=== PATIENT | male | born 1945 | race Caucasian/White ===

== ENCOUNTER → 2016-02-20 08:25 | Outpatient (CLI) | payer MEDICARE ==
[2015-08-22 13:38] VITALS: BMI 25.1
[~2016-02-20 08:25] MED LIST: ALBUTEROL2.5 MG/3 M UPD; ASPIRIN81 MG PO; CARAFATE1 G/10 ML PO; CELEXA20 MG PO; COLACE100 MG PO; CORDARONE200 MG PO; COREG 3.1253.125 MG PO; COUMADIN2.5 MG PO; COUMADIN5 MG PO; COZAAR50 MG PO; ELIQUIS2.5 MG PO; FERREX 150 PLUS1 CAP PO; FUROSEMIDE20 MG PO; GLUCOPHAGE1000 MG PO; HYDROCODONE-APA1 TAB PO; K-DUR20 MEQ PO; K-TAB10 MEQ PO; LASIX INJ40 MG/4 ML PO; LASIX20 MG PO; LISINOPRIL10 MG PO; LYRICA75 MG PO; MUCINEX600 MG PO; MULTIPLE VITAMI1 TA1 PO; NIFEDICAL30 MG/BOTT PO; NYSTATIN ORAL SU5 ML PO; NYSTATIN15 GM TOPICAL; PLAVIX75 MG PO; PRAVACHOL20 MG PO; PRAVASTATIN SOD10 MG PO; PREDNISONE10 MG PO; SENOKOT-S TABLE1 TAB PO; SINGULAIR10 MG PO; SOMA350 MG PO; TESSALON PERLE100 MG PO; ULTRACET TABLET1 TAB PO; ZOLOFT100 MG PO; ZOSYN 3.3753.375 G1 IV
[2016-02-20 09:37] LABS: PLT FUNCT.(P2Y12) PLAVIX 94 PRU (194-418)
== END | disposition home or self-care (01) ==
LOC: D.LAB 08:00
PROVIDERS: Internal Medicine Cardiovascular Disease
DX: Z51.81 Encounter for therapeutic drug level monitoring (principal); Z79.02 Long term (current) use of antithrombotics/antiplatelets

== ENCOUNTER 2016-03-09 18:16 | Inpatient (IN) | payer MEDICARE ==
[~2016-03-09] VITALS: Ht 177.8 cm; Wt 83.5 kg
[~2016-03-09 18:16] MED LIST changes: -COREG 3.1253.125 MG PO; -FERREX 150 PLUS1 CAP PO; -MUCINEX600 MG PO; -PLAVIX75 MG PO; -PREDNISONE10 MG PO; -SINGULAIR10 MG PO
[2016-03-09 20:00] VITALS: BP 112/65
[2016-03-09 22:39] VITALS: BP 112/65; BMI 26.0
--- NOTE | 2016-03-09 23:58 | NUR ---
PT ARRIVED TO UNIT VIA WHEELCHAIR AND FAMILY IN ROOM AT BEDSIDE CALL LIGHT IN REACH SRX2 BED LOW AND LOCKED NO DISTRESS OBSERVED RESPERATIONS EVEN SPO2 89% ON ROOM AIR PT PLACED ON 2LNC AND BREATHING TREATMENT ADMIN PT TOLERATED WELL NO DISTRESS OBSERVED WILL MONITOR
[2016-03-10] VITALS: BP 113/70
[2016-03-10 04:00] VITALS: BP 121/71
[2016-03-10 08:00] VITALS: BP 125/72
[2016-03-10 12:00] VITALS: BP 109/65
--- NOTE | 2016-03-10 12:10 | NUR ---
THIS AM PATIENT SOUNDED VERY WET IN LUNGS. IV STARTED WITH 20 GA IN R FOREARM. LASIX 40 MG GIVEN IV. AT BEDSIDE. UP TO BR WITH WIFES ASSISTANCE. FOR LUNCH PATIENT UP IN CHAIR TO EAT. WILL CONTINUE TO MONITOR
[2016-03-10 13:37] LABS: BASOPHILS 0.2 % (0.0-2.0); EOSINOPHILS 0.1 % (0-7); HEMATOCRIT 34.5 % (42.0-54.0); IMMATURE GRANULOCYTES 0.2 % (0-5); LYMPHOCYTES 18.6 % (15-50); MCH 23.6 pg (26.0-34.0); MCV 81.4 fL (80.0-100.0); MEAN PLATELET VOLUME 11.2 fL (7.4-10.4); MONOCYTES 12.3 % (2-11); NEUTROPHILS 68.6 % (40-80); PLATELET COUNT 260 10x3/uL (130-400); RBC 4.24 10x6/uL (4.20-6.10); RDW 17.7 % (11.5-14.5); WBC 8.2 10x3/uL (4.8-10.8)
[2016-03-10 14:00] LABS: ALBUMIN 3.1 g/dL (3.4-5.0); BILIRUBIN - TOTAL 0.55 mg/dL (0.2-1.3); CALCIUM 8.6 mg/dL (8.5-10.1); CARBON DIOXIDE 21.5 mmol/L (21.0-32.0); CREATININE - SERUM 1.7 mg/dL (0.6-1.3); POTASSIUM - SERUM 5.5 mmol/L (3.5-5.1); PROTEIN - SERUM 7.5 g/dL (6.4-8.2)
--- NOTE | 2016-03-10 14:00 | NUR ---
REC'D PT FROM [facility]. PT IS RESTING QUIETLY IN BED WITH EYES SHUT. RR NONLABORED WITH NC @2L IN PLACE. PT HAS A R.FA PIV WITH DRSG CDI AND SWAB CAPS IN USE. NO S/S OF DISTRESS OR ANY CURRENT NEEDS AT THIS TIME. CL IN REACH, BED IN LOWEST, SIDE RAILS X2. WILL CTM.
[2016-03-10 14:17] LABS: CKMB 1.5 U/L (0.0-3.6); CREATINE KINASE 116 UL (21-232); TROPONIN-I 0.018 ng/mL (0.000-0.060)
--- NOTE | 2016-03-10 14:25 | NUR ---
Patient Name: YINKA SANDHU Admission Status: Urgent Accout number: [id number] Admission Date: 03-09-2016 : 1945 Admission Diagnosis: Attending: HÉCTOR Current LOS: 1 Anticipated DC Date: Planned Disposition: Home Primary Insurance: MEDICARE A & B Discharge Planning Comments: * Is the patient Alert and Oriented? Yes 0 * How many steps to enter\exit or inside your home? NONE 0 * PCP DR. SMITH 0 * Pharmacy [facility] 0 * Preadmission Environment Home with Family 0 * ADLs Independent 0 * Equipment Wheelchair 0 * Other Equipment INR MACHINE (PT REPORTS NOT USING NOW) NO MEDICAL EQUIPMENT PROVIDER PREFERENCE 0 * List name and contact numbers for known caregivers / representatives who currently or will assist patient after discharge: EDUARDO SANDHUALEXUS, 0 * Community resources currently utilized Other 0 * Please name any agencies selected above. OUTPATIENT PHYSICAL THERAPY AT [facility] * Additional services required to return to the preadmission environment? No 0 * Can the patient safely return to the preadmission environment? Yes 0 * Has this patient been hospitalized within the prior 30 days at any hospital? No 0 CM MET WITH PT IN ROOM TO DISCUSS DISCHARGE PLANNING AND NEEDS. PT REPORTS LIVING AT HOME INDEPENDENTLY WITH SPOUSE. PT HAS A WHEELCHAIR THAT HE OCCAISIONALLY USES WELL AN INR MACHINE THAT HE NO LONGER USES. PT HAS NO MEDICAL EQUIPMENT PROVIDER PREFERENCE AND AND NO OUTSIDE SERVICES ASSISTING IN THE HOME. CM DISCUSSED AVAILABILITY OF HOME HEALTH, REHAB SERVICES AND MEDICAL EQUIPMENT. PT DENIES DISCHARGE NEEDS, REPORTS PLAN TO RETURN HOME WITH SPOUSE AND RESUME HIS OUTPATIENT PHYSICAL THERAPY AT [facility]. PT REPORTS HIS SPOUSE WILL PICK HIM UP FOR DISCHARGE HOME. PT PLANS TO DISCHARGE HOME WITH SPOUSE AND RESUME OUTPATIENT PHYSICAL THERAPY WITH [facility]. CM TO FOLLOW AND ASSIST NEEDED. Title I Director: Marin Horton
[2016-03-10 16:00] VITALS: BP 107/64
--- NOTE | 2016-03-10 17:40 | NUR ---
FSBS 123. NO COVERAGE REQUIRED PER SS INSULIN. PT VERY DROWSY AND LETHARGIC BUT WOKE UP TO FOLLOW COMMANDS AND SWALLOW. PT ALSO REC'D HIS SOLU-MEDROL VIA R.FA PIV, PUSHED SLOWLY OVER 2 MINS THEN FLUSHED AND SWAB CAPPED IT. PT DENIES WANTING TO EAT DINNER AND STATES HE IS JUST TIRED AND WOULD LIKE TO CONTINUE RESTING. CL IN REACH, BED IN LOWEST, SIDE RAILS X2. WILL CTM.
[2016-03-10 19:00] VITALS: BP 128/67
[2016-03-10 20:23] LABS: CKMB 1.5 U/L (0.0-3.6); CREATINE KINASE 180 UL (21-232)
[2016-03-10 20:26] LABS: TROPONIN-I < 0.017 ng/mL (0.000-0.060)
[2016-03-11] VITALS: BP 114/63
[2016-03-11 01:34] LABS: CREATINE KINASE 70 UL (21-232); TROPONIN-I 0.023 ng/mL (0.000-0.060)
[2016-03-11 04:00] VITALS: BP 122/68
[2016-03-11 06:32] LABS: BASOPHILS 0 % (0.0-2.0); EOSINOPHILS 0 % (0-7); HEMATOCRIT 30.9 % (42.0-54.0); HEMOGLOBIN 9.3 g/dL (13.5-17.5); IMMATURE GRANULOCYTES 0.2 % (0-5); LYMPHOCYTES 14.9 % (15-50); MCH 23.6 pg (26.0-34.0); MCHC 30.1 g/dL (31.0-37.0); MEAN PLATELET VOLUME 10.4 fL (7.4-10.4); MONOCYTES 2.2 % (2-11); NEUTROPHILS 82.7 % (40-80); PLATELET COUNT 240 10x3/uL (130-400); RBC 3.94 10x6/uL (4.20-6.10); RDW 17.2 % (11.5-14.5)
[2016-03-11 06:42] LABS: MCV 78.4 fL (80.0-100.0); WBC 4.5 10x3/uL (4.8-10.8)
[2016-03-11 06:48] LABS: ALBUMIN 2.9 g/dL (3.4-5.0); ANION GAP 17.3 mmol/L (8-16); BILIRUBIN - TOTAL 0.79 mg/dL (0.2-1.3); CALCIUM 8.4 mg/dL (8.5-10.1); CARBON DIOXIDE 21.8 mmol/L (21.0-32.0); CREATININE - SERUM 1.4 mg/dL (0.6-1.3); POTASSIUM - SERUM 5.1 mmol/L (3.5-5.1)
[2016-03-11 08:00] VITALS: BP 117/74
--- NOTE | 2016-03-11 09:25 | NUR ---
TELEMETRY SR. RESP UL ON 02 2L NC. STUDENT AT BS. WILL CONT. PLAN OF CARE.
--- NOTE | 2016-03-11 09:39 | NUR ---
UP AMBULATING HALLWAY WITH PT ASSIST.
[2016-03-11 11:40] LABS: % SATURATION 3 % (15-55); IRON 13 ug/dl (35-150); TOTAL IRON BIND CAPACITY 341 ug/dl (260-445); UNSAT IRON BIND CAPACITY 328 ug/dl (150-375)
[2016-03-11 11:50] VITALS: BP 105/60
--- NOTE | 2016-03-11 13:17 | NUR ---
UP AMBULATING HALLWAY WITH PT ASSIST.
[2016-03-11 15:28] VITALS: BP 116/65
--- NOTE | 2016-03-11 19:39 | NUR ---
RESUMED CARE OF PT, LYING IN BED RESPIRATIONS EVEN AND UNLABORED ON 2LPM VIA NC. 88 SR ON TELEMETRY. CALL LIGHT IN REACH. NO NEEDS VOICED AT THIS TIME. WILL CONTINUE TO MONITOR. SEE NURSE ASSESSMENT.
[2016-03-11 20:00] VITALS: BP 118/72
[2016-03-12] VITALS: BP 121/80
[2016-03-12 04:00] VITALS: BP 111/78
--- NOTE | 2016-03-12 04:19 | NUR ---
LYING IN BED WITH EYES CLOSED, CALL LIGHT IN REACH. WILL CONTINUE WITH PLAN OF CARE.
[2016-03-12 06:03] LABS: BASOPHILS 0 % (0.0-2.0); EOSINOPHILS 0 % (0-7); HEMATOCRIT 30.8 % (42.0-54.0); HEMOGLOBIN 9.2 g/dL (13.5-17.5); IMMATURE GRANULOCYTES 0.2 % (0-5); LYMPHOCYTES 6.8 % (15-50); MCH 23.4 pg (26.0-34.0); MCHC 29.9 g/dL (31.0-37.0); MCV 78.2 fL (80.0-100.0); MEAN PLATELET VOLUME 10.6 fL (7.4-10.4); MONOCYTES 4.5 % (2-11); NEUTROPHILS 88.5 % (40-80); PLATELET COUNT 233 10x3/uL (130-400); RBC 3.94 10x6/uL (4.20-6.10); RDW 17.3 % (11.5-14.5); WBC 9.3 10x3/uL (4.8-10.8)
[2016-03-12 06:37] LABS: ALBUMIN 2.8 g/dL (3.4-5.0); BILIRUBIN - TOTAL 0.52 mg/dL (0.2-1.3); CALCIUM 8.7 mg/dL (8.5-10.1); CARBON DIOXIDE 22.1 mmol/L (21.0-32.0); PROTEIN - SERUM 7.2 g/dL (6.4-8.2)
[2016-03-12 06:38] LABS: ANION GAP 14.9 mmol/L (8-16); CREATININE - SERUM 1.8 mg/dL (0.6-1.3)
--- NOTE | 2016-03-12 06:40 | NUR ---
NO CHANGES FROM PREVIOUS ASSESSMENT, CALL LIGHT IN REACH.
[2016-03-12 07:41] VITALS: BP 110/62
--- NOTE | 2016-03-12 09:13 | NUR ---
TELEMETRY SR. AMBULATES HALLWAY WITH PT ASSIST. WILL CONT. PLAN OF CARE.
--- NOTE | 2016-03-12 10:17 | NUR ---
SPUTUM SPECIMEN COLLECTED AND TAKEN TO LAB. WILL MONITOR.
[2016-03-12 11:00] VITALS: Ht 177.8 cm; Wt 83.5 kg
[2016-03-12 12:05] VITALS: BP 119/75
--- NOTE | 2016-03-12 15:18 | NUR ---
WOUND CARE CONSULT: NOTED RED/SLOW TO ASHLEY AREA ON RIGHT BUTTOCK (1CM X 1CM) COVERED WITH MEPILEX SACRAL DRESSING TO PROTECT. INSTRUCTED PT TO TURN/REPOSITION TO HIS SIDE. HE VOICED UNDERSTANDING.
--- NOTE | 2016-03-12 15:30 | NUR ---
MEPILEX DRSG APPLIED TO BUTTOCKS
[2016-03-12 16:05] VITALS: BP 120/76
[2016-03-12 20:00] VITALS: BP 104/63
--- NOTE | 2016-03-12 20:28 | NUR ---
RESUMED CARE OF PT, UP ON SIDE OF BED RESPIRATIONS EVENAND UNLABOREDON 2LPM VIA NC. 81 SR ON TELEMETRY. NO NEEDS VOICED AT THIS TIME. WILL CONTINUE TO MONITOR. SEE NURSE ASSESSMENT.
--- NOTE | 2016-03-12 23:27 | NUR ---
IV INFILTRATED, DC'D WITH TIP INTACT. 20 GAUGE X 2 STICKS TO LEFT FOREARM.
[2016-03-13] VITALS: BP 109/62
--- NOTE | 2016-03-13 02:08 | NUR ---
LYING IN BED WITH EYES CLOSED, CALL LIGHT IN REACH. WILL CONTINUE WITH PLAN OF CARE.
[2016-03-13 04:00] VITALS: BP 123/69
[2016-03-13 05:57] LABS: BASOPHILS 0 % (0.0-2.0); EOSINOPHILS 0 % (0-7); HEMATOCRIT 30.1 % (42.0-54.0); HEMOGLOBIN 9.1 g/dL (13.5-17.5); IMMATURE GRANULOCYTES 0.3 % (0-5); LYMPHOCYTES 4.7 % (15-50); MCH 23.6 pg (26.0-34.0); MCHC 30.2 g/dL (31.0-37.0); MCV 78.2 fL (80.0-100.0); MEAN PLATELET VOLUME 10.7 fL (7.4-10.4); MONOCYTES 4.7 % (2-11); NEUTROPHILS 90.3 % (40-80); PLATELET COUNT 223 10x3/uL (130-400); RBC 3.85 10x6/uL (4.20-6.10); RDW 17.4 % (11.5-14.5)
[2016-03-13 05:59] LABS: WBC 12.2 10x3/uL (4.8-10.8)
[2016-03-13 06:38] LABS: ALBUMIN 2.6 g/dL (3.4-5.0); ANION GAP 14.9 mmol/L (8-16); BILIRUBIN - TOTAL 0.6 mg/dL (0.2-1.3); CALCIUM 8.6 mg/dL (8.5-10.1); CARBON DIOXIDE 22.8 mmol/L (21.0-32.0); CREATININE - SERUM 1.6 mg/dL (0.6-1.3); MAGNESIUM - SERUM 1.9 mg/dL (1.8-2.4); PHOSPHOROUS 3.6 mg/dL (2.5-4.9); POTASSIUM - SERUM 3.7 mmol/L (3.5-5.1); PROTEIN - SERUM 6.6 g/dL (6.4-8.2)
--- NOTE | 2016-03-13 06:39 | NUR ---
NO CHANGES FROM PREVIOUS ASSESSMENT, CALL LIGHT IN REACH. UPDRAFT IN PROGRESS.
--- NOTE | 2016-03-13 07:20 | NUR ---
RECEIVED REPORT AT THIS TIME. WILL CONTINUE PLAN OF CARE. WILL CONTINUE TO MONITOR.
[2016-03-13 08:06] VITALS: BP 97/61
--- NOTE | 2016-03-13 09:56 | NUR ---
PT IS ALERT. ASSESSMENT DONE PER FLOWSHEET. NO CO PAIN AT THIS TIME. WILL CONTINUE TO MONITOR.
[2016-03-13 12:00] VITALS: BP 95/55
--- NOTE | 2016-03-13 13:36 | CN ---
PATIENT NAME:YINKA SANDHU MEDICAL RECORD: [id number] : 43 LOCATION:D. D.2117 ADMIT DATE: 03/09/16 ACCOUNT: [id number] CONSULTING PHYSICIAN: RICHY JOHNSON MD REFERRING PHYSICIAN: MERCEDES SMITH M.D. DATE OF CONSULTATION: 03/10/2016 HISTORY OF PRESENT ILLNESS: A 70-year-old gentleman with a history of coronary artery disease, status post coronary bypass grafting; history of myopathy, improved on therapy ____, admitted with increasing shortness of breath, dyspnea. By his report, it has been ongoing now for a couple days. He had a left pleural effusion back in August 2015 requiring thoracentesis. He reports some cough, greyish blood-tinged. Temperature 100.4, while admitted. We are asked to see him concerning his cardiovascular status PAST MEDICAL HISTORY: Includes: 1. History of hypertension. 2. Coronary artery disease. 3. Cardiomyopathy, improved on therapy. 4. Atrial fibrillation. 5. Deep venous thrombosis with pulmonary embolus. 6. Diabetes mellitus. ALLERGIES: None known. SOCIAL HISTORY: Nonsmoker, nondrinker. He takes care of his ADLs, does try to exercise on a regular basis. MEDICATIONS: Include: 1. Eliquis 2.5 b.i.d. 2. Nifedipine 30 q. day. 3. Aspirin 81 q. day. 4. Lyrica 75 b.i.d. 5. Lasix 40 q. day. 6. Metformin 1 gram b.i.d. REVIEW OF SYSTEMS: The patient reports easy bruising but reports no swollen glands. The patient reports no fever, no night sweats, no significant weight gain, no significant weight loss. No significant exercise tolerance. The patient reports no dry eyes, no irritation, no vision change. Patient reports no difficulty hearing and no ear pain. The patient reports no frequent nose bleeds or nose and sinus problems. Patient reports on arm pain on exertion. No shortness of breath while lying down. No history of heart murmur. The patient reports no cough, no wheezing or coughing up blood. Patient reports no abdominal pain, no vomiting. Normal appetite. No diarrhea and not vomiting blood. No nausea and no constipation. Patient reports no incontinence. No difficulty urinating. No hematuria. No increased frequency. Patient reports no muscle aches. No weakness, no arthralgias, no back pain. No swelling of the extremities. Patient reports no abnormal mole, no jaundice, no rashes. Reports no loss of consciousness. No weakness and no numbness. No seizures, dizziness, or headaches. The patient reports no depression, no sleep disturbance, feeling safe in a relationship and no alcohol abuse. Patient reports on fatigue. Reports no runny nose or sinus pressure. No itching, no hives, and no frequent sneezing. CONSULT REPORT [id number] YINKA SANDHU PHYSICAL EXAMINATION: GENERAL: Pleasant gentleman, in no acute distress. VITAL SIGNS: 109/65, pulse 77. HEENT: Normocephalic, atraumatic. NECK: No bruits are noted. HEART: Regular, II/ ejection murmur. LUNGS: Had a prolonged expiratory phase with expiratory wheezes. Fair air excursion. ABDOMEN: Soft, nontender. EXTREMITIES: Pulses 2+. Trace edema. NEUROLOGIC: Grossly intact. IMPRESSION: 1. Worsening dyspnea, might be an infectious component with elevated temperature. 2. We will check echocardiographic study to assess LV function. Further recommendations based on the above. TRANSINT:[id number] Voice Confirmation ID: [id number] DOCUMENT ID: [id number] RICHY JOHNSON MD at 1336 CC: [id number] DICTATION DATE: 03/10/16 135 CRITICAL CARE PHYSICIAN ASSISTANT: 03/10/162042 ADM IN [facility] [address] [place] [address]
[2016-03-13 16:00] VITALS: BP 105/61
[2016-03-13 20:51] VITALS: BP 162/83
[2016-03-14 00:54] VITALS: BP 129/74
[2016-03-14 04:03] VITALS: BP 115/69
[2016-03-14 05:20] LABS: BASOPHILS 0.1 % (0.0-2.0); EOSINOPHILS 0 % (0-7); HEMATOCRIT 32.2 % (42.0-54.0); HEMOGLOBIN 9.5 g/dL (13.5-17.5); IMMATURE GRANULOCYTES 0.2 % (0-5); LYMPHOCYTES 5.8 % (15-50); MCH 23.3 pg (26.0-34.0); MCHC 29.5 g/dL (31.0-37.0); MCV 78.9 fL (80.0-100.0); MEAN PLATELET VOLUME 11.2 fL (7.4-10.4); MONOCYTES 4.8 % (2-11); NEUTROPHILS 89.1 % (40-80); PLATELET COUNT 222 10x3/uL (130-400); RBC 4.08 10x6/uL (4.20-6.10); RDW 17.4 % (11.5-14.5); WBC 13.8 10x3/uL (4.8-10.8)
[2016-03-14 05:45] LABS: ALBUMIN 2.7 g/dL (3.4-5.0); ANION GAP 13.7 mmol/L (8-16); BILIRUBIN - TOTAL 0.7 mg/dL (0.2-1.3); CALCIUM 8.7 mg/dL (8.5-10.1); CREATININE - SERUM 1.5 mg/dL (0.6-1.3); POTASSIUM - SERUM 3.7 mmol/L (3.5-5.1); PROTEIN - SERUM 6.9 g/dL (6.4-8.2)
[2016-03-14 07:35] VITALS: BP 115/71
--- NOTE | 2016-03-14 09:42 | NUR ---
TELEMETRY SR. RESP UL ON 02 2L NC. AMBULATES HALLWAY WITH NURSING ASSIST. MOVED TO 2112 ON DROPLET ISOLATION. WILL CONT. PLAN OF CARE.
[2016-03-14 11:19] VITALS: BP 120/72
[2016-03-14 15:09] VITALS: BP 115/69
[2016-03-14 21:17] VITALS: BP 118/65
--- NOTE | 2016-03-14 21:22 | NUR ---
PT RESTING IN BED. GUEST AT BEDSIDE EARLIER, VERY INVASIVE. FREQUENTLY VIOLATES PERSONAL SPACE. DEMANDING THAT PT BE GIVEN MEDICATIONS THAT ARE NOT PART OF HIS MAR. PROVIDED PT WITH DOTTIE. AND DEMANDING MEDICAL INFORMATION ABOUT PT. GUEST INFORMED TO SPEAK WITH DOCTOR SEVERAL TIMES.
[2016-03-15 02:01] VITALS: BP 106/63
--- NOTE | 2016-03-15 02:12 | NUR ---
EYES CLOSED, RESP UNLAB NO S/S OF ACUTE DISTRESS NOTED REMAINS IN DROPLET ISOLATION PER PROTOCOL FOR MRSA IN SPUTUM. HOB UP SR UP X2, C/L IN REACH. CONTINUE TO MONITOR.
[2016-03-15 04:25] VITALS: BP 103/59
[2016-03-15 05:08] LABS: BASOPHILS 0.1 % (0.0-2.0); EOSINOPHILS 0 % (0-7); HEMATOCRIT 30.5 % (42.0-54.0); HEMOGLOBIN 9.2 g/dL (13.5-17.5); IMMATURE GRANULOCYTES 0.3 % (0-5); LYMPHOCYTES 8.3 % (15-50); MCH 23.7 pg (26.0-34.0); MCHC 30.2 g/dL (31.0-37.0); MCV 78.6 fL (80.0-100.0); MEAN PLATELET VOLUME 10.9 fL (7.4-10.4); MONOCYTES 7.9 % (2-11); NEUTROPHILS 83.4 % (40-80); PLATELET COUNT 215 10x3/uL (130-400); RBC 3.88 10x6/uL (4.20-6.10); RDW 17.7 % (11.5-14.5); WBC 12.8 10x3/uL (4.8-10.8)
[2016-03-15 05:33] LABS: ALBUMIN 2.7 g/dL (3.4-5.0); ANION GAP 15.2 mmol/L (8-16); BILIRUBIN - TOTAL 0.6 mg/dL (0.2-1.3); CALCIUM 8.9 mg/dL (8.5-10.1); CARBON DIOXIDE 22.2 mmol/L (21.0-32.0); CREATININE - SERUM 1.6 mg/dL (0.6-1.3); POTASSIUM - SERUM 3.4 mmol/L (3.5-5.1); PROTEIN - SERUM 6.9 g/dL (6.4-8.2)
[2016-03-15 07:28] VITALS: BP 114/65
[2016-03-15 11:57] VITALS: BP 150/71
[2016-03-15 15:10] VITALS: BP 111/64
--- NOTE | 2016-03-15 18:37 | NUR ---
NO CHANGE. DENIES PAIN. SOB TREAT WITH OXYGEN THERAPY AND UPDRAFTS. SINUS RHYTHM ON TELEMETRY 72bpm WITH PVCs. PREPAIR SHIFT CHANGE REPORT. CONTINUE PLAN OF CARE AND SAFETY PRECAUTIONS.
[2016-03-15 20:00] VITALS: BP 126/69
[2016-03-16] VITALS: BP 127/65
--- NOTE | 2016-03-16 02:30 | NUR ---
PT WAS FIDGETING WITH HIS IV R/T THE TAPE BOTHERING HIM AND DISLODGED THE IV COMPLETELY TO WHERE IT WAS RUNNING DOWN HIS ARM. IV REMOVED WITH CATH TIP INTACT. THE VIBRAMYCIN WAS STILL INFUSING. PT DID NOT CALL FOR ASSISTANCE. CONTINUE TO MONITOR CLOSELY.
[2016-03-16 04:00] VITALS: BP 113/68
--- NOTE | 2016-03-16 04:43 | NUR ---
PT HAS HAD TRANSIENT CONFUSION THIS SHIFT, ABOUT PLACE, AND TIME. PT STATES HE IS EXTREMELY HOMESICK, MILDLY TEARFUL, AND RESTLESS. PT DENIES ANY NEEDS, OTHER THAN JUST WANTING TO GO HOME. PT IS CURRENTLY PACING IN HIS ROOM. WILL CONTINUE TO MONITOR CLOSELY.
[2016-03-16 05:09] LABS: BASOPHILS 0 % (0.0-2.0); EOSINOPHILS 0.1 % (0-7); IMMATURE GRANULOCYTES 0.4 % (0-5); LYMPHOCYTES 9.2 % (15-50); MCHC 29.4 g/dL (31.0-37.0); MCV 78.3 fL (80.0-100.0); MEAN PLATELET VOLUME 11.5 fL (7.4-10.4); MONOCYTES 8.4 % (2-11); NEUTROPHILS 81.9 % (40-80); RBC 4.34 10x6/uL (4.20-6.10); RDW 17.7 % (11.5-14.5); WBC 15.2 10x3/uL (4.8-10.8)
[2016-03-16 05:26] LABS: PLATELET COUNT 271 10x3/uL (130-400)
[2016-03-16 05:41] LABS: ANION GAP 14.7 mmol/L (8-16); CARBON DIOXIDE 25.5 mmol/L (21.0-32.0); CREATININE - SERUM 1.5 mg/dL (0.6-1.3)
[2016-03-16 05:43] LABS: POTASSIUM - SERUM 3.2 mmol/L (3.5-5.1)
[2016-03-16 08:00] VITALS: BP 130/60
--- NOTE | 2016-03-16 10:26 | NUR ---
ALERT AND ORIENTED X4. [place]. MULTIFOCAL PVCs 106bpm ON TELEMETRY. NOTIFY OF RHYTHM CHANGE. DENIES PAIN. O2 @ 2L NC FOR SOB. CONTINUE PLAN OF CARE. BED LOCKED AND LOW. CALL LIGHT IN REACH. TWO SIDERAILS UP. RECIEVES LOVENOX INJ. NO SCDs.
[2016-03-16 12:00] VITALS: BP 111/65
[2016-03-16 16:00] VITALS: BP 108/76
[2016-03-16 22:18] VITALS: BP 132/67
[2016-03-17 01:42] VITALS: BP 122/77
--- NOTE | 2016-03-17 04:01 | NUR ---
NURSE ROUNDS 21:00 - PT AWAKE, ALERT, ORIENTED, DENIES ANY NEEDS. PT IS EATING A MUFFIN BROUGHT IN BY FAMILY. PT IS UP OUT OF BED STANDING AT BEDSIDE TABLE EATING. PT IS MILDLY CONFUSED, WHETHER R/T HIS MUCKLESHOOT OR SIMPLY NOT UNDERSTANDING CERTAIN TASKS. WILL CONTINUE TO MONITOR CLOSELY.
[2016-03-17 05:48] VITALS: BP 116/69
[2016-03-17 07:45] VITALS: BP 128/71
[2016-03-17 12:20] VITALS: BP 123/69
--- NOTE | 2016-03-17 14:25 | NUR ---
ALERT AND ORIENTED X4. DENIES PAIN OR SOB. UP AMBULATING IN [place]. GAIT STEADY. SINUS RHTYHM 77bpm WITH PVCs ON TELEMETRY. CONTINUE PLAN OF CARE. BED LOCKED AND LOW. CALL LIGHT IN REACH. TWO SIDERAILS UP.
[2016-03-17 15:43] VITALS: BP 120/78
[2016-03-17 20:03] VITALS: BP 108/59
[2016-03-18 01:14] VITALS: BP 118/70
[2016-03-18 04:00] VITALS: BP 112/67
--- NOTE | 2016-03-18 05:37 | NUR ---
NURSE ROUNDS 21:00 - PT AWAKE, ALERT, ORIENTED, DENIES ANY NEEDS. CONTINUE TO MONITOR CLOSELY.
[2016-03-18 05:52] LABS: BASOPHILS 0 % (0.0-2.0); EOSINOPHILS 0.3 % (0-7); HEMOGLOBIN 9.3 g/dL (13.5-17.5); IMMATURE GRANULOCYTES 0.3 % (0-5); LYMPHOCYTES 15.1 % (15-50); MCH 23.1 pg (26.0-34.0); MCV 77.1 fL (80.0-100.0); MEAN PLATELET VOLUME 11.5 fL (7.4-10.4); MONOCYTES 10.1 % (2-11); NEUTROPHILS 74.2 % (40-80); PLATELET COUNT 240 10x3/uL (130-400); RBC 4.02 10x6/uL (4.20-6.10); RDW 17.8 % (11.5-14.5); WBC 11.7 10x3/uL (4.8-10.8)
[2016-03-18 06:25] LABS: ALBUMIN 2.7 g/dL (3.4-5.0); ANION GAP 12.7 mmol/L (8-16); BILIRUBIN - TOTAL 0.73 mg/dL (0.2-1.3); CALCIUM 8.2 mg/dL (8.5-10.1); CARBON DIOXIDE 25.8 mmol/L (21.0-32.0); CREATININE - SERUM 1.3 mg/dL (0.6-1.3); POTASSIUM - SERUM 3.5 mmol/L (3.5-5.1); PROTEIN - SERUM 6.6 g/dL (6.4-8.2)
--- NOTE | 2016-03-18 06:48 | NUR ---
PT LYING IN BED, EYES CLOSED, RESPIRATIONS EVEN AND UNLABORED. PT IS EASILY ROUSABLE TO VERBAL STIMULI. DENIES ANY NEEDS. CONTINUE TO MONITOR CLOSELY. I DID GIVE PT 2 PKS OF DENIZ BOBBY. CONTINUE TO MONITOR CLOSELY.
[2016-03-18 07:50] VITALS: BP 124/59
--- NOTE | 2016-03-18 10:35 | NUR ---
Nutrition follow-up: Diet: Regular mechanical soft with thin liquids PO intake 100% of most meals Pt also receiving some food from family, friends Labs reviewed +BM Wt: 184# PO intake is good at this time. RDN following.
[2016-03-18 11:59] VITALS: BP 119/56
[2016-03-18] MEDS ORDERED: FERREX 150 PLUS1 CAP PO (13:04)
[2016-03-18] MEDS ORDERED: SINGULAIR10 MG PO (13:04)
[2016-03-18] MEDS ORDERED: PLAVIX75 MG PO (13:04)
[2016-03-18] MEDS ORDERED: NYSTATIN ORAL SU5 ML PO (13:04)
[2016-03-18] MEDS ORDERED: MUCINEX600 MG PO (13:04)
[2016-03-18] MEDS ORDERED: COREG 3.1253.125 MG PO ×2 (13:04→13:05)
[2016-03-18] MEDS ORDERED: ZOLOFT100 MG PO (13:07)
[2016-03-18] MEDS ORDERED: PREDNISONE10 MG PO (13:09)
--- NOTE | 2016-03-18 14:54 | NUR ---
PER PATIENT, STATES HE HAS HAD FLU VACCINE FOR THIS SEASON. UNABLE TO CORRECT ADMISSION HISTORY TO REFLECT THIS
[2016-03-18] MEDS ORDERED: GLUCOPHAGE1000 MG PO (15:10)
--- NOTE | 2016-03-18 16:30 | NUR ---
D/C IV IN RT UPPER ARM MIDLINE WITH 2X2 AND TAPE APPLIED. DISCHARGE INSTRUCTIONS EXPLAINED AND GIVEN TO PT. D/C VIA WHEELCHAIR WITH . ALERT AND ORIENTED X3.
--- NOTE | 2016-04-03 08:46 | EC ---
PATIENT:YINKA SANDHU DATE OF SERVICE: 03/09/16 SEX: M MEDICAL RECORD: [id number] DATE OF : [birth year] LOCATION:D.M2 D.211 AGE OF PATIENT: 70 ADMISSION DATE: 03/09/16 REFERRING PHYSICIAN: INTERPRETING PHYSICIAN: AMRIT VILLALBA MD ECHOCARDIOGRAM REPORT ECHO CHARGES 4 ECHO COMPLETE CLINICAL DIAGNOSIS: ECHOCARDIOGRAPHIC MEASUREMENTS (adult normal given) AC root (d.<3.7cm) 2.7 LV Septum d (<1.2 cm> 1.6 Valve Excursion 1.3 LV Septum (systole) 2.0 Left Atria (s.<4.0cm> 4.8 LVPW d(<1.2cm) 1.5 RV (d.<2.3cm) 2.6 LVPW (sytole) 1.8 LV diastole(<5.6CM) 5.6 MV E-F(>70mm/sec) LV systole 3.9 LVOT Diameter 1.7 MV exc.(>10mm) Est.ejection fraction (50-75%) Pericardial Effusion N DOPPLER: LVIT A 53.0 E 128 LA RVSP 40.0 LVOT 83.0 AOP1/2T Asc. Ao 218 RVOT 58.0 RA PA 88.0 AV Gradient Peak 19.0 AV Mean 10.0 AV Area 0.8 MV Gradient Peak 6.0 MV Mean 2.2 MV Area COMMENTS: Supply Chain Intern: Cheryl ARENASOE Deputy Administrator:Lynda Escudero TAPE# PACS DATE OF SERVICE: 03/11/2016 Echocardiogram FINDINGS: 1. Left ventricular chamber size is dilated mildly. Left ventricular systolic function is markedly reduced. Overall ejection fraction 25% to 30%. 2. Left atrium is enlarged at 4.8 cm. Right atrium and right ventricular chamber sizes are as well mildly dilated. 3. Valvular structures: Aortic valve demonstrates [id number] calcific ECHOCARDIOGRAM REPORT [id number] YINKA SANDHU aortic stenosis. The valve area calculates to 0.8 cm-squared and there is a gradient of 19 mm across the valve. The remaining valvular structures have normal structure and motion. 4. Doppler interrogation reveals mild mitral regurgitation, moderate tricuspid regurgitation, no other valvular insufficiency or stenosis and pulmonary systolic pressure is mildly elevated estimated at 40 mmHg. 5. No evidence of pericardial effusion or left ventricular thrombus. TRANSINT:[id number] Voice Confirmation ID: [id number] DOCUMENT ID: [id number] 03/23/2016 Edited to correct date of service, [email or web address]. AMRIT VILLALBA MD at 0846 CC: [id number] DICTATION DATE: 03/12/16 1222 GREIGE GOODS EXAMINER: 03/12/16 1340 DIS IN 03/18/16 [place] [id number]
== END 2016-03-18 17:13 | disposition home or self-care (01) | DRG 190 ==
LOC: D.M2 18:16
PROVIDERS: Emergency Medicine; Family Medicine; Internal Medicine Pulmonary Disease; ADMIT Family Medicine
PROC: 05HB33Z Insertion of Infusion Device into Right Basilic Vein, Percutaneous Approach (ICD-10-PCS; principal; 2016-03-16)
PROC: B54MZZA Ultrasonography of Right Upper Extremity Veins, Guidance (ICD-10-PCS; 2016-03-16)
DX: J44.0 Chronic obstructive pulmonary disease with (acute) lower respiratory infection (principal); J15.212 Pneumonia due to Methicillin resistant Staphylococcus aureus; J15.5 Pneumonia due to Escherichia coli; I50.21 Acute systolic (congestive) heart failure; I42.9 Cardiomyopathy, unspecified; I13.0 Hypertensive heart and chronic kidney disease with heart failure and stage 1 through stage 4 chronic kidney disease, or unspecified chronic kidney disease; I50.32 Chronic diastolic (congestive) heart failure; J44.1 Chronic obstructive pulmonary disease with (acute) exacerbation; I25.10 Atherosclerotic heart disease of native coronary artery without angina pectoris; E11.22 Type 2 diabetes mellitus with diabetic chronic kidney disease; I48.91 Unspecified atrial fibrillation; J30.9 Allergic rhinitis, unspecified; G47.33 Obstructive sleep apnea (adult) (pediatric); I08.3 Combined rheumatic disorders of mitral, aortic and tricuspid valves; D64.9 Anemia, unspecified; E78.5 Hyperlipidemia, unspecified; N18.9 Chronic kidney disease, unspecified; E87.6 Hypokalemia; B37.9 Candidiasis, unspecified; D50.9 Iron deficiency anemia, unspecified; R74.8 Abnormal levels of other serum enzymes; Z86.718 Personal history of other venous thrombosis and embolism

== ENCOUNTER 2016-05-04 13:11 | Inpatient (IN) | payer MEDICARE ==
[~2016-05-04] VITALS: Ht 175.3 cm; Wt 82.3 kg
--- NOTE | ~2016-05-04 | EC ---
PATIENT:YINKA SANDHU DATE OF SERVICE: 05/04/16 SEX: M MEDICAL RECORD: [id number] DATE OF : 43 LOCATION:D.M2 D.213 AGE OF PATIENT: 70 ADMISSION DATE: 05/04/16 REFERRING PHYSICIAN: INTERPRETING PHYSICIAN: AMRIT ALICIA MD ECHOCARDIOGRAM REPORT ECHO CHARGES 4 ECHO COMPLETE CLINICAL DIAGNOSIS: DYSPNEA/COPD HX OF CAD/CABG/STENTS ECHOCARDIOGRAPHIC MEASUREMENTS (adult normal given) AC root (d.<3.7cm) 4.1 LV Septum d (<1.2 cm> 1.2 Valve Excursion 1.9 LV Septum (systole) 1.4 Left Atria (s.<4.0cm> 4.8 LVPW d(<1.2cm) 1.7 RV (d.<2.3cm) 6.2 LVPW (sytole) 1.8 LV diastole(<5.6CM) 5.5 MV E-F(>70mm/sec) LV systole 4.5 LVOT Diameter 1.5 MV exc.(>10mm) 1.2 Est.ejection fraction (50-75%) Pericardial Effusion N DOPPLER: LVIT A 69.0 E 124 LA RVSP 53 LVOT 82 AOP1/2T 407 Asc. Ao 178 RVOT 93 RA PA 90 AV Gradient Peak 12.61 AV Mean 7.21 AV Area 1.0 MV Gradient Peak 6.54 MV Mean 2.05 MV Area COMMENTS: Car Racer: Andrew ELIZABETH Fiberglass Machine Operator:1 Dr. Alicia TAPE# PACS DATE OF SERVICE: 05/04/2016 FINDINGS: 1. Left ventricular chamber size is within normal limits. Left ventricular systolic function is normal. Overall ejection fraction estimated at 60%. 2. Left atrium, right atrium, and right ventricle chamber sizes are within normal limits. 3. Valvular structures have normal structure and motion. 4. Doppler interrogation reveals mild mitral regurgitation, moderate tricuspid regurgitation, no other valvular insufficiency or stenosis. Pulmonary systolic ECHOCARDIOGRAM REPORT [id number] YINKA SANDHU pressure is mildly elevated estimated at 53 mmHg. 5. No evidence of pericardial effusion or left ventricular thrombus. TRANSINT:[id number] Voice Confirmation ID: [id number] DOCUMENT ID: [id number] 05/13/2016 Edited to correct date of service, dm. AMRIT ALICIA MD CC: [id number] DICTATION DATE: 05/05/16 1432 RETAIL MANAGER IN TRAINING: 05/05/162119 ADM IN [place] [id number] [place] [id number]
--- NOTE | ~2016-05-04 | DS ---
PATIENT:YINKA SANDHU :43 MEDICAL RECORD: [id number] DISCHARGE SUMMARY ADMISSION DATE: 05/04/16 DISCHARGE DATE: 05/19/16 DATE OF ADMISSION: 05/04/2016 DATE OF DISCHARGE: 05/19/2016 ADMITTING DIAGNOSES: Chronic obstructive pulmonary disease exacerbation, hematuria, type 2 diabetes mellitus with hyperglycemia, anemia of unknown etiology, chronic ____, pulmonary embolus, hypertension, hyperlipidemia, congestive heart failure, coronary artery disease, deep venous thrombosis. HOSPITAL COURSE: This is a gentleman of Dr. Middleton's admitted from the clinic with diagnoses as outlined above. Details are well-outlined in the history of the present illness, H&P. All events, lab procedures, diagnostic testing are well documented in the records. CONSULTANTS: Dr. Majano, urology; Dr. Capellan, cardiology; Dr. Trav Dorsey, nephrology; and Dr. Albarran, pulmonary. Dr. Majano with urology saw him in consultation and felt penile edema to be part of generalized bilateral leg edema. No procedures planned from his standpoint. Echocardiogram showed EF 60%, no pericardial effusion, no ventricular thrombus. He had mild mitral regurg, moderate tricuspid regurg, pulmonary systolic pressure was 53. He was worked up for nephrotic syndrome. He did not have any significant proteinuria, only 1+ on UA. He was put on high dose diuretics and still had continued problems with lower extremity edema. Dr. Capellan was suspecting some right-sided failure. He did undergo right heart catheterization. He was found to have a fixed pulmonary hypertension. He did start to finally improve to the diabetic regimen. He was on Lasix 80 twice a day as well as Zaroxolyn was added. His metformin was stopped per Dr. Ochoa, started on Januvia and was continued on sliding scale insulin. He was on Eliquis for his history of chronic DVT. From a pulmonary standpoint, he was felt to be stable. He had left recurrent pleural effusion and Dr. Albarran felt there was no need for further tap, it was a left loculated effusion. He felt antibiotics were not warranted and overall his status improved and he was stable for transfer down to rehab. He did have some periods of hospital psychosis and because of his history of dementia, a low dose of Aricept was added. He is stable for dismissal or transfer down to inpatient rehab today and this was discussed with his . She is agreeable with the plan. VITAL SIGNS: He is afebrile, pulse 92, respirations 18, blood pressure 110/66, O2 94%. LABORATORY DATA: Glucose 157. White count 8, hemoglobin 10.8, platelets are 260. He does have anemia of chronic disease. Sodium 142, potassium 3.7, chloride 104, CO2 of 29, BUN 37, serum creatinine 1.3, AST 38, ALT 43, alkaline phosphatase 91, albumin 2.7. DIAGNOSES AT THE TIME OF DISCHARGE: Include chronic obstructive pulmonary disease exacerbation, improved; hematuria, resolved; type 2 diabetes mellitus DISCHARGE SUMMARY REPORT [id number] YINKA SANDHU with hyperglycemia; anemia, iron deficient; fixed pulmonary hypertension; history of pulmonary embolus; hypertension; hyperlipidemia; congestive heart failure by history; coronary artery disease; history of deep venous thrombosis; loculated left pleural effusion; history of ____ with positive sleep study. He also has a history of pulmonary embolus as well as the deep venous thrombosis and also asthma. Greater than 30 minutes was spent on this discharge. Please refer to med rec. TRANSINT:[id number] Voice Confirmation ID: [id number] DOCUMENT ID: [id number] Dictated By: GONZALEZ HAHN RN I have interviewed/examined the above patient and agree with these documented findings. SARINA ORTIZ MD CC: [id number] DICTATION DATE: 05/19/16 154 FILTER TANK OPERATOR: 05/20/16 0144 DIS IN 05/19/16 [facility] [address] [place] [address]
--- NOTE | ~2016-05-04 | HEMODYNAMI ---
PATIENT:YINKA SANDHU MEDICAL RECORD: [id number] : 43 LOCATION[id number] ADMISSION DATE: 05/04/16 Generatedon:05/16/201611:16 Patient name: YINKA SANDHU Patient #: [id number] SSN: [id number] : 1945 Date of study: 05/16/2016 Page: Of Hemodynamic Procedure Report Patient Data Patient Demographics Procedure consent was obtained First Name: YINKA Gender: Male Last Name: PHOEBE : 1945 [facility] Initial: ANASTASIA Age: 70 year(s) Patient #: [id number] Race: SSN: [id number] Additional ID: [id number] Contact details Address: [address] [place] [address] State: [place] City: [place] Zip code: [address] Admission Admission Data Admission Date: 05/04/2016 Admission Time: 13:11 Arrival Date: 05/04/2016 Arrival Time: 13:11 Admit Source: Other Insurance Payor: Medicare Room #: D.2132 Weight (lbs.): 170.4 Weight (kg.): 77.29 Lab Results Lab Result Date: 05/16/2016 Lab Result Time: 0:00 Biochemistry Name Units Result Min Max BUN mg/dl 37 --(----)-* 7 18 Creatinine mg/dl 1.3 --(---*)-- 0.6 1.3 CBC Name Units Result Min Max Hemoglobin g/dl 10.8 *-(----)-- 13.5 17.5 Procedure Procedure Types Cath Procedure Diagnostic Procedure Right Heart Right Heart Cath Miscellaneous Procedures Moderate Sedation up to 45 minutes Procedure Description Procedure Date Procedure Date: 05/16/2016 Procedure Start Time: 10:30 Procedure End Time: 11:13 Procedure Staff Name Function Neo Capellan MD Performing Physician Hiwot Qureshi RT Scrub Andreina Diaz RN Nurse Alicja Doshi RT Monitor Procedure Data Cath Procedure Fluoroscopy Diagnostic fluoroscopy Total fluoroscopy Time: 14 time: 14 min min Diagnostic fluoroscopy Total fluoroscopy dose: 478 dose: 478 mGy mGy Contrast Material Contrast Material Type Amount (ml) Isovue 370 0 Entry Location Entry Primary Successful Side Size Upsize Upsize Entry Closure Succes sful Closure Location (Fr) 1 (Fr) 2 (Fr) Remarks Device Remarks Femoral Right 7 Fr Exoseal artery Short Estimated blood loss: 5 ml Diagnostic catheters Device Type Used For End Catheter Placement Mckeon [employer] 7Fr Pressure [place] Thermodilution ronn Measurement [employer] 7Fr Pressure [place] Thermodilution ronn Measurement Procedure Complications No complications Procedure Medications Medication Administration Route Dosage Oxygen NC 3 l/min Lidocaine 2% added to field 20 Heparin Flush Bag added to field 2 bags (1000units/500ml NS) 0.9% NaCl I.V. 50 ml/hr Versed I.V. 0.5 mg Fentanyl I.V. 25 mcg Fentanyl I.V. 25 mcg Adenosine IV 3mg/ml I.V. 50 mcg/kg/min Adenosine IV 3mg/ml I.V. 100 mcg/kg/min Adenosine IV 3mg/ml I.V. 150 mcg/kg/min Adenosine IV 3mg/ml I.V. Hemodynamics Rest HGB: 10.8 (g/dl) Heart Rate: 70 (bpm) Pressure Samples Time Site Value (mmHg) Purpose Heart Use Rate(bpm) 10:51 PA 90/43(60) Snapshot 90 10:52 PCW 31/31(30) Snapshot 90 11:05 RV 80/13,36 Snapshot 90 11:07 RA 32/32(27) Snapshot 90 Snapshots Pre Cath Intra NCS Post Cath Vital Signs Time Heart Resp SPO2 etCO2 PM6acdp NIBP (mmHg) Rhythm Pain Sedation Rate (ipm) (%) (mmHg) (mmHg) Status Level (bpm) 10:17:42 87 21 100 0 0 116/84(93) NSR 0 (11) 10(A) , No pain 10:21:56 88 20 100 0 0 123/66(98) NSR 0 (11) 10(A) , No pain 10:26:08 89 18 100 0 0 127/78(98) NSR 0 (11) 10(A) , No pain 10:30:14 86 18 98 0 0 124/89(103) NSR 0 (11) 10(A) , No pain 10:34:24 74 17 98 0 0 121/84(97) NSR 0 (11) 9(A) , No pain 10:38:27 88 16 97 0 0 131/91(115) NSR 0 (11) 9(A) , No pain 10:42:41 82 17 97 0 0 126/82(107) NSR 0 (11) 9(A) , No pain 10:46:51 104 17 96 0 0 125/87(102) NSR 0 (11) 9(A) , No pain 10:51:05 89 17 96 0 0 122/75(96) NSR 0 (11) 9(A) , No pain 10:55:09 90 17 95 0 0 125/84(92) NSR 0 (11) 9(A) , No pain 10:59:17 93 19 95 0 0 121/87(100) NSR 0 (11) 9(A) , No pain 11:03:22 87 17 96 0 0 120/93(105) NSR 0 (11) 9(A) , No pain 11:07:32 63 17 96 0 0 101/75(92) NSR 0 (11) 10(A) , No pain 11:11:32 87 19 97 0 0 121/85(104) NSR 0 (11) 10(A) , No pain Medications Time Medication Route Dose Verified Delivered Reason Notes Effectiveness by by 10:16:17 Oxygen NC 3 l/min Neo Buffie used for Timi Diaz RN procedure 10:16:24 Lidocaine 2% added 20ml vial Neo Neo for local to Timi Capellan MD anesthetic field 10:16:30 Heparin Flush added 2 bags Neo Neo used for Bag to Timi Capellan MD procedure (1000units/500ml field NS) 10:16:39 0.9% NaCl I.V. 50 ml/hr Neo Buffie Per Timi Diaz RN physician 10:26:53 Versed I.V. 0.5 mg Neo Buffie for Timi Diaz RN sedation 10:26:59 Fentanyl I.V. 25 mcg Neo Buffie for Timi Diaz RN sedation 10:30:33 Fentanyl I.V. 25 mcg Neo Buffie for Capellan MD Diaz RN sedation 10:56:30 Adenosine IV I.V. 50 Neo Buffie Per 3mg/ml mcg/kg/min Timi Diaz RN physician 10:58:41 Adenosine IV I.V. 100 Neo Buffie Per 3mg/ml mcg/kg/min Timi Diaz RN physician 11:01:20 Adenosine IV I.V. 150 Neo Buffie Per 3mg/ml mcg/kg/min Timi Diaz RN physician 11:03:40 Adenosine IV I.V. stopped Neo Buffie Per 3mg/ml Timi Diaz RN physician Procedure Log Time Note 9:57:28 Diagnostic Cath status Elective 9:57:31 Andreina Diaz RN sent for patient. Start room use. 9:57:32 Time tracking: Regular hours 9:57:37 Plan of Care:Hemodynamics will remain stable., Cardiac rhythm will remain stable., Comfort level will be maintained., Respiratory function will remain adequate., Patient/ family verbilizes understanding of procedure., Procedure tolerated without complication., Recovers from procedure without complications.. 10:06:12 Patient received from [employer] [facility] to [facility] 1 Alert and oriented. Tansferred to table in Supine position. 10:16:17 Oxygen 3 l/min NC was administered by Andreina Diaz RN; used for procedure; 10:16:24 Lidocaine 2% 20ml vial added to field was administered by Neo Capellan MD; for local anesthetic; 10:16:30 Heparin Flush Bag (1000units/500ml NS) 2 bags added to field was administered by Neo Capellan MD; used for procedure; 10:16:39 0.9% NaCl 50 ml/hr I.V. was administered by Andreina Diaz RN; Per physician; 10:16:43 Vital chart was started 10:17:54 Warm blankets applied, and мария hugger turned on for patient comfort. 10:17:54 Correct patient and procedure confirmed by team. 10:17:56 Signed procedure consent form obtained from patient. 10:17:56 ECG and BP/O2 sat monitors applied to patient. 10:17:57 Baseline sample Acquired. 10:18:04 Rhythm: unchanged. 10:18:06 Full Disclosure recording started 10:18:10 H&P Date Dictated: 05/16/2016 New H&P dictated by physician.. 10:18:11 Pre-procedure instructions explained to patient. 10:18:12 Pre-op teaching completed and patient verbalized understanding. 10:18:20 Family unavailable. 10:18:22 Patient NPO since Midnight. 10:18:29 Is the patient allergic to Iodine/contrast media? No. 10:18:30 Was the patient premedicated? No 10:18:31 Is patient on blood thinner?Yes 10:18:34 ACC The patient was administered the following blood thiners within the last 24 hours: ACCPlavix 10:18:37 Patient diabetic? No. 10:18:40 Previous problem with sedation/anesthesia? No ? 10:18:42 Snore? Unknown 10:18:44 Sleep apnea? Unknown 10:18:46 Deviated septum? Unknown 10:18:48 Opens mouth fully? Yes 10:18:49 Sticks out tongue? Yes 10:18:52 Airway obstruction? Yes pulmonary hypertension 10:18:54 Dentures? Unknown ? 10:18:58 Pre procedure: right dorsailis pedis pulse 1+ Palpable, but thready & weak; easily obliterated 10:19:01 Patient pain scale 0/10 ?. 10:19:07 IV patent on arrival in left forearm with 0.9% NaCl at [facility]. 10:19:11 Lab results completed and on chart. 10:19:39 Lab Result : BUN 37 mg/dl 10:19:39 Lab Result : Hemoglobin 10.8 g/dl 10:19:39 Lab Result : Creatinine 1.3 mg/dl 10:19:46 Right groin area was prepped with chlora-prep and draped in sterile fashion 10:19:47 Alarms reviewed by R. N. 10:19:48 Sharps counted by scrub and verified by R.N. 10:19:49 Physician arrived 10:19:50 --------ALL STOP TIME OUT------ 10:19:50 Final Timeout: patient, procedure, and site verified with staff and physician. All members of the team are in agreement. 10:19:52 Right groin site verified by team. 10:19:55 Physical assessment completed. ASA score P 3 - A patient with severe systemic disease as per Neo Capellan MD. 10:20:01 Sedation plan: IV Moderate Sedation Versed, Fentanyl 10:20:10 Use device set Femoral Dx 10:20:11 Acist Syringe opened to sterile field. 10:20:11 Bag Decanter opened to sterile field. 10:20:12 Medline Cath Pack opened to sterile field. 10:20:14 St Luan 260cm J .035 wire opened to sterile field. 10:20:15 Acist Hand Control opened to sterile field. 10:20:16 Acist Manifold opened to sterile field. 10:20:19 Tegaderm 4 x 4 opened to sterile field. 10:20:39 Terumo 7Fr [place] Sheath opened to sterile field. 10:26:53 Versed 0.5 mg I.V. was administered by Andreina Diaz RN; for sedation; 10::59 Fentanyl 25 mcg I.V. was administered by Andreina Diaz RN; for sedation; 10:29:57 Procedure started. 10:30:33 Fentanyl 25 mcg I.V. was administered by Andreina Diaz RN; for sedation; 10:30:34 Local anesthetic to right femoral artery with Lidocaine 2% by Neo Capellan MD.INITIAL ACCESS ONLY 10:31:42 A 7 Fr Short sheath was inserted into the Right Femoral artery 10:31:46 Baseline sample Acquired. 10:33:22 A [employer] 7Fr [place] Thermodilution ronn was advanced over the wire and used for Pressure Measurement. 10:34:02 [place]-Alli "C" tip catheter inserted 10:35:49 J wire exchanged for .025 wire 10:45:18 Catheter removed. unable to cannulate vessel. 10:45:23 Wire removed. 10:46:09 A [employer] 7Fr [place] Thermodilution ronn was advanced over the wire and used for Pressure Measurement. 10:48:20 Wire removed. 10:48:41 St Luan 150cm J .025 wire opened to sterile field. 10:48:41 St Luan 150cm J .025 wire opened to sterile field. 10:49:13 .025 wire advanced. 10:55:07 Timer 1 started at 10:54 AM, stopped at 10:55 AM, duration 00:00:27 sec. 10:56:30 Adenosine IV 3mg/ml 50 mcg/kg/min I.V. was administered by Andreina Diaz RN; Per physician; 10:56:51 Timer 2 started at 10:55 AM, stopped at 10:56 AM, duration 00:01:14 sec. 10:58:41 Adenosine IV 3mg/ml 100 mcg/kg/min I.V. was administered by Andreina Diaz RN; Per physician; 10:59:20 Timer 1 started at 10:56 AM, stopped at 10:59 AM, duration 00:02:53 sec. 11:01:20 Adenosine IV 3mg/ml 150 mcg/kg/min I.V. was administered by Andreina Diaz RN; Per physician; 11:01:26 Timer 2 started at 10:58 AM, stopped at 11:01 AM, duration 00:02:39 sec. 11:03:35 Timer 1 started at 11:01 AM, stopped at 11:03 AM, duration 00:02:21 sec. 11:03:40 Adenosine IV 3mg/ml stopped I.V. was administered by Andreina Diaz RN; Per physician; 11:06:17 Right heart pressures and cardiac output were obtained. 11:06:19 Oximetry samples were obtained 11:09:31 Cordis 7Fr Exoseal opened to sterile field. 11:10:45 Sats read as follows; PA 42.8, RV 45.7, RA 40.9 11:11:18 Catheter removed. 11:11:29 Sheath removed intact; hemostasis achieved with Exoseal to the Right Femoral artery. 11:11:32 Procedure ended.(Physican Out) 11:11:47 Fluoroscopy time 14.00 minutes. 11:11:53 Fluoroscopy dose: 478 mGy 11:11:53 Flurop Dose total: 478 11:12:08 Contrast amount:Isovue 370 0ml. 11:12:10 Sharps counted by scrub and verified by R.N. 11:12:12 Insertion/operative site no bleeding no hematoma. 11:12:15 Post-op/insertion site Right Femoral artery dressed using a 4 x 4 and Tegaderm. 11:12:19 Post right femoral artery:stable 11:12:21 Post Procedure Pulses reassessed and unchanged 11:12:24 Post procedure rhythm: unchanged. 11:12:27 Estimated blood loss: 5 ml 11:12:48 Post procedure instruction explained to patient.Patient verbalizes understanding. 11:12:49 Patient needs reinforcement of post procedure teaching. 11:13:09 Procedure type changed to Cath procedure, Diagnostic procedure, Right Heart, Right Heart Cath, Miscellaneous Procedures, Moderate Sedation up to 45 minutes 11:13:10 Procedure and supply charges have been captured, reviewed, submitted and are correct. 11:13:15 Procedure Complication : No complications 11:13:23 Vital chart was stopped 11:13:23 See physician's report for complete and final results. 11:13:25 Report given to [facility]. 11:13:28 Patient transfered to [facility] with Stretcher. 11:13:29 Procedure ended. 11:13:29 Full Disclosure recording stopped 11:13:35 End room use (Document Last) 11:14:37 Admit Source: Other 11:14:42 Arrival Date: 05/04/2016 1:11:00 PM 11:14:52 Insurance Payor : Medicare 11:15:01 Patient Weight : 170.4 kg Device Usage Item Name Manufacture Quantity Catalog Hospital Part Current Minima l Lot# / Number Charge Number Stock Stock Serial# Code Acist Syringe Acist 1 09862 540370 [id number] [id number] 20 [employer] Inc Bag Decanter Microtek 1 2002S [id number] 28947 [id number] 5 Medical Inc. Medline Cath Cardinal 1 [id number] 978118 95015 [id number] Luan 260[address] St Luan 1 115344 763904 279767 446679 30 J .035 wire Acist Hand Acist 1 17550 092873 777381 937822 5 Control Medical Systems Inc Acist Manifold Acist 1 33651 279549 835204 500702 5 Medical Systems Inc Tegaderm 4 x 4 3M 1 1626W 466687 850028 875865 5 Terumo 7Fr Terumo 1 [id number] 802441 724112 449965 5 [place] Sheath Mckeon Mckeon 2 [id number] 490940 46243 326134 3 Lifesciences Lifesciences 7Fr [place] Thermodilution ronn St Luan 150cm St Luan 2 600010 650759 962761 004020 2 J .025 wire Cordis 7Fr Cardinal 1 EX700 423771 009906 453446 5 Agora Mobile Signature Audit Howard Stage Time Signature Unsigned Intra-Procedure 05/16/2016 Alicja Doshi 11:16:36 AM RT(R) Signatures Monitor : Alicja Doshi RT Signature : Date : Time : [address] [place] [address]
[~2016-05-04 13:11] MED LIST changes: +COREG 3.1253.125 MG PO; +FERREX 150 PLUS1 CAP PO; +MUCINEX600 MG PO; +PLAVIX75 MG PO; +PREDNISONE10 MG PO; +SINGULAIR10 MG PO
--- NOTE | 2016-05-04 13:30 | NUR ---
ARRIVE TO ROOM VIA PERSONAL WHEELCHAIR FROM DOCTOR SARAH'S OFFICE. ALERT AND OREINTED X4. TRANSFERS TO BED WITH MINIMAL ASSISTANCE. ACCOMPANIED BY . [place]. NO HEARING AIDES. LOWER EXTREMITIES EDEMATOUS BILATERALLY. COMPLAINS OF URINARY RETENTION. HARD STICK. REQUEST VASCULAR NURSE TO OBTAIN MIDLINE ACCESS. CHRONIC SOB STABLE. CONTINUE PLAN OF CARE. TAKES ELIQUIS. NO SCDs. CONTINUE AMISSION PROCESS.
[2016-05-04 13:58] VITALS: BP 109/61; BMI 28.8
[2016-05-04 14:19] LABS: BASOPHILS 0.3 % (0.0-2.0); EOSINOPHILS 1.6 % (0-7); HEMATOCRIT 35.7 % (42.0-54.0); HEMOGLOBIN 10.5 g/dL (13.5-17.5); IMMATURE GRANULOCYTES 0.1 % (0-5); LYMPHOCYTES 13.7 % (15-50); MCHC 29.4 g/dL (31.0-37.0); MCV 78.1 fL (80.0-100.0); MONOCYTES 11.1 % (2-11); NEUTROPHILS 73.2 % (40-80); PLATELET COUNT 217 10x3/uL (130-400); RBC 4.57 10x6/uL (4.20-6.10); RDW 20.1 % (11.5-14.5); WBC 7.5 10x3/uL (4.8-10.8)
[2016-05-04 14:43] LABS: ANION GAP 14.8 mmol/L (8-16); CALCIUM 8.2 mg/dL (8.5-10.1); CARBON DIOXIDE 23.2 mmol/L (21.0-32.0); CREATININE - SERUM 1.3 mg/dL (0.6-1.3)
[2016-05-04 15:09] LABS: BILIRUBIN - TOTAL 0.54 mg/dL (0.2-1.3); PROTEIN - SERUM 6.9 g/dL (6.4-8.2)
[2016-05-04 16:40] VITALS: BP 114/73
--- NOTE | 2016-05-04 17:28 | NUR ---
SITTING ON SOB EATING DINNER. NO CHANGE. CONTINUE PLAN OF CARE AND SAFETY PRECAUTIONS.
--- NOTE | 2016-05-04 20:05 | NUR ---
PT LAYING IN BED READING. ASSESSMENT DONE. PT A/O. [place] BILATERAL. DENIES PAIN. C/O SOB WITH ACTIVITY. LUNG SOUNDS DIMINISHED. PT STATES IT IS HARD FOR HIM TO TAKE A DEEP BREATH AT TIMES. O2 SAT 96% ON RA. NO DISTRESS NOTED. DENIES NEEDS. CALL LIGHT WITH IN REACH. WILL CONT. TO MONITOR.
[2016-05-04 21:02] VITALS: BP 143/87
--- NOTE | 2016-05-04 21:49 | NUR ---
PT SOB WITH REPOSITIONING IN BED. O2 SAT 98% ON RA. NURSE OFFERED O2 VIA NC. PT REFUSES. WILL CONT. TO MONITOR. PT IS A/O. CALL LIGHT WITH INREACH.
[2016-05-05 00:14] VITALS: BP 134/81
--- NOTE | 2016-05-05 00:54 | NUR ---
FIXED INCOME PORTFOLIO MANAGER AT BEDSIDE, NEEDS ADDRESSED AT THIS TIME. CALL LIGHT IN REACH. WILL CONT TO MONITOR.
--- NOTE | 2016-05-05 01:06 | NUR ---
DRESSING TO PT'S MIDLINE IV RE-ENFORCED. PT OOZING BLOOD FROM BOTTOM OF DRESSING. PT TAKING ELIQUIS. PT REFUSED TO HAVE BED LINEN'S CHANGED AT THIS TIME. STATES " IT WILL PROBABLY JUST TO IT AGAIN." NURSE ASKED PT TO CALL WHEN HE GETS UP TO THE BATHROOM, AND STAFF WITH CHANGE LINENS. NO DISTRESS NOTED. PT DENIES NEEDS. CALL LIGHT WITH IN REACH. WILL CONT. TO MONITOR.
--- NOTE | 2016-05-05 01:45 | NUR ---
PT UP AMBULATING AROUND ROOM. STATES HE IS COMING BACK FROM BATHROOM. NO URINAL IN ROOM TO MONITOR OUTPUT. PT GIVEN URINAL AND EDUCATED ON THE NEED TO MONITOR OUTPUT. UNDERSTANDING VERBALIZED.
--- NOTE | 2016-05-05 03:37 | NUR ---
PT SLEEPING. APPEARS COMFORTABLE. RESP SLIGHTLY LABORED. O2 SAT 95% ON RA. DRESSING TO MIDLINE IV LOCATED ON PT'S LEFT UPPER ARM CLEAN, DRY AND INTACT AT THIS TIME. CALL LIGHT AND URINAL WITH INREACH. [facility]
[2016-05-05 05:11] VITALS: BP 114/60
[2016-05-05 05:17] LABS: BASOPHILS 0.3 % (0.0-2.0); HEMATOCRIT 35.5 % (42.0-54.0); HEMOGLOBIN 10.6 g/dL (13.5-17.5); IMMATURE GRANULOCYTES 0.3 % (0-5); LYMPHOCYTES 15.6 % (15-50); MCHC 29.9 g/dL (31.0-37.0); MCV 77.2 fL (80.0-100.0); MONOCYTES 13.7 % (2-11); NEUTROPHILS 67.1 % (40-80); PLATELET COUNT 219 10x3/uL (130-400); RDW 20.1 % (11.5-14.5); WBC 7.3 10x3/uL (4.8-10.8)
--- NOTE | 2016-05-05 05:37 | NUR ---
PT SLEEPING. EYES CLOSED RESP EVEN AND UNLABORED. NO DISTRESS NOTED. CALL LIGHT WITH IN REACH. WILL CONT. TO MONITOR.
[2016-05-05 06:00] LABS: ALBUMIN 2.9 g/dL (3.4-5.0); BILIRUBIN - TOTAL 0.55 mg/dL (0.2-1.3); CALCIUM 8.6 mg/dL (8.5-10.1); CARBON DIOXIDE 20.9 mmol/L (21.0-32.0); CREATININE - SERUM 1.2 mg/dL (0.6-1.3); POTASSIUM - SERUM 3.9 mmol/L (3.5-5.1); PROTEIN - SERUM 6.9 g/dL (6.4-8.2)
--- NOTE | 2016-05-05 07:30 | NUR ---
PT RESTING IN BED WITH EYES CLOSED. AWOKE EASILY TO VERBAL STIMULI. ALERT AND ORIENTED X 3. DENIES ACUTE PAIN OR DISCOMFORT AT THIS TIME. NO SOB NOTED. PT IS VERY [place]. LEFT MIDLINE IV NOTED. REPORTED TO HAVE BLED A LOT DURING THE NIGHT FROM INSERTION SITE. NO BLEEDING NOTED AT THIS TIME. SR'S ARE UP X 2 IN BED. CALL LIGHT AND BEDSIDE TABLE ARE WITHIN EASY REACH.
[2016-05-05 07:56] VITALS: BP 116/63
--- NOTE | 2016-05-05 09:48 | NUR ---
PT RESTING IN BED WITH EYES CLOSED. NO ACUTE DISTRESS NOTED.
--- NOTE | 2016-05-05 09:56 | NUR ---
UP SOB WITH CALL LIGHT IN REACH. NO NEEDS VOICED. WILL MONITOR.
--- NOTE | 2016-05-05 11:24 | NUR ---
Midline dressing changed. Dressing dry and intact. Site without redness or bleeding at present. Estela Willett RN
[2016-05-05 12:03] VITALS: BP 110/68
--- NOTE | 2016-05-05 13:14 | NUR ---
PT UP AMBULATING WITH HIS .
[2016-05-05 13:53] VITALS: Ht 175.3 cm; Wt 82.3 kg
[2016-05-05 15:59] VITALS: BP 134/75
--- NOTE | 2016-05-05 16:34 | NUR ---
PT IS RESTING IN BED AWAITING SUPPER TIME. DENIES NEEDS. NO ACUTE DISTRESS NOTED.
--- NOTE | 2016-05-05 19:50 | NUR ---
PT OUT OF ROOM.
--- NOTE | 2016-05-05 20:20 | NUR ---
SPOKE WITH PTS , SHE INFORMED ME THAT THEY ARE BACK IN THE ROOM. STATES THAT SHE FOUND 2 LARGE WHITE PILLS IN PTS BED, LOOKED AT PILLS AND PLACED THEM IN THE SHARPS CONTAINER, TOLD THAT I AM NOT SURE WHAT THEY ARE AND THAT I WILL BE BRINGING HIS NIGHT MEDS HERE IN JUST A BIT. ASKED IF I WOULD BRING A NORCO WITH NIGHT MEDS INFORMED HER THAT I WILL.
--- NOTE | 2016-05-05 20:51 | NUR ---
HS MEDS GIVEN WITH FRESH ICE WATER, NORCO 1 TAB GIVEN FOR C/O PAIN, RATES PAIN AT A 7 ON PAIN SCALE. BS 159, COVERED PER S/S. NO OTHER NEEDS AT THIS TIME, BED LOW, CL IN REACH, WILL CONT TO MONITOR.
[2016-05-05 22:26] VITALS: BP 134/75
[2016-05-06 01:25] VITALS: BP 131/76
--- NOTE | 2016-05-06 02:00 | NUR ---
RESTING WITH EYES CLOSED, RESPERATIONS EVEN, NO S/S DISTRESS NOTED.
[2016-05-06 05:44] LABS: BASOPHILS 0.5 % (0.0-2.0); EOSINOPHILS 4.7 % (0-7); HEMOGLOBIN 10.1 g/dL (13.5-17.5); IMMATURE GRANULOCYTES 0.3 % (0-5); LYMPHOCYTES 17.5 % (15-50); MCH 22.9 pg (26.0-34.0); MCHC 29.7 g/dL (31.0-37.0); MCV 76.9 fL (80.0-100.0); MEAN PLATELET VOLUME 10.9 fL (7.4-10.4); MONOCYTES 14.4 % (2-11); NEUTROPHILS 62.6 % (40-80); PLATELET COUNT 212 10x3/uL (130-400); RBC 4.42 10x6/uL (4.20-6.10); RDW 19.8 % (11.5-14.5); WBC 7.4 10x3/uL (4.8-10.8)
[2016-05-06 05:45] VITALS: BP 123/81
[2016-05-06 06:22] LABS: ALBUMIN 2.7 g/dL (3.4-5.0); ANION GAP 13.7 mmol/L (8-16); BILIRUBIN - TOTAL 0.5 mg/dL (0.2-1.3); CALCIUM 8.4 mg/dL (8.5-10.1); CREATININE - SERUM 1.2 mg/dL (0.6-1.3); MAGNESIUM - SERUM 1.9 mg/dL (1.8-2.4); PHOSPHOROUS 3.7 mg/dL (2.5-4.9); POTASSIUM - SERUM 3.7 mmol/L (3.5-5.1); PROTEIN - SERUM 6.5 g/dL (6.4-8.2)
[2016-05-06 08:00] VITALS: BP 113/58
[2016-05-06 12:00] VITALS: BP 117/65
--- NOTE | 2016-05-06 14:40 | NUR ---
ALERT AND ORIENTED X4. RESTING IN BED. DENIES PAIN. OXYGEN THERAPY FOR SOB AND IV ANTIBIOTICS. INITIATE LINEN CHANGE AND BATHING. NO CHANGE. CONTINUE PLAN OF CARE AND SAFETY PRECAUTIONS.
--- NOTE | 2016-05-06 17:02 | NUR ---
Patient Name: YINKA SANDHU Admission Status: Elective Accout number: [id number] Admission Date: 05-04-2016 : 1945 Admission Diagnosis:UNSPECIFIED DIASTOLIC (CONGESTIVE) HEART FAILURE Attending: HÉCTOR Current LOS: 2 Anticipated DC Date: Planned Disposition: Home Primary Insurance: MEDICARE A & B Discharge Planning Comments: * Is the patient Alert and Oriented? Yes 0 * How many steps to enter\exit or inside your home? NONE 0 * PCP DR. SMITH 0 * Pharmacy [facility] 0 * Preadmission Environment Home with Family 0 * ADLs Independent 0 * Equipment Other Wheelchair 0 * Other Equipment INR MACHINE (NOT USING NOW) NO MEDICAL EQUIPMENT PROVIDER PREFERENCE 0 * List name and contact numbers for known caregivers / representatives who currently or will assist patient after discharge: EDUARDO SANDHU, SPOUSE, 0 * Community resources currently utilized None 0 * Please name any agencies selected above. NONE 0 * Additional services required to return to the preadmission environment? No 0 * Can the patient safely return to the preadmission environment? Yes 0 * Has this patient been hospitalized within the prior 30 days at any hospital? No 0 CM MET WITH PT IN ROOM TO DISCUSS DISCHARGE PLANNING AND NEEDS. PT REPORTS LIVING AT HOME INDEPENDENTLY WITH SPOUSE. PT HAS WHEELCHAIR AND INR MACHINE WITH NO MEDICAL EQUIPMENT PROVIDER PREFERENCE. PT HAS NO OUTSIDE SERVICES ASSISTING IN THE HOME. CM DISCUSSED AVAILABILITY OF HOME HEALTH, REHAB SERVICES AND MEDICAL EQUIPMENT. PT DENIES DISCHARGE NEEDS, REPORTS HIS SPOUSE WILL PICK HIM UP FOR DISCHARGE HOME. County Sheriff: [place] Horton
[2016-05-06 20:00] VITALS: BP 126/90
--- NOTE | 2016-05-06 23:16 | NUR ---
RESTING WITH EYES CLOSED, RESPERTIONS EVEN, NO S/S DISTRESS NOTED.
[2016-05-07] VITALS: BP 115/79
--- NOTE | 2016-05-07 00:36 | NUR ---
ACCOUNTING FILE CLERK AT BEDSIDE TO OBTAIN VITALS, CALL LIGHT IN REACH. WILL CONTINUE WITH PLAN OF CARE.
--- NOTE | 2016-05-07 03:41 | NUR ---
IN BED WITH EYES CLOSED, RESPERATIONS EVEN AT 20, BED LOW, CL IN REACH.
[2016-05-07 04:00] VITALS: BP 122/71
[2016-05-07 05:58] LABS: BASOPHILS 0.4 % (0.0-2.0); EOSINOPHILS 4.8 % (0-7); HEMATOCRIT 34.9 % (42.0-54.0); HEMOGLOBIN 10.4 g/dL (13.5-17.5); IMMATURE GRANULOCYTES 0.3 % (0-5); LYMPHOCYTES 15.4 % (15-50); MCH 23.1 pg (26.0-34.0); MCHC 29.8 g/dL (31.0-37.0); MCV 77.4 fL (80.0-100.0); MONOCYTES 12.6 % (2-11); NEUTROPHILS 66.5 % (40-80); PLATELET COUNT 217 10x3/uL (130-400); RBC 4.51 10x6/uL (4.20-6.10); RDW 20.1 % (11.5-14.5); WBC 7.1 10x3/uL (4.8-10.8)
[2016-05-07 06:21] LABS: ALBUMIN 2.8 g/dL (3.4-5.0); ANION GAP 12.3 mmol/L (8-16); BILIRUBIN - TOTAL 0.6 mg/dL (0.2-1.3); CALCIUM 8.7 mg/dL (8.5-10.1); CARBON DIOXIDE 27.2 mmol/L (21.0-32.0); CREATININE - SERUM 1.3 mg/dL (0.6-1.3); POTASSIUM - SERUM 3.5 mmol/L (3.5-5.1); PROTEIN - SERUM 6.9 g/dL (6.4-8.2)
--- NOTE | 2016-05-07 07:22 | NUR ---
PT SITTING UP IN BED DENIES NEEDS AT THIS TIME WILL CONT TO MONITOR
[2016-05-07 07:49] LABS: MAGNESIUM - SERUM 1.6 mg/dL (1.8-2.4); PHOSPHOROUS 3.8 mg/dL (2.5-4.9)
[2016-05-07 07:56] VITALS: BP 118/64
[2016-05-07 11:38] VITALS: BP 117/72
[2016-05-07 14:08] LABS: APPEARANCE CLEAR (CLEAR); BILIRUBIN NEGATIVE (NEGATIVE); COLOR YELLOW (YELLOW); GLUCOSE NEGATIVE (NEGATIVE); KETONE NEGATIVE (NEGATIVE); LEUKOCYTE ESTERASE TRACE (NEGATIVE); NITRITE NEGATIVE (NEGATIVE); PROTEIN 1+ mg/dL (NEGATIVE); SPECIFIC GRAVITY 1.025 (1.005-1.020)
[2016-05-07 14:09] LABS: BACTERIA MODERATE /hpf (NONE SEEN); EPITHELIAL CELLS 0-5 /hpf (0-5); HYALINE CAST 0-5 /lpf (NONE SEEN); MUCUS <1+ /lpf (NONE SEEN); RED CELLS - URINE NONE SEEN /hpf (0-5); SPERMATOZOA NONE SEEN /hpf (NONE SEEN); WHITE CELLS - URINE OCC /hpf (0-5); YEAST NONE SEEN /hpf (NONE SEEN)
--- NOTE | 2016-05-07 14:09 | NUR ---
CAME OUT OF A PATIENTS ROOM AND SCHOOL AGE LEAD TEACHER BROUGHT PT URINE SPECIMEN TO ME AND SAID PT REQUESTED PAIN PILL. I STARTED TO PRINT OUT LAB LABEL FORM TO TAKE URINE TO LAB. DR SWEET HAS REQUESTED URINE BE COLLECTED HUEY. I WAS PRINTING LAB LABELS PT CAME UP TO COUNTER AND DEMANDED HER HAVE A PAIN PILL "NOW." I TOLD HER THAT YES SOMEONE JUST CAME AND TOLD ME I AM PRINTING SLIPS FOR HIS SPECIMEN AND TAKING IT TO LAB AND THEN I WILL BE IN THERE. TOOK URINE TO LAB. WITHIN 5 MINUTES I WAS IN PATIENT ROOM TO GIVE PT PAIN PILL. PT STARTS TO YELL AT ME. SHE SAYS "WHEN I TELL YOU TO BRING MY A PAIN PILL I MEAN NOW! NOT AFTER YOU TAKE A URINE TEST TO THE LAB!". I TOLD PT THAT THE URINE IS TIME SENSITVE THAT THE DR HAS REQUESTED IT BE DONE HUEY AND THAT URINE CAN NOT SIT OUT FOR A LONG PERIOD OF TIME OR IT WILL SHOW A FALSE INFECTION. PT SAID " WELL THAT URINE HAS BEEN SITTING OUT HERE FOR 3 HOURS ANYWAYS! AND NO ONE HAS BEEN IN HERE TO HELP HIM GO TO THE BATHROOM TO COLLECT THE URINE!" I TOLD HER THAT I GAVE THE PT INSTRUCTIONS AND CLEAN CATCH CUP THIS AM AND INSTRUCTED HIM ON HOW TO DO CLEAN CATCH PT VERBALIZES UNDERSTANDING. PT IS CONFUSED AT TIMES. I CONTINUED TO GO IN PT ROOM EVERY HOUR AND A HALF-2 HOURS TO ASK PT IF HE NEEDED TO VOID ETC. PT EACH TIME REPLIED NO. AND I THANKED HER FOR COLLECTING THE URINE FOR STAFF. AND THAT THE URINE HASNT BEEN SITTING THERE FOR 3 HOURS BECAUSE I WAS JUST IN THERE AN HOUR AGO BEFORE I GOT CAUGHT UP WITH ANOTHER PT TO CHECK ON HIM AND NO FAMILY WAS IN HERE ETC, NOR HAS ANYONE BEEN HERE AT ALL TODAY. AND THAT WHEN I WAS IN HERE 1 HOUR AGO THE URINE CUP WAS STILL EMPTY. SHE REPLIED WITH "THAT IS NOT TRUE! THAT DAMN CUP HAS BEEN SITTING THERE SINCE I GOT HERE 3 HOURS AGO AND NO ONE HAS COLLECTED IT!!" I TOLD PT THAT I WAS NOT GOING TO ARGUE WITH HER AND THAT I WOULD GET MY JEWEL OLIVING MACHINE OPERATOR. I GAVE PT PAIN PILL AND I TRIED TO START ORDERED ANTIBIOTIC IVPB AND PT SAID "NO, WE ARE GOING OUTSIDE!" PT PUT PT IN WHEELCHAIR AND WHEELED HIM OFF THE FLOOR. ALERTED DAPHNE NURSE JEWEL OLIVING MACHINE OPERATOR OF SITUATION AND SHE SAID SHE WOULD TALK TO PT . DAPHNE ALSO SAID THAT PT TALKED WITH HER ON HER ARRIVAL WHICH WAS ABOUT 30 MINS AGO.
[2016-05-07 15:30] VITALS: BP 109/69
--- NOTE | 2016-05-07 19:13 | NUR ---
PT SITTING UP IN BED DENIES NEEDS GIVEN REPORTT TO COLLEGE SCOUTING COORDINATOR NURSE MARIA ISABEL
[2016-05-07 20:00] VITALS: BP 108/60
[2016-05-08] VITALS: BP 143/66
[2016-05-08 04:00] VITALS: BP 130/80
[2016-05-08 07:04] LABS: ANION GAP 15.9 mmol/L (8-16); BASOPHILS 0.4 % (0.0-2.0); BILIRUBIN - TOTAL 0.5 mg/dL (0.2-1.3); CALCIUM 8.7 mg/dL (8.5-10.1); CARBON DIOXIDE 23.8 mmol/L (21.0-32.0); CREATININE - SERUM 1.3 mg/dL (0.6-1.3); EOSINOPHILS 3.6 % (0-7); HEMATOCRIT 35.7 % (42.0-54.0); HEMOGLOBIN 10.7 g/dL (13.5-17.5); IMMATURE GRANULOCYTES 0.3 % (0-5); MAGNESIUM - SERUM 1.8 mg/dL (1.8-2.4); MCH 23.1 pg (26.0-34.0); MCV 76.9 fL (80.0-100.0); NEUTROPHILS 68.7 % (40-80); PHOSPHOROUS 3.4 mg/dL (2.5-4.9); PLATELET COUNT 188 10x3/uL (130-400); POTASSIUM - SERUM 3.7 mmol/L (3.5-5.1); PROTEIN - SERUM 6.9 g/dL (6.4-8.2); RBC 4.64 10x6/uL (4.20-6.10); RDW 19.8 % (11.5-14.5); WBC 7.7 10x3/uL (4.8-10.8)
--- NOTE | 2016-05-08 07:22 | NUR ---
PT SITTING UP IN BED DENIES NEEDS WILL CONT TO MONITOR.
[2016-05-08 12:00] VITALS: BP 120/81
[2016-05-08 16:00] VITALS: BP 135/82
[2016-05-08 20:21] VITALS: BP 126/78
[2016-05-09 00:31] VITALS: BP 118/76
[2016-05-09 04:03] VITALS: BP 120/78
[2016-05-09 06:47] LABS: BASOPHILS 0.3 % (0.0-2.0); EOSINOPHILS 4.4 % (0-7); HEMATOCRIT 36.3 % (42.0-54.0); HEMOGLOBIN 10.8 g/dL (13.5-17.5); IMMATURE GRANULOCYTES 0.2 % (0-5); LYMPHOCYTES 14.9 % (15-50); MCH 23.1 pg (26.0-34.0); MCHC 29.8 g/dL (31.0-37.0); MCV 77.6 fL (80.0-100.0); NEUTROPHILS 66.2 % (40-80); PLATELET COUNT 217 10x3/uL (130-400); RBC 4.68 10x6/uL (4.20-6.10); RDW 19.8 % (11.5-14.5); WBC 6.6 10x3/uL (4.8-10.8)
[2016-05-09 06:59] LABS: ALBUMIN 2.9 g/dL (3.4-5.0); ANION GAP 12.3 mmol/L (8-16); BILIRUBIN - TOTAL 0.45 mg/dL (0.2-1.3); CALCIUM 8.5 mg/dL (8.5-10.1); CARBON DIOXIDE 24.1 mmol/L (21.0-32.0); CREATININE - SERUM 1.3 mg/dL (0.6-1.3); POTASSIUM - SERUM 3.4 mmol/L (3.5-5.1); PROTEIN - SERUM 7.2 g/dL (6.4-8.2)
[2016-05-09 08:00] VITALS: BP 114/75
--- NOTE | 2016-05-09 08:15 | NUR ---
PT IS ALERT. ASSESSMENT DONE PER FLOWSHEET. NO OTHER NEEDS AT THIS TIME. WILL CONTINUE TO MONITOR.
[2016-05-09 12:00] VITALS: BP 130/58
--- NOTE | 2016-05-09 13:18 | NUR ---
PTIS ALERT. NO SS OF IDSTRESS AT THIS ITME. WILL CONTINUE TO MONITOR.
--- NOTE | 2016-05-09 13:18 | NUR ---
PT IS ALERT. NO SS OF DISTRESS AT THIS ITME. WILL CONTINUE TO MONITOR.
[2016-05-09 16:00] VITALS: BP 126/96
--- NOTE | 2016-05-09 20:13 | NUR ---
RESTING IN BED, WATCHING TV. ALERT. SOME INTERMITENT CONFUSION TO PLACE/TIME/SITUATION. DENIES PAIN OR DISCOMFORT. JOHNNIE MIDLINE IV SALINE LOCKED. NONLABORED RESPIRATIONS ON ROOM AIR. WILL NOT KEEP TELEMTRY ON, SO IT WAS DISCONTINUED. SEE ASSESSMENT.
[2016-05-09 20:38] VITALS: BP 139/82
--- NOTE | 2016-05-09 22:48 | NUR ---
PT PREVIOUSLY WAS UP WALKING IN THE HALLWAY, REDIRECTED BACK TO HIS ROOM AND SET THE ALARM ON HIS BED. HS MEDS GIVEN. FSBS 150, NO ACTION REQUIRED.
[2016-05-10 00:11] VITALS: BP 135/96
[2016-05-10 04:40] VITALS: BP 132/87
--- NOTE | 2016-05-10 07:48 | NUR ---
PT IS ALERT. ASSESMENT DONE PER FLOWSHEET. NO OTHER NEEDS AT THIS TIME. WILL CONTINUE TO MONITOR.
[2016-05-10 08:00] VITALS: BP 122/61
[2016-05-10 12:00] VITALS: BP 136/83
[2016-05-10 16:00] VITALS: BP 132/70
--- NOTE | 2016-05-10 18:00 | NUR ---
NO SS OF DISTRESS AT THIS TIME WILL CONTINU TO MONITOR.
--- NOTE | 2016-05-10 19:45 | NUR ---
RESUMED CARE OF PT, LYING IN BED RESPIRATIONS EVEN AND UNLABORED ON ROOM AIR. CALL LIGHT IN REACH. NO NEEDS NOTED AT THIS TIME. WILL CONTINUE TO MONITOR. SEE NURSE ASSESSMENT.
[2016-05-10 20:00] VITALS: BP 136/72
--- NOTE | 2016-05-11 00:25 | NUR ---
16 LITHUANIAN MACEDO CATHETER INSERTED, 350 YELLOW URINE EMPTIED. URINE SAMPLE OBTAINED. CALL LIGHT IN REACH. WITH BED ALARM ON.
[2016-05-11 00:44] LABS: CREATININE - URINE 119.6 mg/dL (30-125); PROTEIN - URINE 39.6 mg/dL (0.0-11.9)
[2016-05-11 00:47] LABS: APPEARANCE CLEAR (CLEAR); BILIRUBIN NEGATIVE (NEGATIVE); COLOR YELLOW (YELLOW); GLUCOSE NEGATIVE (NEGATIVE); KETONE NEGATIVE (NEGATIVE); LEUKOCYTE ESTERASE TRACE (NEGATIVE); NITRITE NEGATIVE (NEGATIVE); PROTEIN TRACE mg/dL (NEGATIVE); UROBILINOGEN NORMAL (NORMAL)
[2016-05-11 00:53] LABS: AMORPHOUS SEDIMENT >1+ /lpf (NONE SEEN); BACTERIA MODERATE /hpf (NONE SEEN); EPITHELIAL CELLS 0-5 /hpf (0-5); GRANULAR CAST 0-5 /lpf (NONE SEEN); HYALINE CAST 0-5 /lpf (NONE SEEN); RED CELLS - URINE 0-5 /hpf (0-5); WHITE CELLS - URINE 0-5 /hpf (0-5)
[2016-05-11 01:55] VITALS: BP 120/64
[2016-05-11 06:38] VITALS: BP 117/61
--- NOTE | 2016-05-11 08:25 | NUR ---
SITTING UP EATING BREAKFAST. BED ALARM ON.
[2016-05-11 08:32] VITALS: BP 150/72
[2016-05-11 12:35] VITALS: BP 128/81
[2016-05-11 12:50] LABS: ANION GAP 18.6 mmol/L (8-16); CALCIUM 8.9 mg/dL (8.5-10.1); CARBON DIOXIDE 20.7 mmol/L (21.0-32.0); CREATININE - SERUM 1.3 mg/dL (0.6-1.3); POTASSIUM - SERUM 4.3 mmol/L (3.5-5.1)
[2016-05-11 12:52] LABS: BASOPHILS 0.2 % (0.0-2.0); EOSINOPHILS 0.4 % (0-7); HEMATOCRIT 36.2 % (42.0-54.0); HEMOGLOBIN 10.9 g/dL (13.5-17.5); IMMATURE GRANULOCYTES 0.1 % (0-5); LYMPHOCYTES 8.2 % (15-50); MCH 22.9 pg (26.0-34.0); MCHC 30.1 g/dL (31.0-37.0); MCV 76.2 fL (80.0-100.0); NEUTROPHILS 76.1 % (40-80); PLATELET COUNT 220 10x3/uL (130-400); RBC 4.75 10x6/uL (4.20-6.10); RDW 19.4 % (11.5-14.5); WBC 8.6 10x3/uL (4.8-10.8)
[2016-05-11 15:55] VITALS: BP 122/84
--- NOTE | 2016-05-11 18:09 | NUR ---
LYING QUIETLY WITH HOB UP. NO DISTRESS NOTED. WILL MONITOR
--- NOTE | 2016-05-11 19:30 | NUR ---
ASSESSMENT COMPLETE, DENIES NEEDS UPON AROUSAL.CONFUSED, UNABLE TO REORIENT AT THIS TIME. HOB UP SR UP X2, C/L IN REACH. CONTINUE TO MONITOR.
[2016-05-11 21:37] VITALS: BP 117/80
--- NOTE | 2016-05-11 21:50 | NUR ---
FSBS "102" NO COVERAGE PER S/S ORDERS AT THIS NOW. MEDS GIVEN W/O DIFF. O2 @ 2L NC IN PLAVE,LEFT ARM MIDLINE CDI. C/L IN REACH, BED ALARM ON AND ATTACHED FOR SAFETY. HOB UP SR UP X2, CONTINUE TO MONITOR.
[2016-05-12 05:39] LABS: BASOPHILS 0.4 % (0.0-2.0); EOSINOPHILS 2.1 % (0-7); HEMOGLOBIN 10.8 g/dL (13.5-17.5); IMMATURE GRANULOCYTES 0.1 % (0-5); LYMPHOCYTES 13.2 % (15-50); MCH 23.5 pg (26.0-34.0); MCHC 30.9 g/dL (31.0-37.0); MCV 76.1 fL (80.0-100.0); NEUTROPHILS 70.2 % (40-80); PLATELET COUNT 234 10x3/uL (130-400); RDW 19.5 % (11.5-14.5); WBC 7.5 10x3/uL (4.8-10.8)
[2016-05-12 05:54] VITALS: BP 128/80
[2016-05-12 06:00] LABS: ANION GAP 17.8 mmol/L (8-16); CALCIUM 8.8 mg/dL (8.5-10.1); CARBON DIOXIDE 21.9 mmol/L (21.0-32.0); CREATININE - SERUM 1.3 mg/dL (0.6-1.3); POTASSIUM - SERUM 3.7 mmol/L (3.5-5.1)
[2016-05-12 06:02] VITALS: BP 150/78
--- NOTE | 2016-05-12 07:20 | NUR ---
PT SITTING UP IN BED SLEEPING NO S/S DISTRESS NOTED WILL CONT TO MONITOR.
[2016-05-12 07:30] LABS: MAGNESIUM - SERUM 1.9 mg/dL (1.8-2.4); PHOSPHOROUS 3.8 mg/dL (2.5-4.9)
[2016-05-12 08:00] VITALS: BP 108/78
--- NOTE | 2016-05-12 10:09 | NUR ---
PT REQUESTED FOR PT TO HAVE PAIN PILL. PULLED PAIN PILL AND WENT TO ADMINISTER TO PT. WHEN I ASKED PT IF HE WAS IN PAIN AND IF HE NEEDED PAIN PILL HE SAID "NO". RETURNED PAIN PILL TO ALLY
[2016-05-12 12:00] VITALS: BP 132/79
[2016-05-12 13:27] LABS: CREATININE - URINE 46.2 mg/dL (30-125)
[2016-05-12 13:33] LABS: CREATININE - SERUM 1.3 mg/dL (0.6-1.3)
[2016-05-12 13:39] LABS: CREATININE - URINE 45.8 mg/dL (30-125); PROTEIN - URINE 33.6 mg/dL (0.0-11.9)
--- NOTE | 2016-05-12 13:57 | NUR ---
Nutrition follow-up: Diet: Regular PO intake ~60% average of meals Labs reviewed Edema is improving Wt: 193# Will continue to provide food choices and honor food preferences. Following.
--- NOTE | 2016-05-12 14:58 | NUR ---
REMOVED MIDLINE DRESSING (DIRTY AND SATURATED). REPLACED DRESSING STERILE TECHNIQUE INITIATED. BIO PATCH PLACED AND SIGNED AND DATED
[2016-05-12 16:00] VITALS: BP 130/76
--- NOTE | 2016-05-12 18:27 | NUR ---
PT SITTING UP IN BED WATCHING TV DENIES NEEDS WILL CONT TO MONITOR.
[2016-05-12 20:00] VITALS: BP 129/75
--- NOTE | 2016-05-12 20:07 | NUR ---
RESTING IN BED. ALERT BUT DISORIENTED TO TIME/PLACE/SITUATION. BED ALARM IN PLACE. MACEDO PATENT TO BEDSIDE DRAIN BAG. MIDLINE IV SALINE LOCKED TO JOHNNIE. PT'S DINNER TRY UNTOUCHED AT BEDSIDE. OFFERED TO HEAT IT UP FOR HIM TO EAT AND HE SAID HE WAS NOT HUNGRY. THEN HE SAID MAYBE LATER. WILL LEAVE TRAY FOR NOW PT IS SO DISORIENTED. SEE ASSESSMENT. CPOC.
[2016-05-13] VITALS: BP 121/79
[2016-05-13 04:00] VITALS: BP 128/81
--- NOTE | 2016-05-13 04:18 | NUR ---
SUMMARY: PT HAS BEEN VERY CONFUSED, CLOSE SUPERVISION BY STAFF. KEEPING BED ALARM ACTIVATED, AND FREQUENTLY GOING TO ROOM WHEN PT GETTING UP AND WANDERING IN ROOM. HE WILL HOLD HIS CATHETER IN HIS HAND, BE HALF DRESSED AND LOOKING FOR THE BATHROOM. FALL PRECAUTIONS ARE IN PLACE. KEEPING ROOM TO PT'S DOOR OPEN TO BE ABLE TO SEE HIM AND HEAR ALARM SOON IT GOES OFF.
[2016-05-13 05:56] LABS: BASOPHILS 0.4 % (0.0-2.0); EOSINOPHILS 3.7 % (0-7); HEMATOCRIT 34.5 % (42.0-54.0); HEMOGLOBIN 10.4 g/dL (13.5-17.5); IMMATURE GRANULOCYTES 0.1 % (0-5); LYMPHOCYTES 12.5 % (15-50); MCH 22.8 pg (26.0-34.0); MCHC 30.1 g/dL (31.0-37.0); MCV 75.5 fL (80.0-100.0); MONOCYTES 14.7 % (2-11); NEUTROPHILS 68.6 % (40-80); PLATELET COUNT 218 10x3/uL (130-400); RBC 4.57 10x6/uL (4.20-6.10); RDW 19.3 % (11.5-14.5); WBC 7.3 10x3/uL (4.8-10.8)
[2016-05-13 06:09] LABS: ANION GAP 12.9 mmol/L (8-16); CALCIUM 8.7 mg/dL (8.5-10.1); CARBON DIOXIDE 26.3 mmol/L (21.0-32.0); CREATININE - SERUM 1.4 mg/dL (0.6-1.3); MAGNESIUM - SERUM 1.9 mg/dL (1.8-2.4); PHOSPHOROUS 3.9 mg/dL (2.5-4.9); POTASSIUM - SERUM 3.2 mmol/L (3.5-5.1)
[2016-05-13 08:00] VITALS: BP 98/64
[2016-05-13 12:00] VITALS: BP 135/71
[2016-05-13 16:09] VITALS: BP 129/76
[2016-05-13 20:00] VITALS: BP 116/74
[2016-05-14] VITALS: BP 120/52
[2016-05-14 04:00] VITALS: BP 117/75
[2016-05-14 06:54] LABS: BASOPHILS 0.3 % (0.0-2.0); EOSINOPHILS 4.5 % (0-7); HEMATOCRIT 36.9 % (42.0-54.0); HEMOGLOBIN 11.1 g/dL (13.5-17.5); IMMATURE GRANULOCYTES 0.1 % (0-5); LYMPHOCYTES 14.8 % (15-50); MCHC 30.1 g/dL (31.0-37.0); MCV 76.4 fL (80.0-100.0); MONOCYTES 11.6 % (2-11); NEUTROPHILS 68.7 % (40-80); PLATELET COUNT 213 10x3/uL (130-400); RBC 4.83 10x6/uL (4.20-6.10); RDW 19.4 % (11.5-14.5); WBC 7.6 10x3/uL (4.8-10.8)
[2016-05-14 07:09] LABS: CARBON DIOXIDE 26.7 mmol/L (21.0-32.0); CREATININE - SERUM 1.4 mg/dL (0.6-1.3)
[2016-05-14 07:11] LABS: POTASSIUM - SERUM 3.7 mmol/L (3.5-5.1)
--- NOTE | 2016-05-14 07:39 | NUR ---
PATIENT IS AWAKE AND ALERT, SITTING UP ON THE BEDSIDE WITH TABLE BEFORE HIM. FRESH WATER AND GLUCOPHAGE GIVEN. HE INFORMS ME OF HOW HIS CATHETER TUBING IS RUNNING UP THE PAJAMA PANT LEG AND INTO HIS PENIS. IT IS PATENT WITH CLOUDY YELLOW URINE TO THE UROMETER. HIS LEFT ARM IV ACCESS IS COVERED WITH A STERILE DRESSING DATED 05/12. HE STATES THAT IT IS LOOKING BETTER THAN IT HAD. HE DENIES NEEDS, APPEARS SLIGHTLY UNCOMFORTABLE AND CONFUSED WHEN I ASK ABOUT HIS NEEDS. AEB HIS RUBBING PALMS ON THIGHS AND LOOKING AROUND ROOM. EXPLAINED THE CALL LIGHT TO HIM AND PLACED WITHIN HIS REACH. DOOR LEFT AJAR. MONITORING. HR IRREG. LUNGS CLEAR. HE STATES THAT IT HAS BEEN A COPUPLE OF DAYS SINCE A BM.
--- NOTE | 2016-05-14 08:23 | NUR ---
ENCOURAGED TO EAT HIS BREAKFAST
[2016-05-14 09:09] VITALS: BP 127/74
--- NOTE | 2016-05-14 10:12 | NUR ---
PATIENT TOOK HIS MORNING MEDICATIONS AFTER EDUCATING HIM ABOUT WHAT EACH WAS FOR. HE WAS HESITANT TO TAKE THEM AND ASKED ME TO CONFIRM THAT THEY WOULDN'T HURT HIM. WHEN I LEFT, HE WAS BACK IN BED, RESTING WITH HOB UP IN SEMI FOWLERS, READING THE NEWSPAPER.
--- NOTE | 2016-05-14 11:45 | NUR ---
PATIENT GIVEN A NORCO FOR C/O LEG PAIN THAT HE STATES IS "MORE THAN INTERMEDIATE" ON THE SCALE OF 1-10. HE IS UP IN A WHEELCHAIR, HIS IS TO ACCOMPANY HE AND A TODDLER TO THE FRONT DOOR TO SEE THE FOUNTAIN AND GET SOME FRESH AIR, PER HER STATEMENT.
[2016-05-14 12:29] VITALS: BP 130/67
--- NOTE | 2016-05-14 12:39 | NUR ---
PATIENT BACK TO HIS ROOM, SITTING UP ON THE BEDSIDE WITH HIS LUNCH ON THE BEDSIDE TABLE. ASSISTED HIM WITH SET UP AND JUST LEFT TO GO HOME. SHE REQUESTS A PHONE CALL IF ANY POC CHANGE.
--- NOTE | 2016-05-14 13:44 | NUR ---
Nutrition Follow Up: Chart reviewed. Pt is eating 79% meal avg on a regular diet. Wt gain of 3# since admit. I<O. +BM 05/13/16. Labs noted. Meds noted including Lasix, Humalog, Metformin. Pt with improved po intake. Rec continue current diet. RD following.
--- NOTE | 2016-05-14 14:00 | NUR ---
PATIENT IS UP AD NATAN AROUND HIS ROOM. DENIES NEEDS. APPEARS CALM
[2016-05-14 16:40] VITALS: BP 122/69
--- NOTE | 2016-05-14 16:45 | NUR ---
PATIENT TOOK ORAL MEDICATIONS, REQUIRING MUCH ENCOURAGEMENT. HE IS CONFUSED, AEB HIM STATING THAT HE TRIED TO DISPOSE OF THEM EARLIER TO DAY. WHEN I MOTIONED FOR HIM TO TAKE THEM HE ASKED IF HE SHOULD EAT THEM BUT DID SWALLOW THEM WHOLE WITH HIS DIET SODA.
--- NOTE | 2016-05-14 17:53 | NUR ---
PATEINT UP AD NATAN AROUND HIS ROOM.
--- NOTE | 2016-05-14 19:15 | NUR ---
RECIEVED PT LYING BED AWAKE, MACEDO DRAINING TO GRAVITY, ASSESSMENT COMPLETED, NO ACUTE DISTRESS NOTED, DENIES PAIN OR NEEDS AT THIS TIME, FALL PRECAUTIONS IN PLACE, BED ALARM ON, CL IN REACH, WILL MONITOR
[2016-05-14 20:00] VITALS: BP 144/83
--- NOTE | 2016-05-14 21:00 | NUR ---
MEDS GIVEN PER MAR, MADI WELL, NO DISTRESS NOTED, SAFETY PRECAUTIONS IN PLACE, CL IN REACH
--- NOTE | 2016-05-14 23:07 | NUR ---
RESTING WITH EYES CLOSED, RESP WITH EASE, NO DISTRESS NOTED, SAFETY MEASURES IN PLACE, WILL CONTINUE TO MONITOR
--- NOTE | 2016-05-15 01:17 | NUR ---
CONTINUES TO REST WITH EYES CLOSED, NO DISTRESS NOTED, SAFETY PRECAUTIONS IN PLACE, CL IN REACH
--- NOTE | 2016-05-15 03:30 | NUR ---
NO CHANGES SINCE LAST ROUND, SAFETY MEASURES IN PLACE, CL IN REACH
[2016-05-15 04:00] VITALS: BP 138/85
[2016-05-15 06:25] LABS: BASOPHILS 0.1 % (0.0-2.0); EOSINOPHILS 1.7 % (0-7); HEMATOCRIT 34.3 % (42.0-54.0); HEMOGLOBIN 10.3 g/dL (13.5-17.5); IMMATURE GRANULOCYTES 0.2 % (0-5); LYMPHOCYTES 12.6 % (15-50); MCH 22.8 pg (26.0-34.0); MCV 76.1 fL (80.0-100.0); MONOCYTES 14.2 % (2-11); NEUTROPHILS 71.2 % (40-80); PLATELET COUNT 211 10x3/uL (130-400); RBC 4.51 10x6/uL (4.20-6.10); RDW 19.3 % (11.5-14.5); WBC 8.2 10x3/uL (4.8-10.8)
[2016-05-15 06:42] LABS: ANION GAP 14.6 mmol/L (8-16); CARBON DIOXIDE 27.1 mmol/L (21.0-32.0); CREATININE - SERUM 1.3 mg/dL (0.6-1.3); POTASSIUM - SERUM 3.7 mmol/L (3.5-5.1)
--- NOTE | 2016-05-15 08:08 | NUR ---
RESP UL ON . IV PATENT. ASSISTED UP SOB FOR BRK. WILL CONT. PLAN OF CARE.
[2016-05-15 09:36] VITALS: BP 124/83
--- NOTE | 2016-05-15 11:24 | NUR ---
ASSESSMET COMPLETED. CONFUSED. 02 AT 2 L/M PER NC. LEFT UPPER ARM WITH MIDLINE SL. BEDALARM ON. MACEDO CATH TO BEDSIDE. SCROTUM AND PENIS SWOLEN
[2016-05-15 12:11] VITALS: BP 131/72
--- NOTE | 2016-05-15 14:00 | NUR ---
OUT SIDE WITH IN WHEELCHAIR. WILL MONITOR
[2016-05-15 18:08] VITALS: BP 135/74
--- NOTE | 2016-05-15 18:36 | NUR ---
LYING QUIETLY. NO NEEDS. NOTED. WILL MONITOR
[2016-05-15 19:00] VITALS: BP 108/84
--- NOTE | 2016-05-15 19:30 | NUR ---
ASSESSMENT DONE. PT LAYING IN BED WATCHING TV. NO DISTRESS NOTED. PT DENIES NEEDS AT THIS TIME. CALL LIGHT WITH IN REACH. BED ALARM ON. WILL CONT. TO MONITOR.
[2016-05-16] VITALS (12 sets, daily range): BP systolic 100–131; BP diastolic 51–87
--- NOTE | 2016-05-16 00:36 | NUR ---
PT SLEEPING. APPEARS COMFORTABLE. NO DISTRESS NOTED. RESP EVEN AND UNLABORED. CALL LIGHT WITH IN REACH. BED ALARM ON. WILL CONT. TO MONITOR.
--- NOTE | 2016-05-16 02:58 | NUR ---
PT SLEEPING. EYES CLOSED, RESP EVEN AND UNLABORED. NO DISTRESS NOTED. CALL LIGHT WITH IN REACH. BED ALARM ON. WILL CONT. TO MONITOR.
--- NOTE | 2016-05-16 05:10 | NUR ---
AGREE WITH SUPERCHARGER REPAIR SUPERVISOR'S ASSESSMENT. CONTINUE PLAN OF CARE.
[2016-05-16 06:15] LABS: BASOPHILS 0.4 % (0.0-2.0); EOSINOPHILS 2.5 % (0-7); HEMATOCRIT 35.6 % (42.0-54.0); HEMOGLOBIN 10.8 g/dL (13.5-17.5); IMMATURE GRANULOCYTES 0.2 % (0-5); LYMPHOCYTES 14.1 % (15-50); MCH 22.7 pg (26.0-34.0); MCHC 30.3 g/dL (31.0-37.0); MCV 74.8 fL (80.0-100.0); MONOCYTES 13.2 % (2-11); NEUTROPHILS 69.6 % (40-80); PLATELET COUNT 221 10x3/uL (130-400); RBC 4.76 10x6/uL (4.20-6.10); WBC 8.4 10x3/uL (4.8-10.8)
--- NOTE | 2016-05-16 06:21 | NUR ---
PT SLEEPING. AWAKEN BY NURSE. PT DENIES NEEDS AT THIS TIME. NO DISTRESS NOTED. REMINGTON GALAN PATENT TO BSD. CALL LIGHT WITH IN REACH. BED ALARM ON. WILL CONT. TO MONITOR.
[2016-05-16 06:43] LABS: ALBUMIN 2.7 g/dL (3.4-5.0); ANION GAP 16.1 mmol/L (8-16); CALCIUM 9.1 mg/dL (8.5-10.1); CREATININE - SERUM 1.3 mg/dL (0.6-1.3); PROTEIN - SERUM 6.8 g/dL (6.4-8.2)
[2016-05-16 06:49] LABS: POTASSIUM - SERUM 3.1 mmol/L (3.5-5.1)
--- NOTE | 2016-05-16 07:05 | NUR ---
RECEIVED REPORT. ASSUMED CARE OF PATIENT. PATIENT STANDING AT BEDSIDE MESSING WITH IV AND OXYGEN TUBING. ASSISTED PATIENT BACK TO BED. PATIENT VERY HARD OF HEARING. PATIENT IS ALERT/ORIENTED. BED ALARM PATENT TO FULL AREA OF BED. CALL LIGHT PLACED WITHIN REACH. DENIES NEEDS AT THIS TIME. NO DISTRESS.
--- NOTE | 2016-05-16 08:51 | NUR ---
CONSENTS SIGNED. PREOP MEDICATIONS ADMINISTERED ORDERED AT THIS TIME. NO DISTRESS.
[2016-05-16 09:01] LABS: CALCIUM 9.1 mg/dL (8.5-10.1); CARBON DIOXIDE 25.5 mmol/L (21.0-32.0); CREATININE - SERUM 1.4 mg/dL (0.6-1.3); POTASSIUM - SERUM 3.5 mmol/L (3.5-5.1)
--- NOTE | 2016-05-16 10:05 | NUR ---
PATIENT LEFT FOR BRANCH COORDINATOR AT THIS TIME VIA BED IN NO ACUTE DISTRESS.
--- NOTE | 2016-05-16 11:45 | NUR ---
RECEIVED PATIENT BACK FROM BOW STAPLER. EASILY AROUSED. PULSES PRESENT. NO HEMATOMA FORMATION NOTED TO RIGHT GROIN. DRESSING CLEAN DRY AND INTACT. BP MONITORED EVERY 15 MINUTES. CALL LIGHT PLACED WITHIN REACH. PATIENTS FAMILY STATES SHE WILL BE BACK ABOUT 7 OR 8 TONIGHT. SHE WANTS HIM TO REST. NO DISTRESS.
--- NOTE | 2016-05-16 12:19 | NUR ---
FSBS 113. NO INSULIN COVERAGE PER SLIDING SCALE. RESTING WITH EYES CLOSED. PERIPHERAL PULSES PERSENT. NO HEMATOMA FORMATION NOTED TO RIGHT GROIN. CALL LIGHT WITHIN REACH.
--- NOTE | 2016-05-16 13:00 | NUR ---
RESTING WITH EYES CLOSED. RESP EVEN AND UNLABORED. NO HEMATOMA TO RIGHT GROIN, PULSES PRESENT TO BILATERAL LOWER EXTREMITIES. EASILY AROUSED. CALL LIGHT WITHIN REACH. NO DISTRESS.
--- NOTE | 2016-05-16 14:00 | NUR ---
EASILY AROUSED. RESP EVEN AND UNLABORED. NO DISTRESS. PULSE PRESENT TO BILATERAL LOWER EXTREMITIES. NO HEMATOMA / BLEEDING TO RIGHT GROIN. CALL LIGHT WITHIN REACH.
--- NOTE | 2016-05-16 16:21 | NUR ---
FSBS 98. NO INSULIN PER SLIDING SCALE. RESTING WELL. EASILY AROUSED. NO DISTRESS. CALL LIGHT WITHIN REACH.
--- NOTE | 2016-05-16 18:17 | NUR ---
RESTING IN BED WITH EYES OPEN. CALL LIGHT WITHIN REACH. NO DISTRESS. DENIES NEEDS.
[2016-05-16] MEDS ORDERED: K-DUR20 MEQ PO (18:20)
[2016-05-16] MEDS ORDERED: LASIX80 MG PO (18:24)
--- NOTE | 2016-05-16 20:00 | NUR ---
ASSESSMENT DONE. PT SLEEPING. AWAKEN BY NURSE. PT A/O X3 AT THIS TIME. DRESSING TO RT GROIN IS CLEAN, DRY AND INTACT, NO S/S OF HEMATOMA. PEDAL PULSES PALPABLE. MACEDO CATH PATENT TO BSD WITH CLEAR YELLOW URINE. WILL BEGIN BLADDER TRAINING. PT DENIES NEEDS AT THIS TIME. CALL LIGHT WITH IN REACH. BED ALARM ON. WILL CONT. TO MONITOR.
--- NOTE | 2016-05-16 22:34 | NUR ---
PT SLEEPING. RESP EVEN AND UNLABORED. NO DISTRESS NOTED. CALL LIGHT WITH IN REACH. BED ALARM ON. WILL CONT. TO MONITOR.
[2016-05-17] VITALS: BP 132/71
--- NOTE | 2016-05-17 02:30 | NUR ---
PT LAYING IN BED WITH EYES CLOSED AND APPEARED TO BE GRUNTING IN HIS SLEEP. PT WITH APPEARS TO BE GRIMACING. NURSE WOKE PT. PT DENIES PAIN OR DISTRESS AT THIS TIME. HOB ELEVATED. DRESSING TO RT GROIN CLEAN DRY AND INTACT. NO S/S OF BLEEDING OR HEMATOMA. MACEDO CATH PATENT TO BSD. PT'S ROOM DOOR LEFT OPEN. BED ALARM ON. CALL LIGHT WITH IN REACH. WILL CONT. TO MONITOR.
[2016-05-17 04:00] VITALS: BP 111/57
--- NOTE | 2016-05-17 04:20 | NUR ---
PT SLEEPING. APPEARS COMFORTABLE. NO DISTRESS NOTED. BLADDERING TRAINING CONTINUES, THOUGH PT HAS NOT ONCE C/O HIS BLADDER BEING FULL. PT HAS SLEPT THROUGH NURSE CLAMPING AND UNCLAMPING MACEDO TUBING Q 2HRS. CALL LIGHT WITH IN REACH. BED ALARM ON. WILL CONT. TO MONITOR.
[2016-05-17 05:58] LABS: BASOPHILS 0.2 % (0.0-2.0); EOSINOPHILS 0.3 % (0-7); HEMATOCRIT 35.1 % (42.0-54.0); HEMOGLOBIN 10.6 g/dL (13.5-17.5); IMMATURE GRANULOCYTES 0.2 % (0-5); LYMPHOCYTES 8.5 % (15-50); MCH 22.4 pg (26.0-34.0); MCHC 30.2 g/dL (31.0-37.0); MCV 74.2 fL (80.0-100.0); MONOCYTES 12.7 % (2-11); NEUTROPHILS 78.1 % (40-80); PLATELET COUNT 239 10x3/uL (130-400); RBC 4.73 10x6/uL (4.20-6.10); RDW 18.8 % (11.5-14.5); WBC 10.2 10x3/uL (4.8-10.8)
--- NOTE | 2016-05-17 05:59 | NUR ---
PT SLEEPING. AWAKEN BY NURSE. DENIES PAIN. DENIES NEEDS AT THIS TIME. MACEDO CATH UNCLAMPED. B4 NURSE UNCLAMPED MACEDO PT WAS ASKED IF HE NEEDED TO URINATE. PT REPLIED WITH NO. DRESSING TO RIGHT GROIN WNL. NO S/S OF BLEEDING OR HEMATOMA. BED ALARM ON. PT ATTMEPTED TO GET UP, AND NURSE REMINDED PT TO STAY IN BED AND REST. CALL LIGHT WITH IN REACH.
[2016-05-17 06:15] LABS: ANION GAP 14.1 mmol/L (8-16); CALCIUM 8.5 mg/dL (8.5-10.1); CARBON DIOXIDE 27.4 mmol/L (21.0-32.0); CREATININE - SERUM 1.4 mg/dL (0.6-1.3)
[2016-05-17 06:21] LABS: POTASSIUM - SERUM 2.5 mmol/L (3.5-5.1)
--- NOTE | 2016-05-17 07:00 | NUR ---
RECEIVED REPORT. ASSUMED CARE OF PATIENT. ALERT/AWAKE LYING IN BED. ATTENTION TOWARD TELEVISION. CALL LIGHT WITHIN REACH. NO DISTRESS. DENIES NEEDS AT THIS TIME.
--- NOTE | 2016-05-17 07:30 | NUR ---
ATTEMPTED TO TAKE PATIENTS MACEDO CATHETER OUT. MACEDO CATHETER PLACED DUE TO URINARY RETENSION ON 05/11/16. WHEN ATTEMPTING TO REMOVE MACEDO THIS AM, PENILE SHAFT VERY EDEMATOUS, IF PATIENT STILL EXPERIENCES URINARY RETENSION, AFFRAID MACEDO CATHETER WILL NOT BE ABLE TO BE INSERTED. WAITING ON PHYSICIAN FOR AM ROUNDS PRIOR TO DISCONTINUING MACDEO CATHETER.
[2016-05-17 08:27] VITALS: BP 124/83
--- NOTE | 2016-05-17 11:44 | NUR ---
FSBS 186. 2 UNITS HUMAGLOG ADMINISTERED PER SLIDING SCALE.
[2016-05-17 13:36] VITALS: BP 126/58
--- NOTE | 2016-05-17 13:43 | NUR ---
1315 ENTERED ROOM TO GIVE PATIENT PAIN MEDICATION REQUESTED. PATIENT SITTING TO SIDE OF BED, ATTEMPTING TO HELP PATIENT GET A PAIR OF SCRUB PANTS ON. WALKED AROUND TO SIDE OF BED THAT PATIENT IS SITTING ON, IS HOLLORING AT PATIENT TO LIFT HIS LEG AND THEN SHE STARTS YELLING AT HIM "STOP DOING THAT, YINKA THAT IS UNNESSECARY" ABOUT THAT TIME THE YELLS WHAT IS THIS AND HAS PATIENTS MIDELINE FROM HIS LEFT UPPER ARM IN HER HAND. THIS CLAY MAKER IMMEDIATELY GRABS PATIENT ARM TO APPLY PRESSURE AND LEAN OVER AND PUSH THE CALL LIGHT TO HAVE SOMEONE BRING GAUZE AND TAPE. DRESSING REMOVED, AREA BLEEDING, 4X4'S APPLIED AND PRESSURE HELD FOR 4 MINUTES. PATIENT IS ON ELUIQUIS. PATIENTS THROWS MIDLINE AWAY IN BATHROOM TRASH. THIS CLAY MAKER ASK HER WHERE IS THE LINE, SHE STATES I DON'T HAVE IT, ITS IN THE TRASH. RETRIEVED MIDLINE FROM TRASH AND PLACES IT ON BEDSIDE TABLE. PRESSURE DRESSING APPLIED AND SECURE. NO BLEEDING FROM SITE. STATES "ACCIDENTS HAPPEN, I KNOW YOUR PISSED OFF ABOUT THE LINE COMMING OUT BUT THINGS HAPPEN. HE IS STRESSING ME OUT". THIS CLAY MAKER STATED "MA'AM I AM SORRY THAT YOU FEEL OR PERCIEVE THAT I AM UPSET BUT YOUR PERCEPTION IS WRONG. WE CAN GET SOMEONE TO PUT THE LINE BACK IN." SHE STATES YOU SLAMMED THIS DOWN ON THE TABLE, I KNOW YOUR PISSED. PATIENTS , EDUARDO, HOLDING THE CALL LIGHT IN HER HAND. THIS CLAY MAKER DROPPED THE CALL LIGHT WHILE TRYING TO APPLY PRESSURE TO PATIENT ARM. MEANWHILE, PATIENTS ALSO HAS HER 4 YEAR OLD GRANDDAUGHER RUNNING AROUND ROOM, SPRAYING AXE BODY SPRAY. THIS CLAY MAKER ASSISTED PATIENT TO LYE DOWN IN BED, O2 PLACED, MACEDO SECURED TO RIGHT UPPER THIGH. AND GRANDDAUGHTER REMAIN AT BEDSIDE. MEDICATED PATIENT FOR PAIN AT THIS TIME. CHARGE NURSE AND PATTERN VAULT CLERK NOTIFIED OF MIDLINE BEING PULLED OUT. PATIENTS ALSO STATES THAT WANTS THE MACEDO TO BE TAKEN OUT. I INFORMED THE THAT THIS CLAY MAKER HAS SPOKEN TO AND DUE TO PLACING THAT MACEDO AND THE AMOUNT OF SWELLING PRESENT TO PENIS, STATES THAT PATIENT WILL BE OK TO GO HOME WITH MACEDO CATHETER. PATIENTS STATES THAT SHE WILL NOT ALLOW HIM TO GO HOME WITH MACEDO BECAUSE HE WILL GET CONFUSED AND PULL IT OUT. INFORMED I WOULD RELAY THAT MESSAGE TO .
--- NOTE | 2016-05-17 14:51 | NUR ---
1420 22 GAUGE IV PLACED TO RIGHT HAND VIA ELECTRICAL TECH, USHA. GOOD BLOOD RETURN, EASY FLUSH. TAPED, DATED AND SECURED. TOLERATED IV PLACEMENT WELL. NO DISTRESS.
--- NOTE | 2016-05-17 15:30 | NUR ---
SPOKE LUZMA CLAY, RENAL TRAILER MECHANIC, AND REPORTED THAT PATIENTS K+ LEVEL IS STILL CRITICAL AT 2.5 AND PATIENT HAS HAD 100MEQ OF K+ TOTAL THIS SHIFT AND K+ IS NOT COMING UP. NEW ORDERS RECEIVED AND PLACED INTO COMPUTER.
--- NOTE | 2016-05-17 18:20 | NUR ---
RESTING IN BED WITH EYES OPEN. DENIES NEEDS. CALL LIGHT WITHIN REACH. NO DISTRESS.
[2016-05-17 18:52] VITALS: BP 112/72
[2016-05-17 19:00] VITALS: BP 110/71
--- NOTE | 2016-05-17 19:51 | NUR ---
REC'D IN BED AWAKE AND ALERT. RESP EVEN AND UNLABORED. CAN VOICE NEEDS AND WANTS. NO C/O NOTE OR VOICED AT THIS TIME. ASSESSMENT COMPLETED. DENIES ANY PAIN AT THIS TIME. C/L N REACH AT BEDSIDE.
[2016-05-18] VITALS: BP 106/68
--- NOTE | 2016-05-18 00:30 | NUR ---
OPTICAL COATING TECHNICIAN AT BEDSIDE FOR VS. NEEDS ADDRESSED AT THIS TIME. CALL LIGHT IN REACH. WILL CONT TO MONITOR.
--- NOTE | 2016-05-18 03:00 | NUR ---
PT RESTED WELL THROUGH OUT THE NIGHT NO C/O NOTED OR VOICED. C/L IN REACH AT BEDSIDE.
[2016-05-18 04:00] VITALS: BP 147/88
[2016-05-18 05:21] LABS: BASOPHILS 0.3 % (0.0-2.0); EOSINOPHILS 1.9 % (0-7); HEMATOCRIT 35.3 % (42.0-54.0); HEMOGLOBIN 10.8 g/dL (13.5-17.5); IMMATURE GRANULOCYTES 0.2 % (0-5); LYMPHOCYTES 12.7 % (15-50); MCH 22.6 pg (26.0-34.0); MCHC 30.6 g/dL (31.0-37.0); MONOCYTES 14.2 % (2-11); NEUTROPHILS 70.7 % (40-80); PLATELET COUNT 227 10x3/uL (130-400); RBC 4.77 10x6/uL (4.20-6.10); WBC 8.9 10x3/uL (4.8-10.8)
[2016-05-18 05:55] LABS: ANION GAP 14.7 mmol/L (8-16); CALCIUM 8.8 mg/dL (8.5-10.1); CREATININE - SERUM 1.4 mg/dL (0.6-1.3)
[2016-05-18 05:57] LABS: POTASSIUM - SERUM 3.7 mmol/L (3.5-5.1)
[2016-05-18 07:41] VITALS: BP 97/55
--- NOTE | 2016-05-18 08:07 | NUR ---
ASSESSMENT COMPLETED. CONFUSED. O2 AT 2 L/M . RIGHT HAND SL. SCROTUM AND PENIS SWOLLEN. PT IS HARD OF HEARING. SR UP WITH CALL LIGHT IN REACH
--- NOTE | 2016-05-18 08:44 | NUR ---
UP IN ROOM. RICKY NEEDS AT THIS TIME. WILL MONITOR.
--- NOTE | 2016-05-18 10:56 | NUR ---
WENT TO VISIT PATIENT WITH CELL TESTER. FOUND PT SIDEWAYS ACROSS IN BED. PATIENT CONFUSED. URINE DRIPPING AND POOLING ON THE FLOOR. MACEDO BAG NOT CLAMPED. CLAMPED MACEDO BAG. PJ BOTTOMS ARE WET. WHEN REMOVING BOTTONS, COLLEEN HOSE ON. HOSE ARE TIGHT AROUND TOES. FEET AND TOES COLD WITH RIGHT FOOT WORSE. COLLEEN HOSE CAUSING INDENTATIONS RAFFI WITH R LEG WORSE. WEAK PEDIAL PULSES. CAP REFILL 3 SECS. COLLEEN HOSE REMOVED RAFFI. SMALL DRESSING ON R L LOWER LEG NOTED. DRESSING REMOVED AND SMALL SORE SCABBED OVER NOTED. VERY SMALL AMT OF BLOOD NOTED ON DRESSING. NEW DRESSING APPLIED. SCDS APPLIED. BED LINEN CHANGED. GOWN ON PATIENT. PT STRAIGHTEN OUT IN BED. PT DID NOT ASSIST ANY, O2 APPLIED. PATIENT REMAINS CONFUSED AND ANSWERING CELL TESTER QUESTION ABOUT GOING HOME BY SAYING "HE WANTS TO WIN THAT BIG CONTEST SHE IS GIVING. " FEET AND TOES ALREADY WARMER. PTS NURSE INFORMED OF INCIDENT. DURING THIS TIME, CALLED TO CHECK ON PATIENT. PTS BEDSIDE NURSE INFORMED HER OF THE INCIDENCE.
--- NOTE | 2016-05-18 13:05 | NUR ---
LYING QUIETLY WITH EYES CLOSED. BED ALARM ON. INSTRUCTIONS GIVEN TO PT ABOUT CALL FOR HELP WHEN HE NEEDS TO GET UP
--- NOTE | 2016-05-18 15:06 | NUR ---
REHAB PRESCREENING Rehab referral received and chart reviewed. There is noted concern in nursing note and PT note that this patient has had a decline in mental status. Rehab will continue to follow this patient for further follow up. Thank you for this referral! Milana Sotomayor, POLISHER APPRENTICE/[facility]
[2016-05-18 16:22] VITALS: BP 122/73
--- NOTE | 2016-05-18 18:13 | NUR ---
LYING QUIETLY. DENIES ANY NEEDS. SR UP WITH CALL LIGHT IN REACH.BED ALARM ON. WILL MONITOR
[2016-05-18 21:17] VITALS: BP 128/77
--- NOTE | 2016-05-19 00:03 | NUR ---
1930)REC'D VISITORS AT BEDSIDE.DENIES ANY DISCOMFORT AT PRESENT TIME. MICHELE CONTINUE TO MONITOR FOR ANY CHGES AND FOLLOW CURRENT PLAN OF CARE
[2016-05-19 00:40] VITALS: BP 113/73
[2016-05-19 04:41] LABS: BASOPHILS 0.4 % (0.0-2.0); EOSINOPHILS 2.9 % (0-7); HEMATOCRIT 35.5 % (42.0-54.0); HEMOGLOBIN 10.8 g/dL (13.5-17.5); IMMATURE GRANULOCYTES 0.4 % (0-5); MCH 22.6 pg (26.0-34.0); MCHC 30.4 g/dL (31.0-37.0); MCV 74.4 fL (80.0-100.0); MONOCYTES 13.6 % (2-11); NEUTROPHILS 69.7 % (40-80); PLATELET COUNT 260 10x3/uL (130-400); RBC 4.77 10x6/uL (4.20-6.10); RDW 19.2 % (11.5-14.5); WBC 8.2 10x3/uL (4.8-10.8)
[2016-05-19 05:15] LABS: ALBUMIN 2.7 g/dL (3.4-5.0); ANION GAP 12.3 mmol/L (8-16); BILIRUBIN - TOTAL 1.23 mg/dL (0.2-1.3); CALCIUM 8.8 mg/dL (8.5-10.1); CARBON DIOXIDE 29.4 mmol/L (21.0-32.0); CREATININE - SERUM 1.3 mg/dL (0.6-1.3); MAGNESIUM - SERUM 1.7 mg/dL (1.8-2.4); POTASSIUM - SERUM 3.7 mmol/L (3.5-5.1); PROTEIN - SERUM 6.9 g/dL (6.4-8.2)
[2016-05-19 05:57] VITALS: BP 115/73
--- NOTE | 2016-05-19 07:10 | NUR ---
RECEIVED REPORT. ASSUMED CARE OF PATIENT. CALL LIGHT WITHIN REACH. SCD'S PATENT. PATIENT TOL[place]A DEE-NI'. ALERT/CONFUSION NOTED. REORIENTED TO PLACE. DENIES NEEDS. PULLED PATIENT UP IN BED AT THIS TIME WITH ASSIST. NO DISTRESS.
[2016-05-19 08:00] VITALS: BP 122/71
--- NOTE | 2016-05-19 10:00 | NUR ---
MACEDO CATHETER REMAINS PATENT. MACEDO WAS PLACED BY ON 05/11/16 DUE TO URINARY RETENSION. PATIENT CONTINUES TO HAVE PENILE AND SCROTAL EDEMA. CLEAR YELLOW URINE TO DRAINAGE BAG VIA GRAVITY. THIS INSTRUCTOR TAP DANCING DISCUSSED WITH ON 05/17/16 THE ORDER FOR DISCONTINING MACEDO AND STATED TO NOT D/C MACEDO. THIS IS ALSO NOTED IN NOTED DATED 05/17/16.
--- NOTE | 2016-05-19 11:36 | NUR ---
Patient Name: YINKA SANDHU Encounter No: [id number] : 1945 Primary Insurance: MEDICARE A & B Anticipated DC Date: 05-19-2016 Planned Disposition: Inpatient Rehab External Planned Provider: [facility] DCP follow-up note: CM RECEIVED ORDER FOR INPATIENT REHAB PRESCREENING. CM MET WITH PT IN ROOM, DISCUSSED REHAB OPTIONS. PT REPORTS HE HAS BEEN DOWN THERE ONCE BEFORE AND IS IN AGREEMENT TO GO AGAIN IF THEY WILL ACCEPT HIM. PT'S SPOUSE ARRIVED, REPORTS THAT SHE THOUGHT PT WOULD ALREADY BEEN IN REHAB TODAY AND IS IN AGREEMENT WITH DISCHARGE TO INPATIENT REHAB AT [place]. IMPORTANT MESSAGE FROM MEDICARE PROVIDED AND EXPLAINED. CM RECEIVED MESSAGE FROM [facility]ER[facility] OF INPATIENT REHAB, THEY PLAN TO ACCEPT PT TODAY FOR REHAB. [facility] TO CONTACT MED 2 NURSE WITH ROOM NUMBER WHEN READY TO ACCEPT PT AND NURSE REPORT. Marin Horton, CASE MANAGEMENT
--- NOTE | 2016-05-19 11:48 | NUR ---
FSBS 157. 2 UNITS HUMALOG ADMINISTERED AT THIS TIME. NO DISTRESS.
[2016-05-19 12:08] VITALS: BP 110/66
[2016-05-19] MEDS ORDERED: IPRAT-ALBUT 0.5-3 ML UPD (12:40)
[2016-05-19] MEDS ORDERED: ARICEPT10 MG PO (12:40)
[2016-05-19] MEDS ORDERED: ASPIRIN81 MG PO (12:41)
[2016-05-19] MEDS ORDERED: Zaroxolyn PO (12:43)
[2016-05-19] MEDS ORDERED: K-DUR20 MEQ PO (12:43)
[2016-05-19] MEDS ORDERED: HUMALOG 30100 UNITS/ SC (12:45)
[2016-05-19] MEDS ORDERED: JANUVIA25 MG PO (12:45)
--- NOTE | 2016-05-19 13:35 | NUR ---
MACEDO CATHETER REMOVED AT THIS TIME PER ORDERS FROM [facility]. PATIENT IS DISCHARGING DOWNSTAIRS TO REHAB. PATIENT TOLERATED FC WELL. NO DISTRESS. PATIENT WILL NEED TO VOID BY 1929.
[2016-05-19 16:00] VITALS: BP 122/68
--- NOTE | 2016-05-19 16:10 | NUR ---
ASSISTED PATIENT FROM BATHROOM TO BED. BM NOTED. NO URINATION YET AFTER MACEDO CATH REMOVAL. CALL LIGHT WITHIN REACH. NO DISTRESS.
--- NOTE | 2016-05-19 16:14 | NUR ---
FSBS 124. NO INSULIN COVERAGE PER SLIDING SCALE.
--- NOTE | 2016-05-19 19:50 | NUR ---
ASSESSMENT DONE. PT SLEEPING. AWAKEN BY NURSE. PT A/O X2. NO DISTRESS NOTED. PT DENIES NEEDS AT THIS TIME. SCD ARE CURRENTLY OFF. BED ALARM TURNED ON. CALL LIGHT WITH IN REACH. ENCOURAGED PT TO CALL FOR HELP B4 AMBULATING TO RESTROOM. PT VERBALIZED UNDERSTANDING. WILL CONT. TO MONITOR.
--- NOTE | 2016-05-19 20:27 | NUR ---
CALLED IN [facility] TO CHECK ON PT'S ADMISSION SCREENING STATUS. SPOKE WITH DEISY. WAS TOLD THEY HAD TO MAKE A PHONE CALL AND THEY WOULD CALL ME BACK.
--- NOTE | 2016-05-19 20:46 | NUR ---
REPORT CALLED TO IBRAHIMA AT [facility]IENT [facility].
[2016-05-19 21:13] VITALS: BP 111/70
--- NOTE | 2016-05-19 21:46 | NUR ---
PT TAKEN TO INPATIENT REHAB VIA WC. PT'S BELONGINGS PACKED BY PREVIOUSLY BY PT'S AND ARE IN A DUFFLE BAG. STEELSCOPE OPERATOR PACKED THE REMAINER OF PT'S BELONGS THAT WERE LEFT IN DRAWERS. PT'S INSULIN SENT DOWN TO REHAB.
[2016-05-20] MEDS ORDERED: SALINE FLUSH10 ML IV (07:53)
[2016-05-20] MEDS ORDERED: METOLAZONE2.5 MG PO (10:07)
== END 2016-05-19 21:46 | DRG 286 ==
LOC: D.M2 13:11
PROVIDERS: Family Medicine; Internal Medicine; Internal Medicine Cardiovascular Disease; Internal Medicine Nephrology; Internal Medicine Pulmonary Disease; ADMIT Family Medicine
PROC: 02HV33Z Insertion of Infusion Device into Superior Vena Cava, Percutaneous Approach (ICD-10-PCS; principal; 2016-05-04)
PROC: B2141ZZ Fluoroscopy of Right Heart using Low Osmolar Contrast (ICD-10-PCS; 2016-05-04)
PROC: B548ZZA Ultrasonography of Superior Vena Cava, Guidance (ICD-10-PCS; 2016-05-04)
PROC: 4A133B3 Monitoring of Arterial Pressure, Pulmonary, Percutaneous Approach (ICD-10-PCS; 2016-05-16)
PROC: 4A1239Z Monitoring of Cardiac Output, Percutaneous Approach (ICD-10-PCS; 2016-05-16)
PROC: 4A023N6 Measurement of Cardiac Sampling and Pressure, Right Heart, Percutaneous Approach (ICD-10-PCS; 2016-05-16)
DX: I13.0 Hypertensive heart and chronic kidney disease with heart failure and stage 1 through stage 4 chronic kidney disease, or unspecified chronic kidney disease (principal); I50.21 Acute systolic (congestive) heart failure; J44.1 Chronic obstructive pulmonary disease with (acute) exacerbation; N17.9 Acute kidney failure, unspecified; N48.89 Other specified disorders of penis; E11.40 Type 2 diabetes mellitus with diabetic neuropathy, unspecified; E11.21 Type 2 diabetes mellitus with diabetic nephropathy; E11.65 Type 2 diabetes mellitus with hyperglycemia; I25.10 Atherosclerotic heart disease of native coronary artery without angina pectoris; I27.2 Other secondary pulmonary hypertension; I08.3 Combined rheumatic disorders of mitral, aortic and tricuspid valves; I48.91 Unspecified atrial fibrillation; D50.9 Iron deficiency anemia, unspecified; E87.6 Hypokalemia; R33.9 Retention of urine, unspecified; F03.90 Unspecified dementia, unspecified severity, without behavioral disturbance, psychotic disturbance, mood disturbance, and anxiety; N18.3 Chronic kidney disease, stage 3 (moderate); E11.22 Type 2 diabetes mellitus with diabetic chronic kidney disease; R41.0 Disorientation, unspecified; Z86.711 Personal history of pulmonary embolism; Z86.718 Personal history of other venous thrombosis and embolism; Z87.891 Personal history of nicotine dependence

== ENCOUNTER 2016-05-19 21:50 | Inpatient (IN) | payer MEDICARE ==
[~2016-05-19] VITALS: Ht 175.3 cm; Wt 82.8 kg
[~2016-05-19 21:50] MED LIST changes: +ARICEPT10 MG PO; +HUMALOG 30100 UNITS/ SC; +IPRAT-ALBUT 0.5-3 ML UPD; +JANUVIA25 MG PO; +LASIX80 MG PO; +Zaroxolyn PO
--- NOTE | 2016-05-20 05:45 | NUR ---
[facility] [place] [place] [facility] [place] URINAL. CLEANSED PATIENT FROM INCONTINENCE IN HIS BRIEF AFTER HE AGAIN URINATED IN COMMODE AND HAD A LARGE FORMED DARK BM. ALSO HAD A FEW DROPS OF DARK BLOOD RECTALLY ON COMPLETION OF BM. ON RETURN TO BED FSBS WAS 127. FLUSHED RIGHT HAND S/L.
--- NOTE | 2016-05-20 07:00 | NUR ---
PT WAS RECEIVED IN BED AT THE BEGINNING OF THIS SHIFT. AWAKE AND ORIENTED ONLY TO SELF. VITAL SIGNS; TEMP. 97.9, PULSE 92, RESP. 16, B/P 123/65, 02SAT. 02SAT. 98% ON 2L 02 PER NC. PT. IS TOTAL ASSIST WITH ALL ADL'S. WILL BE MONITORING PT AND ASSISTING PRN WITH ADL'S. NO SIGNS OF DISCOMFORT OR DISTRESS. CALL LIGHT IS IN REACH.
[2016-05-20] MEDS ORDERED: SALINE FLUSH10 ML IV (07:53)
[2016-05-20 08:59] VITALS: BP 123/65
[2016-05-20] MEDS ORDERED: METOLAZONE2.5 MG PO (10:07)
[2016-05-20 12:16] LABS: BASOPHILS 0.2 % (0.0-2.0); EOSINOPHILS 1.2 % (0-7); HEMOGLOBIN 11.6 g/dL (13.5-17.5); IMMATURE GRANULOCYTES 0.3 % (0-5); MCH 22.6 pg (26.0-34.0); MCHC 30.5 g/dL (31.0-37.0); MCV 73.9 fL (80.0-100.0); MONOCYTES 12.2 % (2-11); NEUTROPHILS 75.1 % (40-80); PLATELET COUNT 263 10x3/uL (130-400); RBC 5.14 10x6/uL (4.20-6.10); RDW 19.6 % (11.5-14.5)
[2016-05-20 12:28] LABS: WBC 10.4 10x3/uL (4.8-10.8)
[2016-05-20 12:35] LABS: ANION GAP 17.2 mmol/L (8-16); CALCIUM 9.2 mg/dL (8.5-10.1); CARBON DIOXIDE 26.2 mmol/L (21.0-32.0); CREATININE - SERUM 1.3 mg/dL (0.6-1.3)
[2016-05-20 12:37] LABS: POTASSIUM - SERUM 4.4 mmol/L (3.5-5.1)
[2016-05-20 14:08] VITALS: Ht 175.3 cm; Wt 82.8 kg
--- NOTE | 2016-05-20 15:24 | NUR ---
DR. SABA ROUNDED THIS MORNING AND NEW ORDER RECEIVED FOR A OCCULT BLOOD STOOL SPECIMEN. PT WENT TO THE BATHROOM WITH ASSIST AND ONLY URINATED. A FEW DROPS OF CATY BLOOD NOTED IN HIS BRIEF. UPON EXAMINATION OF RECTAL AREA PT. DOES HAVE SEVERAL LARGE HEMMOROIDS THAT ARE EXTERNAL. WILL OBTAIN A STOOL SPECIMEN WHEN ONE IS AVAILABLE.
--- NOTE | 2016-05-20 16:58 | NUR ---
CARE TEAM MEETING: PATIENT NEW TO UNIT AND WILL BE RA AT NEXT MEETING. WILL CONTINUE TO FOLLOW WITH PATIENT
--- NOTE | 2016-05-20 18:50 | NUR ---
PATIENT IN BED, RESTING QUIETLY.SR UP X3 WITH YI BED ALARM ARMED. WATER AND CALL LIGHT IN REACH.
[2016-05-20 19:15] VITALS: BP 132/72
--- NOTE | 2016-05-20 21:20 | NUR ---
ASSESSMENT AND HS MEDS COMPLETE. AND JENNIFER JUST ARRIVED FOR A BRIEF VISIT. DISCUSSED HIS BEHAVIOR TODAY (MULTIPLE ATTEMPTS OOB). AWARE. SAYS SHE IS A NURSE AND APPEARS WELL-INFORMED ABOUT PATIENT'S CONDITION. EXPRESSES CONCERN OVER PATIENT'S POOR APPETITE, AND ALSO THAT MR. SANDHU HAS BEEN TAKING LYRICA 75MG PO BID FOR PERIPHERAL NEUROPATHY AND WONDERS WHY IT IS NOT CURRENTLY ORDERED. TOLD HER I WILL PASS ON HER CONCERNS TO DR. SABA. ASSISTED PATIENT WITH URINAL PLACEMENT. THEN TOOK OVER WHILE I MOVED ON TO MY NEXT PATIENT.
--- NOTE | 2016-05-20 22:05 | NUR ---
FAMILY HAS DEPARTED. PATIENT LYING IN BED ON LEFT SIDE. NO DISTRESS NOTED.
--- NOTE | 2016-05-21 00:25 | NUR ---
PATIENT TRYING TO EXIT BED. FOUND HIM TO BE INCONTINENT OF A VERY LARGE AMOUNT OF URINE IN BRIEF AND BED. CLEANSED AND CHANGED PATIENT AND ALL BED LINENS. RE-EMPLACED NASAL CANNULA PATIENT HAD REMOVED IT. GAVE PATIENT CORTISPORIN EYEDROPS, 2 DROPS BILAT EYES. CLEANSED DRIED AND SEMI-DRIED BLOOD FROM SMALL ARE OF SKIN ON RIGHT OF NOSE NEAR RT PUNCTA WHICH FLOWED ACROSS HIS NOSE TO HIS LEFT CHECKBONE. ACCORDING TO HIS , PATIENT HAS A LONG HISTORY OF PICKING AT HIS SKIN TILL IT BLEEDS. HE HAS DEMONSTRATED THIS MULTIPLE TIMES SINCE ADMISSION LAST NIGHT. YI BED ALARM REMAINS ARMED. SR UP X3 WITH WATER AND CALL LIGHT IN REACH, IS URINAL.
--- NOTE | 2016-05-21 02:15 | NUR ---
IN BED, EYES CLOSED. SLIGHTLY RESTLESS, BUT NOT AWAKE.
--- NOTE | 2016-05-21 04:20 | NUR ---
SET OFF BED ALARM ATTEMPTING OOB. WAS ASSISTED TO MICHAEL LEDESMA BY FEDE ROY WHO ALSO CLEANSED PATIENT AND APPLIED FRESH SCRUB SHIRT AND CHANGED ALL BED LINENS DUE TO WETNESS.
--- NOTE | 2016-05-21 05:10 | NUR ---
SET OFF BED ALARM ATTEMPTING OOB. TOOK PATIENT TO WHERE HE URINATED A SMALL AMOUNT AND HAD A MEDIUM VOLUME FORMED WITH TRACE OF RECENT PRIOR INCONTINENCE BRIEF. BRIEF WAS CHANGED AND PATIENT WAS RETURNED TO BED. PATIENT COULD NOT FOLLOW INSTRUCTIONS TO WIPE HIMSELF AND ON RETURN TO BED WHEN I ATTEMPTED TO REPLACE NASAL CANNULA IN HIS NARES, HE GAVE ME CHILD-LIKE SMILE AND DODGED HIS HEAD SEVERAL TIMES UNTIL I TOLD HIM IT WAS NOT A JOKE. ONLY THEN DID HE HOLD HIS HEAD STILL.
--- NOTE | 2016-05-21 07:30 | NUR ---
PT IS RESTING IN BED WITH EYES OPEN. ALERT TO SELF, BUT CONFUSED TO TIME AND PLACE. PT REORIENTED EASILY. PT IS HARD OF HEARING. O2 IS ON @ 2.5LPM PER NC. YI ALARM IS ARMED. PT DENIES ANY ACUTE NEEDS AT THIS TIME. NO SOB NOTED. SR'S ARE UP X 3 IN BED. CALL LIGHT AND BEDSIDE TABLE ARE WITHIN EASY REACH.
[2016-05-21 08:16] VITALS: BP 117/77
--- NOTE | 2016-05-21 09:44 | NUR ---
PT IS PARTICIPATING IN THERAPY AT THIS TIME.
[2016-05-21 10:46] LABS: ANION GAP 16.2 mmol/L (8-16); CALCIUM 9.1 mg/dL (8.5-10.1); CARBON DIOXIDE 27.7 mmol/L (21.0-32.0); CREATININE - SERUM 1.4 mg/dL (0.6-1.3); POTASSIUM - SERUM 4.9 mmol/L (3.5-5.1)
--- NOTE | 2016-05-21 12:00 | NUR ---
lying on side.denies meal.cl in reach.on alarm.
--- NOTE | 2016-05-21 12:15 | NUR ---
PT SITTING ON THE SIDE OF HIS BED, FEEDING SELF LUNCH. NO SWALLOWING PROBLEMS NOTED.
--- NOTE | 2016-05-21 15:16 | NUR ---
PT IS PARTICIPATING IN THERAPY AT THIS TIME.
--- NOTE | 2016-05-21 18:12 | NUR ---
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
[2016-05-21 19:10] VITALS: BP 112/62
--- NOTE | 2016-05-21 19:15 | NUR ---
PT RECEIVED IN BED WITH EYES OPEN. NO SIGN/SYMPTOMS OF DISTRESS NOTED. BED ALARM HEARD AFTER LEAVING ROOM WITH PT UP WALKING TO BATHROOM, ENCOURAGED TO SIT IN WHEELCHAIR AND PT DID. ASSISTED TO BATHROOM AND PT STATED THAT HE DID NEED TO USE THE BATHROOM AND RETURNED TO BED. PT ON LEFT SIDE. CALL LIGHT IN REACH. WILL CONTINUE TO OBSERVE.
--- NOTE | 2016-05-22 01:12 | NUR ---
PT IN BED LYING ON LEFT SIDE WITH EYES CLOSED AND CHEST RISING. NO SIGNS OF RESTLESSNESS AT THIS TIME. WILL CONTINUE TO OBSERVE. CALL LIGHT IN REACH.
--- NOTE | 2016-05-22 07:30 | NUR ---
RESTING QUIETLY IN BED. EYES CLOSED. IN ROOM WITH PT. CALL LIGHT IN REACH
--- NOTE | 2016-05-22 07:32 | NUR ---
PT IN BED INCONTINENT OF BLADDER WITH BRIEF AND LINENS CHANGED. PT NOTED PICKING AT SORES CAUSING MINOR BLEEDING TO SITES. ATTEMTED TO GET UP UNASSISTED 2 TIMES DURING NIGHT. RECEIVED MEDICATIONS WITHOUT DIFFICULTY. CALL LIGHT IN REACH.
[2016-05-22 07:59] VITALS: BP 117/88
[2016-05-22 08:05] LABS: ANION GAP 14.3 mmol/L (8-16); CALCIUM 9.3 mg/dL (8.5-10.1); CARBON DIOXIDE 31.8 mmol/L (21.0-32.0); CREATININE - SERUM 1.5 mg/dL (0.6-1.3)
[2016-05-22 08:07] LABS: POTASSIUM - SERUM 3.1 mmol/L (3.5-5.1)
[2016-05-22 08:11] LABS: BASOPHILS 0.1 % (0.0-2.0); EOSINOPHILS 0.1 % (0-7); HEMATOCRIT 38.6 % (42.0-54.0); HEMOGLOBIN 11.7 g/dL (13.5-17.5); IMMATURE GRANULOCYTES 0.3 % (0-5); LYMPHOCYTES 5.7 % (15-50); MCH 23.2 pg (26.0-34.0); MCHC 30.3 g/dL (31.0-37.0); MONOCYTES 9.7 % (2-11); NEUTROPHILS 84.1 % (40-80); PLATELET COUNT 258 10x3/uL (130-400); RBC 5.05 10x6/uL (4.20-6.10); RDW 20.7 % (11.5-14.5)
[2016-05-22 08:19] LABS: MCV 76.4 fL (80.0-100.0); WBC 18.9 10x3/uL (4.8-10.8)
--- NOTE | 2016-05-22 09:41 | NUR ---
Nutrition Follow Up: Chart reviewed. Noted per chart pt is more confused at this time. Pt is eating 10% meal avg on a regular diet - which is a significant decline in po intake from several days ago. Pt is receiving Ensure TID. +BM 05/20/16. Wt on 05/19/16 was 181#. I>O. Labs reviewed - BUN, Cr, Glucose elevated. Meds noted including Megace, Lasix, Januvia, Humalog. Pt with very poor po intake at this time. Rec continue current diet, supplement regimen. Rec continue appetite stimulant. RD following.
--- NOTE | 2016-05-22 10:17 | RHP ---
PATIENT: YINKA SANDHU MEDICAL RECORD: [id number] ACCOUNT: [id number] LOCATION:[facility]1108 : 43 ADMISSION DATE: 05/19/16 REHABILITATION HISTORY AND PHYSICAL EXAMINATION POST ADMISSION PHYSICIAN EXAMINATION Post-Admission Physical Examination and History and Physical DATE OF ADMISSION: 05/19/2016 ADMITTING DIAGNOSES: Acute exacerbation of COPD, bilateral pleural effusions and atelectasis/consolidation throughout his left lung. HISTORY OF PRESENT ILLNESS: The patient is admitted to the inpatient rehab for acute exacerbation of COPD. He is a 70-year-old gentleman who was admitted to [facility] with worsening lower extremity edema. He has been having some dyspnea, had a history of DVT, as well as pulmonary hypertension. Chest x-ray showed increasing left pleural fluid and airspace disease. He was hospitalized at [facility] in late 2015. He has got a history of pleurodesis for chronic pleural effusion. Also, reported urinary retention, chronic nocturia and dribbling. He was independent with ADLs and mobility prior to hospitalization. He has had a decline in his activities of daily living and is currently standby assist, max assist for ADLs and min assist to max assist for mobility with use of a rolling walker. He is also requiring some O2. He and his plan to discharge home and get back to his prior level of functioning if possible. COMORBIDITIES: In this patient include pleural effusion, history of MRSA, got a history of asthma, congestive heart failure, diastolic, lower extremity and scrotal edema, allergic rhinitis, trace regurgitation, chronic atrial fib, chronic kidney disease, history of coronary artery disease, diabetes mellitus, neuropathy and nephropathy, hypertension, obstructive sleep apnea, got a history of PE and DVT in the past. PAST MEDICAL HISTORY: Significant for hypertension, diabetes, DVT, coronary artery disease, anemia, atrial fib, hypercoagulable syndrome, neuropathy, [place], mitral valve problems, apnea, seasonal allergies, pulmonary embolus. PAST SURGICAL HISTORY: Includes gallbladder and coronary artery bypass grafting times 5. ALLERGIES: No known drug allergies. CURRENT MEDICATIONS: Include MiraLax 17 grams daily. He is on a sliding scale with Humalog. He is on Zaroxolyn 2.5 mg daily, Januvia 25 mg daily, Zoloft 100 mg daily, potassium 40 mEq t.i.d., Niferex 1 ____ daily. He is on DuoNeb updrafts. He is on furosemide 80 mg b.i.d., Aricept 10 mg at bedtime, Plavix 75 mg daily, aspirin chewable 81 mg daily, and Eliquis 2.5 mg b.i.d. HABITS: No alcohol or tobacco use. FAMILY HISTORY: Noncontributory. SOCIAL HISTORY: The patient hopes to return back home with his , get back to his prior level of functioning. HISTORY AND PHYSICAL [id number] YINKA SANDHU REVIEW OF SYSTEMS: GENERAL: Does complain of some weakness and fatigue. HEENT: Denies cold, cough, or congestion. CARDIOVASCULAR: Denies chest pain. PHYSICAL EXAMINATION: VITAL SIGNS: Stable, afebrile. GENERAL: An elderly gentleman, in no acute distress upon exam. HEENT: Normocephalic, atraumatic. Mucosa is moist. NECK: Supple. No lymphadenopathy LUNGS: Clear in upper [place]. He does have decreased breath sounds in the bases, especially on the left. CARDIOVASCULAR: Irregular rate and rhythm. ABDOMEN: Benign. EXTREMITIES: No clubbing, cyanosis or edema. NEUROLOGIC: Intact, although he does have a little bit of hesitancy when answering questions. ASSESSMENT: This is a 70-year-old gentleman admitted to the rehab with a working diagnosis of acute exacerbation of COPD complicated by pleural effusions. The patient has potential to make improvement. We instituted the following multidisciplinary therapies including to, but not limited to physical, occupational, respiratory, speech, nutritional services, prosthetics and orthotics. Given his complex condition and risk for more complications, rehabilitation services cannot be provided at a low level of care such as a snf facility. PLAN: 1. Admit to [facility] rehab for intensive inpatient therapy to include the following disciplines: A. Physical therapy to improve gait, all transfer skills and bed mobility to a modified independent level. B. Occupational therapy to improve activities of daily living to a modified independent level. C. Case management to assist with discharge planning and placement options. D. Nutrition to assist with nutritional needs. E. Rehabilitation nursing to assist in monitoring the patient's underlying medical conditions and to assist with any type of bowel or bladder management. 2. The patient's current medication and medical care will be continued. 3. The patient will be placed on standard fall precautions. 4. The patient's estimated length of stay is approximately 7-10 days. 5. Discuss this patient during care team staff meeting this week. TRANSINT:[id number] Voice Confirmation ID: [id number] DOCUMENT ID: [id number] HISTORY AND PHYSICAL [id number] YINKA SANDHU SCOTT MD at 1017 CC: [id number] DICTATION DATE: 05/20/16 0851 SCIENCE LIAISON: 05/20/16 1521 ADM IN [place] [id number] [place] [address]
--- NOTE | 2016-05-22 10:33 | NUR ---
PT IS PARTICIPATING IN THERAPY AT THIS TIME.
--- NOTE | 2016-05-22 12:39 | NUR ---
PT EATING LUNCH IN HIS ROOM. NO NEEDS VOICED.
--- NOTE | 2016-05-22 15:26 | NUR ---
RESTING QUIETLY IN BED AFTER THERAPY. PT VERY TALKATIVE AT THIS TIME.
[2016-05-22 19:11] VITALS: BP 130/64
--- NOTE | 2016-05-22 20:05 | NUR ---
PT SPOUSE TAKING HIM OUTSIDE TO SEE DOGS VIA WHEELCHAIR.
--- NOTE | 2016-05-22 21:40 | NUR ---
PT HS MEDS ADMINISTERED. PT DENIES NEEDS. WCTM. BED LOW. CL IN REACH.
--- NOTE | 2016-05-22 22:50 | NUR ---
PT BRIEF CHANGED DUE TO INCONTINENT URINE. PT DENIES NEEDS. WCTM. BED LOW. CLIN REACH.
--- NOTE | 2016-05-23 00:14 | NUR ---
PT RESTING, EYES CLOSED. BED LOW. CLIN REACH.
--- NOTE | 2016-05-23 02:41 | NUR ---
PT RESTING, EYES CLOSED. BED LOW. CLIN REAHC.
--- NOTE | 2016-05-23 05:50 | NUR ---
PT VERY LETHARGIC THIS AM. PT PINK PAD, SHIRT AND BRIEF CHANGED DUE TO INCONTNENT URINE. PT DENIES NEEDS. BED LOW. CL IN REACH.
[2016-05-23 07:00] VITALS: BP 106/60
--- NOTE | 2016-05-23 07:14 | NUR ---
RESTING QUIETLY IN BED. CALL LIGHT IN REACH
[2016-05-23 07:28] LABS: ANION GAP 9.4 mmol/L (8-16); CALCIUM 8.8 mg/dL (8.5-10.1); CARBON DIOXIDE 33.7 mmol/L (21.0-32.0); CREATININE - SERUM 1.6 mg/dL (0.6-1.3); POTASSIUM - SERUM 3.1 mmol/L (3.5-5.1)
--- NOTE | 2016-05-23 09:26 | NUR ---
DR WISEMAN INTO SEE PATIENT. NEW ORDERS RECEIVED. URINE COLLECTED FOR UA. TAKEN UP TO LAB
[2016-05-23 09:45] LABS: APPEARANCE HAZY (CLEAR); BILIRUBIN NEGATIVE (NEGATIVE); COLOR YELLOW (YELLOW); GLUCOSE NEGATIVE (NEGATIVE); KETONE NEGATIVE (NEGATIVE); LEUKOCYTE ESTERASE 2+ (NEGATIVE); NITRITE POSITIVE (NEGATIVE); PROTEIN NEGATIVE (NEGATIVE); UROBILINOGEN NORMAL (NORMAL)
[2016-05-23 09:56] LABS: BACTERIA MANY /hpf (NONE SEEN); EPITHELIAL CELLS OCC /hpf (0-5); RED CELLS - URINE 0-5 /hpf (0-5); WHITE CELLS - URINE >50 /hpf (0-5)
--- NOTE | 2016-05-23 11:45 | NUR ---
GLUCOSE 205, FOUR UNITS OF SLIDING SCALE INSULIN GIVEN
--- NOTE | 2016-05-23 12:49 | NUR ---
PATIENT VERY SLEEPY THIS AFTER THERPAY. THIS NURSE ENCOURAGED PATIENT TO EAT LUNCH. PATIENT PREFERED TO SLEEP THROUGH LUNCH.
--- NOTE | 2016-05-23 15:56 | NUR ---
DR. Sara SABA IN. NEW ORDERS RECEIVED.
--- NOTE | 2016-05-23 17:14 | NUR ---
HERE VISITING GINA PATIENT. UPDATED ON CARE/NEW ORDERS. GLUCOSE LEVEL 156, FOUR UNITS OF SLIDING SCALE INSULIN GIVEN
[2016-05-23 19:19] VITALS: BP 120/65
--- NOTE | 2016-05-23 19:30 | NUR ---
PT IN BED WITH HOB UP FOR COMFORT, RESTING QUIETLY, RESPIRATIONS EVEN AND UNLABORED, 02 @ 2L VIA N/C, BED ALARM ON, BED IN LOWEST POSITION AND CALL LIGHT WITHIN REACH.
--- NOTE | 2016-05-23 21:40 | NUR ---
PT. IN BED LYING ON HIS LEFT SIDE WITH EYES CLOSED AND RESP. DEEP AND EVEN. CALL LIGHT WITHIN REACH.
--- NOTE | 2016-05-23 23:30 | NUR ---
PT IN BED WITH HOB UP FOR COMFORT, EYES CLOSED CHEST RISING AND FALLING, BED IN LOWEST POSITION AND CALL LIGHT WITHIN REACH.
--- NOTE | 2016-05-24 03:28 | NUR ---
PT IN BED WITH HOB UP FOR COMFORT, EYES CLOSED, RESPIRATIONS EVEN AND UNLABORED, 02 @ 2L, BED IN LOWEST POSITION AND CALL LIGHT WITHIN REACH.
[2016-05-24 06:44] LABS: ANION GAP 12.5 mmol/L (8-16); CALCIUM 8.5 mg/dL (8.5-10.1); CARBON DIOXIDE 30.6 mmol/L (21.0-32.0); CREATININE - SERUM 1.5 mg/dL (0.6-1.3); POTASSIUM - SERUM 3.1 mmol/L (3.5-5.1)
[2016-05-24 07:00] VITALS: BP 106/60
--- NOTE | 2016-05-24 08:15 | NUR ---
PT RESTING IN BED WITH EYES OPEN CALL LIGHT IN REACH NO PROBLEMS WILL MONITER
--- NOTE | 2016-05-24 17:58 | NUR ---
PT RESTING IN BED WITH EYES OPEN CALL LIGHT IN REACH NO PROBLEMS WILL MONITER
--- NOTE | 2016-05-24 19:02 | NUR ---
RESTING QUIETLY IN BED CALL CHAS COOPER
--- NOTE | 2016-05-24 19:45 | NUR ---
PT REQUESTED SHOWER. AID ASSISTING.
--- NOTE | 2016-05-24 20:30 | NUR ---
FAMILY TAKING PT OUTSIDE.
--- NOTE | 2016-05-24 21:05 | NUR ---
HS MEDS ADMINISTERED. PT DENIES NEEDS. BED LOW. CL IN REACH.
[2016-05-24 21:35] VITALS: BP 92/42
--- NOTE | 2016-05-25 00:30 | NUR ---
PT RESTING, EYES CLOSED. BED LOW. CL IN REACH.
--- NOTE | 2016-05-25 02:15 | NUR ---
PT SET OFF BED ALARM GETTING UP TO GO TO BR. STAYED IN ROOM UNTIL PT FINISHED AND WAS BACK IN BED. PT DENIES NEEDS. BED LOW. CL IN REACH.
[2016-05-25 07:17] LABS: BASOPHILS 0.2 % (0.0-2.0); EOSINOPHILS 1.8 % (0-7); HEMATOCRIT 36.3 % (42.0-54.0); IMMATURE GRANULOCYTES 0.2 % (0-5); LYMPHOCYTES 12.6 % (15-50); MCH 22.7 pg (26.0-34.0); MCHC 30.3 g/dL (31.0-37.0); MCV 74.8 fL (80.0-100.0); MONOCYTES 13.5 % (2-11); NEUTROPHILS 71.7 % (40-80); PLATELET COUNT 215 10x3/uL (130-400); RBC 4.85 10x6/uL (4.20-6.10); RDW 20.4 % (11.5-14.5); WBC 8.6 10x3/uL (4.8-10.8)
[2016-05-25 07:29] LABS: ANION GAP 10.8 mmol/L (8-16); CALCIUM 9.2 mg/dL (8.5-10.1); CARBON DIOXIDE 32.5 mmol/L (21.0-32.0); CREATININE - SERUM 1.5 mg/dL (0.6-1.3); POTASSIUM - SERUM 3.3 mmol/L (3.5-5.1)
--- NOTE | 2016-05-25 08:15 | NUR ---
PT ON SIDE OF BED EATING BREAKFAST TOLERATING WELL WILL MONITER
[2016-05-25 09:19] VITALS: BP 113/70
--- NOTE | 2016-05-25 13:30 | NUR ---
SITTING UP ON SIDE OF BED.CL IN REACH.
--- NOTE | 2016-05-25 14:00 | NUR ---
PT RESTING IN BED WITH EYES OPEN CALL LIGHT IN REACH NO PROBLEMS WILL MONITER
[2016-05-25 19:07] VITALS: BP 126/74
--- NOTE | 2016-05-25 19:25 | NUR ---
OFF UNIT VIA W/C, ACCOMPANIED BY .
--- NOTE | 2016-05-25 20:00 | NUR ---
IN SHOWER WITH 'S ASSIST.
--- NOTE | 2016-05-25 22:00 | NUR ---
FOUND PATIENT ATTEMPTING OOB. CAUGHT HIM JUST BEFORE BED ALARM SOUNDED. ASSISTED PATIENT UP TO BR TO URINATE. CHANGED BRIEF DUE TO TRACE PRIOR INCONTINENCE, AND THEN RETURNED HIM TO BED. ASSESSMENT AND HS MEDS WERE THEN COMPLETED.
--- NOTE | 2016-05-26 00:10 | NUR ---
RESTING QUIETLY, EYES CLOSED.
--- NOTE | 2016-05-26 02:10 | NUR ---
RESTING IN BED ON RIGHT SIDE, COVERS OFF. OFFERED TO COOL THE ROOM OFF ABOUT AN HOUR AGO BUT PATIENT DECLINED.
--- NOTE | 2016-05-26 04:40 | NUR ---
RESTING IN BED, EYES CLOSED.RESPIRING QUIETLY.
--- NOTE | 2016-05-26 06:00 | NUR ---
RESTING QUIETLY, EYES CLOSED.
--- NOTE | 2016-05-26 07:00 | NUR ---
PT WAS RECEIVED IN BED AWAKE AND ORIENTED ONLY TO SELF. CONFUSED TO TIME, PLACE AND SITUATION. VITAL SIGNS; TEMP. 98.6, PULSE 89, RESP. 14, B/P 95/59, 02SAT. 98%. 02 PER NC GOING AT 2L/MIN. ZAROXOLYN WAS HELD THIS AM. IS AT BEDSIDE. NO COMPLAINTS AT THIS TIME. WILL BE MONITORING HIM AND ASSISTING PRN. BED ALARM DEVICE ON AND WORKING PROPERLY.
[2016-05-26 07:29] LABS: CARBON DIOXIDE 33.4 mmol/L (21.0-32.0); CREATININE - SERUM 1.5 mg/dL (0.6-1.3); POTASSIUM - SERUM 3.4 mmol/L (3.5-5.1)
[2016-05-26 10:10] VITALS: BP 95/59
--- NOTE | 2016-05-26 13:51 | NUR ---
Nutrition Follow Up: Pt appeared confused at the time of RD visit. He reported that his appetite is good and he is drinking the Ensure. Pt is eating 81% meal avg on a regular diet. He is receiving vanilla Ensure TID. +BM 05/25/16. Labs reviewed - BUN, Cr, Glucose elevated. Meds noted including Megace, Januvia, Lasix, Humalog. Will change diet to diabetic due to elevated glucose. Will continue to send vanilla Ensure as family was very specific that pt prefers this. Rec continue Megace. RD will continue to monitor pt progress.
--- NOTE | 2016-05-26 14:49 | NUR ---
PT'S DIET WAS CHANGED TO DIABETIC DUE TO GLUCOSE ELEVATING. PT HAS BEEN STANDING UP OUT OF BED ALL DAY LONG. BED ALARM SOUNDS AND PT IS AMBULATING TO THE BATHROOM. HE IS QUICK ON HIS FEET. TRYING TO MONITOR HIM CLOSELY AND ASSIST TO THE BATHROOM.
--- NOTE | 2016-05-26 18:40 | NUR ---
PT IS RESTING IN BED ON LEFT SIDE. WATCHING TV. CALL LIGHT IN REACH. STABLE CONDITION OBSERVED.
--- NOTE | 2016-05-26 19:05 | NUR ---
SITTING UP ON BEDSIDE, EATING DINNER.
--- NOTE | 2016-05-26 21:45 | NUR ---
RESTING IN BED, EYES CLOSED.
[2016-05-26 21:50] VITALS: BP 130/70
--- NOTE | 2016-05-26 22:50 | NUR ---
ASSESSMENT AND HS MEDS COMPLETE. SAYS DOES NOT NEED TO TOILET AT THIS TIME.
--- NOTE | 2016-05-26 23:45 | NUR ---
AWAKE AFTER RECENT ASSIST UP TO BR AND BACK. DENIES NEEDS.
--- NOTE | 2016-05-27 00:40 | NUR ---
ATTEMPTED OOB WITH BED ALARM SOUNDING. ASKED HIM IF HE NEEDED TO TOILET. PATIENT REPLIED, "NO, I NEED TO MAKE A PHONE CALL." WAS AWAKE WATCHING TV AND LOOKING AT HIS CELLPHONE ABOUT 0015 WHEN I WAS IN HIS ROOM LAST. ENCOURAGED HIM AT THAT TIME TO TRY TO SLEEP AND REMINDED HIM OF THE HOUR.
--- NOTE | 2016-05-27 02:10 | NUR ---
RESTING IN BED, EYES CLOSED AT PRESENT. RECENTLY ASSISTED PATIENT UP TO BR TO URINATE AFTER HE WAS STOPPED FROM EXITING THE BED WHEN SHE WALKED BY HIS ROOM. BED ALARM REMAINS ARMED WITH 0 DELAY SETTING, BUT PATIENT IS ABLE TO EXIT THE BED VERY FAST AND IS A GREAT CONCERN DESPITE HIS BED ALARM. HAS ATTEMPTED OOB X5 SO FAR TONIGHT.
--- NOTE | 2016-05-27 04:40 | NUR ---
RESTING IN BED, EYS CLOSED.
[2016-05-27 06:20] LABS: BASOPHILS 0.2 % (0.0-2.0); EOSINOPHILS 1.6 % (0-7); HEMATOCRIT 34.4 % (42.0-54.0); HEMOGLOBIN 10.3 g/dL (13.5-17.5); IMMATURE GRANULOCYTES 0.3 % (0-5); LYMPHOCYTES 12.5 % (15-50); MCH 22.5 pg (26.0-34.0); MCHC 29.9 g/dL (31.0-37.0); MCV 75.3 fL (80.0-100.0); MONOCYTES 12.2 % (2-11); NEUTROPHILS 73.2 % (40-80); PLATELET COUNT 237 10x3/uL (130-400); RBC 4.57 10x6/uL (4.20-6.10); RDW 20.5 % (11.5-14.5); WBC 9.2 10x3/uL (4.8-10.8)
--- NOTE | 2016-05-27 06:30 | NUR ---
REMAINS IN BED, DOZING AFTER RECEIVING SCHEDULED MEDS. DECLINED OFFER TO ASSIST HIM UP TO BR. FSBS 136.
[2016-05-27 06:58] LABS: ANION GAP 12.2 mmol/L (8-16); CALCIUM 8.9 mg/dL (8.5-10.1); CARBON DIOXIDE 30.4 mmol/L (21.0-32.0); CREATININE - SERUM 1.4 mg/dL (0.6-1.3); POTASSIUM - SERUM 3.6 mmol/L (3.5-5.1)
--- NOTE | 2016-05-27 07:00 | NUR ---
INTRODUCED SELF TO PT, ASSIST PT TO BATHROOM AND BACK TO BED WITH MINIMAL ASSISTANCE, WILL CONTINUE TO MONITOR, CALL LIGHT WITHIN REACH.
--- NOTE | 2016-05-27 09:53 | NUR ---
MORNING MEDICATION GIVEN, PT TOLERATED WELL, PT STATES NO PAIN AT THIS TIME, WILL CONTINUE TO MONITOR, CALL LIGHT WITHIN REACH.
[2016-05-27 10:23] VITALS: BP 114/64
--- NOTE | 2016-05-27 12:28 | NUR ---
PT UP IN CHAIR EATING LUNCH, STATES WANTS TO TAKE HOME, DR DUKE NOTIFIED, WILL CONTINUE TO MONITOR, CALL LIGHT WITHIN REACH.
--- NOTE | 2016-05-27 12:30 | NUR ---
I DISCUSSED WITH PTS ABOUT HOME WC, WALKER, ETC. SHE STATED HE HAD ALL THE NEEDED EQUIPMENT ALREADY AT HOME, AND DID NOT NEED ANYTHING ORDERED.
--- NOTE | 2016-05-28 16:02 | NUR ---
PATIENT DISCHRGED HOME PER REQUEST, ATTEMPTED TO CALL TO CHECK ON PATIENT BUT NO ANWSER.
== END 2016-05-27 13:10 | disposition home or self-care (01) | DRG 191 ==
LOC: D.REHAB 21:50
PROVIDERS: Psychiatry & Neurology Neurology; ADMIT Emergency Medicine
DX: J44.1 Chronic obstructive pulmonary disease with (acute) exacerbation (principal); J90 Pleural effusion, not elsewhere classified; J98.11 Atelectasis; I50.32 Chronic diastolic (congestive) heart failure; I13.0 Hypertensive heart and chronic kidney disease with heart failure and stage 1 through stage 4 chronic kidney disease, or unspecified chronic kidney disease; I82.509 Chronic embolism and thrombosis of unspecified deep veins of unspecified lower extremity; N18.9 Chronic kidney disease, unspecified; R60.0 Localized edema; I48.2 Chronic atrial fibrillation; E11.22 Type 2 diabetes mellitus with diabetic chronic kidney disease; G62.9 Polyneuropathy, unspecified; G47.33 Obstructive sleep apnea (adult) (pediatric)

== ENCOUNTER → 2017-06-14 11:49 | Outpatient (CLI) | payer MEDICARE ==
[~2017-06-14] VITALS: Ht 175.3 cm; Wt 86.4 kg
--- NOTE | ~2017-06-14 | HEMODYNAMI ---
PATIENT:YINKA SANDHU MEDICAL RECORD: [id number] : 43 LOCATION:[facility] ADMISSION DATE: 06/14/17 Generatedon:06/14/201715:58 Patient name: YINKA SANDHU Patient #: [id number] SSN: [id number] : 1945 Date of study: 06/14/2017 Page: Of Hemodynamic Procedure Report Patient Data Patient Demographics Procedure consent was obtained First Name: YINKA Gender: Male Last Name: PHOEBE : 1945 Middle Initial: ANASTASIA Age: 71 year(s) Patient #: [id number] Race: SSN: [id number] Additional ID: [id number] Contact details Address: [address] [place] [address] State: [place] City: [place] Zip code: [address] Past Medical History Allergies Allergen Reaction Date Comments Reported Other allergy 06/14/2017 VERSED Admission Admission Data Admission Date: 06/14/2017 Admission Time: 11:49 Height (in.): 5.9 BSA: 0.34 (m2) Height (cm.): 14.99 BMI: 3877.89 (kg/m2) Weight (lbs.): 192 Weight (kg.): 87.09 Lab Results Lab Result Date: 06/14/2017 Lab Result Time: 0:00 Biochemistry Name Units Result Min Max BUN mg/dl 33 --(----)-* 7 18 Creatinine mg/dl 1.6 --(----)-* 0.6 1.3 CBC Name Units Result Min Max Hemoglobin g/dl 14.8 --(-*--)-- 13.5 17.5 Procedure Procedure Types Cath Procedure Diagnostic Procedure C [facility] w/Coronaries w/Grafts Sedation Charges Moderate Sedation up to 15 minutes PCI Procedure Coronary Stent AMI/SVG/STATIONARY STEAM ENGINEER PTCA or Stent SVG-BMS/JANICE Initial Procedure Description Procedure Date Procedure Date: 06/14/2017 Procedure Start Time: 15:22 Procedure End Time: 15:56 Procedure Staff Name Function Neo Capellan MD Performing Physician Álvaro Syed RT Scrub [facility] RT Monitor Andreina Diaz RN Nurse Blake Wright RT Monitor Procedure Data Cath Procedure Fluoroscopy Diagnostic fluoroscopy Total fluoroscopy Time: 7.4 time: 7.4 min min Diagnostic fluoroscopy Total fluoroscopy dose: dose: 1066 mGy 1066 mGy Contrast Material Contrast Material Type Amount (ml) Isovue 300 122 Entry Location Entry Primary Successful Side Size Upsize Upsize Entry Closure Succes sful Closure Location (Fr) 1 (Fr) 2 (Fr) Remarks Device Remarks Femoral Right 5 Fr 6 Fr Exoseal artery Short Estimated blood loss: 10 ml Diagnostic catheters Device Type Used For End Catheter Placement MULTIPACK JL 4.0 5Fr Procedure catheter MULTIPACK 3DRC 5Fr Procedure catheter DIAGNOSTIC AR MOD 5Fr Procedure Catheter ([id number]) DIAGNOSTIC IMT 5Fr Procedure Catheter ([id number]) MULTIPACK Pigtail 5 Fr Procedure catheter Procedure Complications No complications Procedure Medications Medication Administration Route Dosage Oxygen etCO2 Nasal cannula 2 l/min Heparin Flush Bag added to field 2 bags (1000units/500ml NS) 0.9% NaCl I.V. 100 ml/hr Fentanyl I.V. 50 mcg Fentanyl I.V. 50 mcg Fentanyl I.V. 50 mcg Fentanyl I.V. 50 mcg Heparin Bolus I.V. 8500 units Hemodynamics Rest BSA: 0.34 (m2) HGB: 14.8 (g/dl) O2 Consumption: Estimated: 39.73 (ml/min) O2 Con sumption indexed: Estimated:116.85 (ml/min/m) Heart Rate: 74 (bpm) Pressure Samples Time Site Value (mmHg) Purpose Heart Use Rate(bpm) 15:37 LV 126/39,35 Snapshot 101 Gradients Valve Time Site Site Mean SEP/DFP Peak To Heart Use 1 2 (mmHg) (sec/min) Peak Rate (mmHg) (bpm) Aortic 15:38 LV AO 95 Snapshots Pre Cath Intra NCS Post Cath Vital Signs Time Heart Resp SPO2 etCO2 NIBP (mmHg) Rhythm Pain Sedation Rate (ipm) (%) (mmHg) Status Level (bpm) 14:57:23 76 15 100 0 128/78(108) NSR 0 (11) 10(A) , No pain 15:01:59 73 17 100 0 121/82(109) NSR 0 (11) 10(A) , No pain 15:06:36 74 16 99 0 125/81(108) NSR 0 (11) 10(A) , No pain 15:11:14 74 16 92 0 125/76(109) NSR 0 (11) 9(A) , No pain 15:15:51 75 16 100 29.3 126/81(102) NSR 0 (11) 9(A) , No pain 15:20:28 77 15 93 42.8 122/84(98) NSR 0 (11) 9(A) , No pain 15:25:02 79 16 96 22.5 134/83(115) NSR 0 (11) 9(A) , No pain 15:30:03 90 15 85 32.3 120/94(103) NSR 0 (11) 9(A) , No pain 15:34:35 87 17 85 36.8 134/93(108) NSR 0 (11) 9(A) , No pain 15:39:14 84 15 90 24.8 130/88(101) NSR 0 (11) 9(A) , No pain 15:43:47 86 17 94 11.2 115/91(103) NSR 0 (11) 9(A) , No pain 15:48:21 85 17 96 3.7 118/77(105) NSR 0 (11) 9(A) , No pain 15:52:55 85 17 98 0 132/80(98) NSR 0 (11) 9(A) , No pain Medications Time Medication Route Dose Verified Delivered Reason Notes Effectiveness by by 14:56:19 Oxygen etCO2 2 Neo Monty Per physician Nasal l/min Timi Munguia RN cannula 14:56:28 Heparin Flush added 2 Neo Monty used for Bag to bags Timi Munguia RN procedure (1000units/500ml field NS) 14:56:38 0.9% NaCl I.V. 100 Neo Monty Per physician ml/hr Timi Munguia RN 15:07:19 Fentanyl I.V. 50 Neo Monty for sedation mcg Timi Munguia RN 15:14:09 Fentanyl I.V. 50 Neo Monty for sedation mcg Timi Munguia RN 15:23:27 Fentanyl I.V. 50 Neo Monty for sedation belen Munguia RN 15:27:26 Fentanyl I.V. 50 Neo Millan for sedation [facility] Timi Munguia RN 15:44:44 Heparin Bolus I.V. 8500 eNo Millan for units Timi Munguia RN anticoagulation Procedure Log Time Note 14:28:08 Time tracking: Regular hours (M-F 7:00 - 5:00) 14:28:12 Plan of Care:Hemodynamics will remain stable., Cardiac rhythm will remain stable., Comfort level will be maintained., Respiratory function will remain adequate., Patient/ family verbilizes understanding of procedure., Procedure tolerated without complication., Recovers from procedure without complications.. 14:28:13 Signed procedure consent form obtained from patient. 14:28:23 H&P Date Dictated: 05/17/2017 Within 30 days and on chart., H&P Addendum completed by physician on day of procedure. (MUST COMPLETE FOR ALL OUTPATIENTS). 14:30:59 Patient Height : 5.9 inches 14:31:03 Patient Weight : 192 lbs 14:36:43 Álvaro PLATA(R) sent for patient. Start room use. 14:38:41 Lab Result : BUN 33 mg/dl 14:38:41 Lab Result : Hemoglobin 14.8 g/dl 14:38:41 Lab Result : Creatinine 1.6 mg/dl 14:48:24 Patient received from Pre/Post Procedure Room to CCL 1 Alert and oriented. Tansferred to table in Supine position. 14:48:26 Warm blankets applied, and мария hugger turned on for patient comfort. 14:48:26 Correct patient and procedure confirmed by team. 14:48:32 ECG and BP/O2 sat monitors applied to patient. 14:56:19 Oxygen 2 l/min etCO2 Nasal cannula was administered by Monty Munguia RN; Per physician; 14:56:28 Heparin Flush Bag (1000units/500ml NS) 2 bags added to field was administered by Monty Munguia RN; used for procedure; 14:56:33 Vital chart was started 14:56:36 Baseline sample Acquired. 14:56:38 0.9% NaCl 100 ml/hr I.V. was administered by Monty Munguia RN; Per physician; 14:56:38 Rhythm: sinus rhythm 14:56:40 Full Disclosure recording started 14:56:41 Pre-procedure instructions explained to patient. 14:56:41 Pre-op teaching completed and patient verbalized understanding. 14:56:43 Family in patients room. 14:56:44 Patient NPO since Midnight. 14:56:56 Patient allergic to Other allergyVERSED 14:57:06 Is the patient allergic to Iodine/contrast media? No. 14:57:08 Is patient on blood thinner?Yes 14:57:11 ACC The patient was administered the following blood thiners within the last 24 hours: ACCPlavix 14:57:14 Patient diabetic? Yes. 14:57:15 If diabetic: On Metformin? No 14:57:32 Previous problem with sedation/anesthesia? Yes DOES NOT DO WELL WITH VERSED 14:57:34 Snore? Yes 14:57:38 Sleep apnea? No 14:57:40 Deviated septum? No 14:57:41 Opens mouth fully? Yes 14:57:44 Sticks out tongue? Yes 14:58:22 Airway obstruction? Yes WEARS OXYGEN WHEN NEEDED 14:58:31 Dentures? Yes TOP DENTURES IN 14:58:36 Pre procedure: right dorsailis pedis pulse 2+ Normal; easily identifiable; not easily obliterated 14:58:41 Patient pain scale 0/10 ?. 14:58:49 IV patent on arrival in left wrist with 0.9% NaCl at KVO. 14:58:51 Lab results completed and on chart. 14:58:54 Right groin area was prepped with chlora-prep and draped in sterile fashion 14:58:55 Alarms reviewed by R. N. 14:58:55 Sharps counted by scrub and verified by R.N. 14:58:56 Sharps counted by scrub and verified by R.N. 14:59:10 Use device set Femoral Dx 14:59:12 ACIST Syringe (68166) opened to sterile field. 14:59:12 Bag Decanter (2001S) opened to sterile field. 14:59:14 ACIST Hand Control (56100) opened to sterile field. 14:59:14 ACIST Manifold (41766) opened to sterile field. 14:59:15 Tegaderm 4 x 4 (1626W) opened to sterile field. 14:59:17 Medline Cath Pack ([id number]) opened to sterile field. 14:59:19 DIAGNOSTIC WIRE .035 260cm J wire (563667) opened to sterile field. 14:59:21 DIAGNOSTIC Multipack 5Fr catheter set (KH6570) opened to sterile field. 14:59:22 SHEATH Prelude 5Fr 0.035 (TGA-2H-83-035) opened to sterile field. 15:04:15 --------ALL STOP TIME OUT------ 15::15 Final Timeout: patient, procedure, and site verified with staff and physician. All members of the team are in agreement. 15:04:17 Right groin site verified by team. 15:04:19 Physical assessment completed. ASA score P 2 - A patient with mild systemic disease as per Neo Capellan MD. 15:04:22 Sedation plan: IV Moderate Sedation Medication:Versed, Fentanyl 15:07:19 Fentanyl 50 mcg I.V. was administered by Monty Munguia RN; for sedation; 15:14:09 Fentanyl 50 mcg I.V. was administered by Monty Munguia RN; for sedation; 15:22:08 Zero performed for pressure channel P1 15:22:16 Procedure started. 15:22:22 Local anesthetic to right femoral artery with Lidocaine 2% by Neo Capellan MD.INITIAL ACCESS ONLY 15:23:27 Fentanyl 50 mcg I.V. was administered by Monty Munguia RN; for sedation; 15:23:53 A 5 Fr sheath was inserted into the Right Femoral artery 15:24:31 A MULTIPACK JL 4.0 5Fr catheter was advanced over the wire and used for Procedure. 15:25:30 LCA angiography performed. 15:25:37 Catheter exchanged over wire. 15:26:01 A MULTIPACK 3DRC 5Fr catheter was advanced over the wire and used for Procedure. 15:26:49 RCA angiography performed. 15:27:15 Catheter exchanged over wire. 15:27:20 A DIAGNOSTIC AR MOD 5Fr Catheter (770330W) was advanced over the wire and used for Procedure. 15:27:26 Fentanyl 50 mcg I.V. was administered by Monty Munguia RN; for sedation; 15:28:27 SVG to RCA angiography performed. 15:30:03 SVG to Diag, Circ, and Om angiography performed 15:30:53 Catheter exchanged over wire. 15:31:53 A DIAGNOSTIC IMT 5Fr Catheter ([id number]) was advanced over the wire and used for Procedure. 15:33:35 GLIDE WIRE ANGLE 260cm (DC3306) opened to sterile field. 15:33:55 GLIDEWIRE USED TO ADVANCE IMT TO ZHANG 15:35:05 ZHANG to LAD angiography performed. 15:35:25 Catheter exchanged over wire. 15:36:02 INFLATOR Merit BasixCompak (ZD6540) opened to sterile field. 15:36:17 SHEATH 6FR [place] (BHB254) opened to sterile field. 15:36:42 A MULTIPACK Pigtail 5 Fr catheter was advanced over the wire and used for Procedure. 15:36:50 Injector settings: Ml/sec: 10, Volume: 20, 15:36:53 LV gram done using ZIMMERMAN 15:36:53 LV hemodynamics recorded. 15:37:22 Zero performed for pressure channel P1 15:38:28 EF : 30 % 15:38:34 TUBING High Pressure Extension Tubing (Capellan) (IJ6965E) opened to sterile field. 15:39:13 BMW 300cm [place] 2 J wire (7326764N) opened to sterile field. 15:39:52 Catheter removed. 15:40:00 Sheath upsized to a 6 Fr Short. 15:40:38 GUIDE 6FR AR 1.0 SH catheter ([id number]) opened to sterile field. 15:40:47 6 Fr AR 1 SH guide catheter was inserted over the wire 15:42:59 BMW wire advanced. 15:44:44 Heparin Bolus 8500 units I.V. was administered by Monty Munguia RN; for anticoagulation; 15:45:49 Wire advanced across lesion. 15:46:24 Place stent Inflation Number: 1 A YUMIKO OTW 3.5 x 15 stent ([id number]) was prepped and advanced across the Aorta Left -> 1st Diag. The stent was deployed at 16 BONI for 0:10 (min:sec). 15:47:44 Stent catheter was removed intact over wire. 15:48:26 Wire removed. 15:48:26 Guide catheter removed. 15:48:47 EXOSEAL 6Fr (EX600) opened to sterile field. 15:49:23 Sheath removed intact; hemostasis achieved with Exoseal to the Right Femoral artery. 15:49:25 Procedure ended.(Physican Out) 15:50:02 Fluoroscopy time 07.40 minutes. 15:50:09 Flurop Dose total: 1066 15:50:09 Fluoroscopy dose: 1066 mGy 15:50:18 Contrast amount:Isovue 300 122ml. 15:50:59 Sharps counted by scrub and verified by R.N. 15:51:00 Insertion/operative site no bleeding no hematoma. 15:51:10 Post-op/insertion site Right Femoral artery dressed using a 4 x 4 and Tegaderm. 15:51:13 Post right femoral artery:stable, soft, clean and dry 15:51:15 Post Procedure Pulses reassessed and unchanged 15:51:18 Post-procedure physical assessment completed. ASA score P 2 - A patient with mild systemic disease as per Neo Capellan MD. 15:51:22 Post procedure rhythm: unchanged. 15:51:26 Estimated blood loss: 10 ml 15:51:27 Post procedure instruction explained to patient.Patient verbalizes understanding. 15:51:28 Patient needs reinforcement of post procedure teaching. 15:51:43 Procedure type changed to Cath procedure, Diagnostic procedure, LHC, LHC w/Coronaries w/Grafts, Sedation Charges, Moderate Sedation up to 15 minutes, PCI procedure, Coronary Stent, AMI/SVG/STATIONARY STEAM ENGINEER PTCA or Stent, SVG-BMS/JANICE Initial 15:56:38 Procedure and supply charges have been captured, reviewed, submitted and are correct. 15:56:41 Procedure Complication : No complications 15:56:43 Vital chart was stopped 15:56:44 See physician's report for complete and final results. 15:56:46 Report given to Pre/Post Procedure Room. 15:56:48 Patient transfered to Pre/Post Procedure Room with Stretcher. 15:56:50 Procedure ended. 15:56:50 Full Disclosure recording stopped 15:56:57 End room use (Document Last) Intervention Summary Intervention Notes Time ActionType Lesion and Equipment Action# Pressure Duration Attributes Used 15:46:24 Place stent Aorta Left YUMIKO OTW 3.5 1 16 00:10 -> 1st Diag x 15 stent ([id number]) Device Usage Item Name Manufacture Quantity Catalog Number Hospital Part Current Minimal Lot# / Charge Number Stock Stock Serial# Code ACIST Syringe Acist 1 69725 [id number] 524548 818414 20 (54663) Medical [employer] Inc Bag Decanter Microtek 1 2001S 912282 98962 365746 5 (2001S) Medical Inc. ACIST Hand Acist 1 22684 735174 554343 861177 5 Control (51740) Medical Systems Inc ACIST Manifold Acist 1 34989 131116 214319 730270 5 (44202) Medical Systems Inc Tegaderm 4 x 4 3M 1 1626W 158437 964825 653686 5 (1626W) Medline Cath Cardinal 1 [id number] 441689 14255 615042 5 Pack Health ([id number]) DIAGNOSTIC WIRE [facility] [place] 1 409704 859956 705898 510881 30 .035 260cm J wire (416152) DIAGNOSTIC Cardinal 1 OG4626 754241 52010 393211 30 Multipack 5Fr Health catheter set (VU0771) SHEATH Prelude Merit 1 ALG-5K-96-035 438137 312844 621074 5 5Fr 0.035 Medical (HPB-5Q-63-035) MULTIPACK JL Cardinal 1 741746 5 4.0 5Fr Health catheter MULTIPACK 3DRC Cardinal 1 955729 5 5Fr catheter Health DIAGNOSTIC AR Cardinal 1 759907L 681502 249125 131837 15 MOD 5Fr Health Catheter (524860E) DIAGNOSTIC IMT [place] 1 [id number] 518372 918909 74152 5 5Fr Catheter Scientific ([id number]) GLIDE WIRE Terumo 1 ZK6265 656295 901501 537102 5 ANGLE 260cm (PF9021) INFLATOR Merit Merit 1 AZ5423 217732 987626 095610 15 BasixComnj3DVista Medical (OI6540) SHEATH 6FR Terumo 1 JRM800 551360 108790 399791 40 [place] (MAQ438) MULTIPACK Cardinal 1 150248 5 Pigtail 5 Fr Health catheter TUBING High Merit 1 [id number] 846872 95443 418210 10 Pressure Medical Extension Tubing (Capellan) (BD1771L) BMW 300cm Clifford 1 [id number] 334848 253869 526212 5 [place] 2 J Vascular wire (7499430Q) GUIDE 6FR AR Medtronic 1 [id number] 038355 49759 425366 1 1.0 SH catheter (QU2FC43IQ) YUMIKO OTW 3.5 x Medtronic 1 [id number] 230953 3083337 062871 5 [id number] 15 stent ([id number]) EXOSEAL 6Fr Cardinal 1 EX600 554908 306640 175902 10 (EX600) Health Signature Audit [place] Stage Time Signature Unsigned Intra-Procedure 06/14/2017 Blake Wright 3:58:56 PM RT(R) Signatures Monitor : Claudia Amin Signature : RT Date : Time : Monitor : Blake Wright RT Signature : Date : Time : [place] [id number] [facility] [place] [address]
[~2017-06-14 11:49] MED LIST changes: +ALDACTONE25 MG PO; +ATARAX 25 MG TA25 MG PO; +AZELASTINE137 MCG/0. NASAL; +CARAFATE1 G PO; +CYMBALTA60 MG PO; +FLINTSTONE1 TAB.CHEW PO; +FLUTICASONE PRO16 GM NASAL; +GLIMEPIRIDE4 MG PO; +LANTUS INSULIN10 ML SC; +METOLAZONE2.5 MG PO; +SALINE FLUSH10 ML IV; +VITAMIN B650 MG PO
[2017-06-14 12:49] VITALS: BP 105/66; Ht 175.3 cm; Wt 86.4 kg
[2017-06-14 12:51] LABS: BASOPHILS 0.4 % (0-2); EOSINOPHILS 2.1 % (0-7); HEMATOCRIT 43.5 % (42.0-54.0); HEMOGLOBIN 14.8 g/dL (13.5-17.5); IMMATURE GRANULOCYTES 0.2 % (0-5); LYMPHOCYTES 18.4 % (15-50); MCH 30.8 pg (26.0-34.0); MCV 90.4 fL (80.0-100.0); MEAN PLATELET VOLUME 10.7 fL (7.4-10.4); MONOCYTES 9.9 % (2-11); PLATELET COUNT 218 10x3/uL (130-400); RBC 4.81 10x6/uL (4.20-6.10); RDW 13.9 % (11.5-14.5); WBC 8.5 10x3/uL (4.8-10.8)
[2017-06-14 13:06] LABS: ANION GAP 15.9 mmol/L (8-16); CARBON DIOXIDE 21.8 mmol/L (21.0-32.0); CREATININE - SERUM 1.6 mg/dL (0.6-1.3); POTASSIUM - SERUM 4.7 mmol/L (3.5-5.1)
== END | disposition home or self-care (01) ==
LOC: D.CATH 11:49
PROVIDERS: Internal Medicine Cardiovascular Disease
DX: I25.719 Atherosclerosis of autologous vein coronary artery bypass graft(s) with unspecified angina pectoris (principal); I25.119 Atherosclerotic heart disease of native coronary artery with unspecified angina pectoris; Z01.812 Encounter for preprocedural laboratory examination
CPT/HCPCS: 93459; C9604

== ENCOUNTER → 2017-08-30 10:59 | Outpatient (CLI) | payer MEDICARE ==
[2017-06-14 12:49] VITALS: BMI 28.1
== END | disposition home or self-care (01) ==
LOC: D.RT 10:59
DX: J90 Pleural effusion, not elsewhere classified (principal); J45.909 Unspecified asthma, uncomplicated; I26.99 Other pulmonary embolism without acute cor pulmonale

== ENCOUNTER → 2017-09-02 08:15 | Outpatient (CLI) | payer MEDICARE ==
[2017-06-14 12:49] VITALS: BMI 28.1
== END | disposition home or self-care (01) ==
LOC: D.CT 08:15
DX: R79.1 Abnormal coagulation profile (principal)

== ENCOUNTER → 2017-10-04 08:58 | Outpatient (CLI) | payer MEDICARE ==
[2017-06-14 12:49] VITALS: BMI 28.1
--- NOTE | ~2017-10-04 | EC ---
PATIENT:YINKA SANDHU DATE OF SERVICE: 10/04/17 SEX: M MEDICAL RECORD: [id number] DATE OF : 43 LOCATION:[facility] AGE OF PATIENT: 71 ADMISSION DATE: 10/04/17 REFERRING PHYSICIAN: INTERPRETING PHYSICIAN: JANA HERNADEZ MD ECHOCARDIOGRAM REPORT ECHO CHARGES 4 ECHO COMPLETE Date: 10/04 CLINICAL DIAGNOSIS: CAD/HTN/HEART VALVE DISORDER ECHOCARDIOGRAPHIC MEASUREMENTS (adult normal given) AC root (d.<3.7cm) 2.7 cm LV Septum d (<1.2 cm> 1.2 cm Valve Excursion 1.1 cm LV Septum (systole) 1.7 cm Left Atria (s.<4.0cm> 4.7 cm LVPW d(<1.2cm) 1.1 cm RV (d.<2.3cm) 2.9 cm LVPW (sytole) 1.7 cm LV diastole(<5.6CM) 5.5 cm MV E-F(>70mm/sec) cm LV systole 3.7 cm LVOT Diameter 1.8 cm MV exc.(>10mm) cm Est.ejection fraction (50-75%) % DOPPLER: LVIT cm/sec A 84.0 cm/sec E 139 cm/sec LA cm/sec RVSP 50.1 mmHg LVOT 76.0 cm/sec AOP1/2T m/s Asc. Ao 222.0cm/sec RVOT 60.0 cm/sec RA cm/sec PA 96.0 cm/sec AV Gradient Peak 20.0 mmHg AV Mean 11.4 mmHg AV Area 0.9 cm MV Gradient Peak 6.0 mmHg MV Mean 1.4 mmHg MV Area cm COMMENTS: Basketball Scout: Cheryl ARENASOE Aviation Medicine Specialist: Kaveh Hernadez TAPE# PACS Pericardial Effusion N DATE OF SERVICE: 10/04/2017 PROCEDURE: Transthoracic echocardiogram. FINDINGS: 1. This is a technically difficult study and endovascular structures were not well visualized. In fact endocardial structures in the left ventricle are not well determined. Overall, the left ventricular function appears to be preserved. There are no distinct regional wall motion abnormalities. Inflow characteristics are normal. ECHOCARDIOGRAM REPORT [id number] YINKA SANDHU 2. The left atrium appears to be moderately dilated. 3. The right ventricle appears to be fitd-jj-xrlxlhjweq dilated with right ventricular hypertrophy. 4. The aortic valve shown to be thickened and sclerotic. Doppler interrogation shows mild AI and mild aortic stenosis. 5. The mitral valve by color has moderate mitral regurgitation. 6. Tricuspid valve has pzrf-fk-kwnmfykr tricuspid regurgitation. RVSP calculated 50 mmHg. 7. The pulmonic valve has trace pulmonic insufficiency. CONCLUSIONS: The patient has evidence of hypertensive heart disease. This is a difficult study, ejection fraction appears to be near normal. TRANSINT:[id number] Voice Confirmation ID: [id number] DOCUMENT ID: [id number] JANA HERNADEZ MD at 0749 CC: [id number] DICTATION DATE: 10/05/17 0747 TRANSFORMER REPAIRER: 10/05/17 1059 [facility] CLI 10/04/17 [place] [id number] [place] [address]
== END | disposition home or self-care (01) ==
LOC: D.ECHO 08:58
DX: I25.10 Atherosclerotic heart disease of native coronary artery without angina pectoris (principal); I10 Essential (primary) hypertension; I38 Endocarditis, valve unspecified

== ENCOUNTER 2018-03-08 16:16 | Inpatient (IN) | payer MEDICARE ==
[~2018-03-08] VITALS: Ht 175.3 cm; Wt 89.8 kg
--- NOTE | ~2018-03-08 | HEMODYNAMI ---
PATIENT:YINKA SANDHU MEDICAL RECORD: [id number] : 43 LOCATION:[facility] D.2106 ADMISSION DATE: 03/08/18 Generatedon:03/09/201811:58 Patient name: YINKA SANDHU Patient #: [id number] SSN: [id number] : 1945 Date of study: 03/09/2018 Page: Of Hemodynamic Procedure Report Patient Data Patient Demographics Procedure consent was obtained First Name: YINKA Gender: Male Last Name: PHOEBE : 1945 [facility] Initial: ANASTASIA Age: 72 year(s) Patient #: [id number] Race: SSN: [id number] Additional ID: [id number] Contact details [address]: [address] [place] [address] State: [place] City: [place] Zip code: [address] Past Medical History Allergies Allergen Reaction Date Comments Reported Other allergy 06/14/2017 VERSED Other allergy 03/09/2018 VERSED Admission Admission Data Admission Date: 03/08/2018 Admission Time: 16:33 Room #: D.2106 Height (in.): 69 BSA: 2.11 (m2) Height (cm.): 175.26 BMI: 31.07 (kg/m2) Weight (lbs.): 210.43 Weight (kg.): 95.45 Lab Results Lab Result Date: 03/09/2018 Lab Result Time: 0:00 Biochemistry Name Units Result Min Max BUN mg/dl 27 --(----)-* 7 18 Creatinine mg/dl 1.8 --(----)-* 0.6 1.3 CBC Name Units Result Min Max Hemoglobin g/dl 14.6 --(-*--)-- 13.5 17.5 Procedure Procedure Types Cath Procedure Diagnostic Procedure LHC LHC w/Coronaries w/Grafts PCI Procedure AMI/SVG/PICCOLOIST PTCA or Stent SVG-BMS/JANICE Initial Procedure Description Procedure Date Procedure Date: 03/09/2018 Procedure Start Time: 11:25 Procedure End Time: 11:46 Procedure Staff Name Function Himanshu Alicia MD Performing Physician Álvaro Syed RT Monitor Claudia Amin RT Scrub Andreina Diaz RN Nurse Monty Munguia RN Operations Business Partner Procedure Data Cath Procedure Fluoroscopy Diagnostic fluoroscopy Total fluoroscopy Time: 4.7 time: 4.7 min min Diagnostic fluoroscopy Total fluoroscopy dose: 603 dose: 603 mGy mGy Contrast Material Contrast Material Type Amount (ml) Isovue 300 78 Entry Location Entry Primary Successful Side Size Upsize Upsize Entry Closure Succes sful Closure Location (Fr) 1 (Fr) 2 (Fr) Remarks Device Remarks Femoral Right 5 Fr 6 Fr Exoseal artery Short Estimated blood loss: 10 ml Diagnostic catheters Device Type Used For End Catheter Placement MULTIPACK Pigtail 5 Fr Procedure catheter MULTIPACK JL 4.0 5Fr Procedure catheter MULTIPACK 3DRC 5Fr Procedure catheter DIAGNOSTIC AR2 MOD 5 Fr Procedure catheter ([id number]) Procedure Complications No complications Procedure Medications Medication Administration Route Dosage Oxygen etCO2 Nasal cannula 2 l/min Benadryl I.V. 50 mg 0.9% NaCl I.V. 100 ml/hr Fentanyl I.V. 50 mcg Ativan 1 mg Fentanyl I.V. 50 mcg Ativan 1 mg Heparin Bolus I.V. 4000 units Dobutamine I.V. drip 5 mcg/kg/min (500mg/250ml D5W) Hemodynamics Rest BSA: 2.11 (m2) HGB: 14.6 (g/dl) O2 Consumption: Estimated: 251.62 (ml/min) O2 Co nsumption indexed: Estimated:119.25 (ml/min/m) Heart Rate: 81 (bpm) Pressure Samples Time Site Value (mmHg) Purpose Heart Use Rate(bpm) 11:33 AO 106/74(86) Snapshot 80 Snapshots Pre Cath Intra NCS Post Cath Vital Signs Time Heart Resp SPO2 etCO2 NIBP (mmHg) Rhythm Pain Sedation Rate (ipm) (%) (mmHg) Status Level (bpm) 11:04:51 78 16 94 0 110/75(93) NSR 0 (11) 10(A) , No pain 11:09:02 80 15 94 2.2 105/74(92) NSR 0 (11) 10(A) , No pain 11:13:12 60 15 94 4.5 116/76(97) NSR 0 (11) 10(A) , No pain 11:17:26 80 17 96 3 114/77(102) NSR 0 (11) 10(A) , No pain 11:22:23 76 20 94 0 123/80(104) NSR 0 (11) 10(A) , No pain 11:26:37 83 17 94 0 130/81(114) NSR 0 (11) 9(A) , No pain 11:30:45 81 13 93 0 110/80(91) NSR 0 (11) 9(A) , No pain 11:34:53 87 12 92 0 110/84(94) NSR 0 (11) 9(A) , No pain 11:39:03 89 15 91 0 113/78(92) NSR 0 (11) 9(A) , No pain 11:43:13 91 15 91 0 121/79(105) NSR 0 (11) 9(A) , No pain 11:47:33 86 14 92 0 120/55(100) NSR 0 (11) 9(A) , No pain Medications Time Medication Route Dose Verified Delivered Reason Note s Effectiveness by by 11:11:45 Oxygen etCO2 2 l/min Himanshu Hdz used for Nasal Maral Diaz RN procedure cannula 11:11:54 Benadryl I.V. 50 mg Himanshu Hdz used for Maral Diaz RN procedure 11:12:03 0.9% NaCl I.V. 100 ml/hr Himanshu Hdz Per physician Maral Diaz RN 11:20:33 Ativan IV 1 mg Himanshu Hdz Per physician vers ed Maral Diaz RN makes pt confused. 11:20:34 Fentanyl I.V. 50 mcg Himanshu Hdz for sedation Maral Diaz RN 11:26:58 Fentanyl I.V. 50 mcg Himanshu Hdz for sedation Maral Diaz RN 11:27:04 Ativan IV 1 mg Himanshu Hdz Per physician Maral Diaz RN 11:34:58 Heparin I.V. 4000 units Himanshu Hdz for veri fied Bolus Maral Diaz RN anticoagulation with dr alicia 11:38:05 Dobutamine I.V. 5 Himanshu Hdz Per physician (500mg/250ml drip mcg/kg/min Tauth MD Diaz RN D5W) Procedure Log Time Note 10:30:01 Monty Munguia RN sent for patient. Start room use. 10:31:04 Patient Height : 69 inches 10:31:11 Patient Weight : 210.43 lbs 10:31:24 Time tracking: Regular hours (M-F 7:00 - 5:00) 10:31:28 Plan of Care:Hemodynamics will remain stable., Cardiac rhythm will remain stable., Comfort level will be maintained., Respiratory function will remain adequate., Patient/ family verbilizes understanding of procedure., Procedure tolerated without complication., Recovers from procedure without complications.. 10:31:30 Signed procedure consent form obtained from patient. 10:31:32 Diagnostic Cath status Elective 10:31:57 Patient allergic to Other allergyVERSED 10:32:31 Lab Result : Creatinine 1.8 mg/dl 10:32:31 Lab Result : BUN 27 mg/dl 10:32:31 Lab Result : Hemoglobin 14.6 g/dl 10:57:30 Patient received from Med II to CCL 3 Alert and oriented. Tansferred to table in Supine position. 10:57:46 Warm blankets applied, and мария hugger turned on for patient comfort. 10:57:47 Correct patient and procedure confirmed by team. 10:57:49 ECG and BP/O2 sat monitors applied to patient. 11:03:39 Vital chart was started 11:11:45 Oxygen 2 l/min etCO2 Nasal cannula was administered by Andreina Diaz RN; used for procedure; 11:11:45 Baseline sample Acquired. 11:11:49 Rhythm: sinus rhythm 11:11:51 Full Disclosure recording started 11:11:54 Benadryl 50 mg I.V. was administered by Andreina Diaz RN; used for procedure; 11:11:57 H&P Date Dictated: 03/09/2018 Within 30 days and on chart.. 11:11:58 Pre-procedure instructions explained to patient. 11:11:58 Pre-op teaching completed and patient verbalized understanding. 11:12:03 0.9% NaCl 100 ml/hr I.V. was administered by Andreina Diaz RN; Per physician; 11:12:09 Family unavailable. 11:12:11 Patient NPO since Midnight. 11:12:13 Is the patient allergic to Iodine/contrast media? No. 11:12:15 Is patient on blood thinner?Yes 11:12:23 ACC The patient was administered the following blood thiners within the last 24 hours: ACCPlavix 11:12:25 Patient diabetic? Yes. 11:12:34 If diabetic: On Metformin? No 11:12:46 Previous problem with sedation/anesthesia? No ? 11:12:47 Snore? Yes 11:12:48 Sleep apnea? No 11:12:49 Deviated septum? No 11:12:50 Opens mouth fully? Yes 11:12:53 Sticks out tongue? Yes 11:13:00 Airway obstruction? Yes COPD 11:13:13 Dentures? Yes PARTIAL OUT 11:13:16 Pre procedure: right dorsailis pedis pulse 1+ Palpable, but thready & weak; easily obliterated 11:13:19 Patient pain scale 0/10 ?. 11:13:23 IV patent on arrival in left forearm with 0.9% NaCl at KVO. 11:13:25 Lab results completed and on chart. 11:13:30 Right groin area was prepped with chlora-prep and draped in sterile fashion 11:13:31 Alarms reviewed by R. N. 11:13:32 Sharps counted by scrub and verified by R.N. 11:13:37 Use device set Femoral Dx 11:13:38 Tegaderm 4 x 4 (1626W) opened to sterile field. 11:13:39 ACIST Manifold (85699) opened to sterile field. 11:13:40 ACIST Hand Control (72971) opened to sterile field. 11:13:41 ACIST Syringe (63986) opened to sterile field. 11:13:41 Bag Decanter (2002S) opened to sterile field. 11:13:42 Medline Cath Pack ([id number]) opened to sterile field. 11:13:42 DIAGNOSTIC WIRE .035 260cm J wire (130270) opened to sterile field. 11:13:44 DIAGNOSTIC Multipack 5Fr catheter set (CZ2279) opened to sterile field. 11:13:45 SHEATH 5FR Elverta (CGN965) opened to sterile field. 11:13:46 IV Extension Set opened to sterile field. 11:20:12 --------ALL STOP TIME OUT------ 11:20:13 Final Timeout: patient, procedure, and site verified with staff and physician. All members of the team are in agreement. 11:20:15 Right groin site verified by team. 11:20:18 Physical assessment completed. ASA score P 2 - A patient with mild systemic disease as per Himanshu Alicia MD. 11:20:20 Sedation plan: IV Moderate Sedation Medication:Versed, Fentanyl 11::33 Ativan 1 mg IV was administered by Andreina Diaz RN; Per physician; versed makes pt confused. 11:20:34 Fentanyl 50 mcg I.V. was administered by Andreina Diaz RN; for sedation; 11:25:50 Procedure started. 11:25:57 Local anesthetic to right femoral artery with Lidocaine 2% by Himanshu Alicia MD.INITIAL ACCESS ONLY 11:26:36 A 5 Fr sheath was inserted into the Right Femoral artery 11::58 Fentanyl 50 mcg I.V. was administered by Andreina Diaz RN; for sedation; 11:27:04 Ativan 1 mg IV was administered by Andreina iDaz RN; Per physician; 11:27:05 A MULTIPACK Pigtail 5 Fr catheter was advanced over the wire and used for Procedure. 11:27:53 LV angiography performed. 11:27:55 LV gram done using ZIMMERMAN 11:28:01 EF : 30 % 11:28:06 Injector settings: Ml/sec: 7, Volume: 15, 11:28:29 Catheter removed. 11:28:37 A MULTIPACK JL 4.0 5Fr catheter was advanced over the wire and used for Procedure. 11:28:54 LCA angiography performed. 11::55 Catheter removed. 11:29:23 A MULTIPACK 3DRC 5Fr catheter was advanced over the wire and used for Procedure. 11:29:53 ZHANG to LAD angiography performed. 11:30:02 RCA angiography performed. 11:30:18 Catheter removed. 11:30:23 A DIAGNOSTIC AR2 MOD 5 Fr catheter ([id number]) was advanced over the wire and used for Procedure. 11:32:09 SVG to Diag angiography performed. 11:32:22 SKIP GRAFT TO CIRC. 11:32:40 SVG to RCA angiography performed. 11:32:45 Use device set TAU PCI 11:32:46 SHEATH 6FR Elverta (VGD093) opened to sterile field. 11:32:50 INFLATOR Merit Shayna (VV1548) opened to sterile field. 11:32:52 CHOICE PT Extra Support 182cm wire ([id number]) opened to sterile field. 11:33:54 Catheter removed. 11:34:05 Sheath upsized to a 6 Fr Short. 11:34:30 GUIDE 6FR AR 2.0 SH catheter ([id number]) opened to sterile field. 11:34:58 Heparin Bolus 4000 units I.V. was administered by Andreina Diaz RN; for anticoagulation; verified with dr alicia 11:34:59 6 Fr AR 2 SH guide catheter was inserted over the wire 11:35:33 CPTXS wire advanced. 11:36:16 Wire advanced across lesion. 11:37:34 Inflate balloon Inflation number: 1 A EUPHORA 4.0 x 15 Balloon ([id number]) was prepped and advanced across the Aorta Left -> Dist CX, then inflated to 21 BONI for 0:10 (min:sec). 11:38:05 Dobutamine (500mg/250ml D5W) 5 mcg/kg/min I.V. drip was administered by Andreina Diaz RN; Per physician; 11:40:15 Balloon removed over the wire. 11:40:27 Place stent Inflation Number: 2 A YUMIKO RX 4.0 x 08 stent ([id number]) was prepped and advanced across the Aorta Left -> Dist CX. The stent was deployed at 23 BONI for 0:10 (min:sec). 11:40:58 Stent catheter was removed intact over wire. 11:40:59 Wire removed. 11:40:59 Guide catheter removed. 11:41:10 Sheath removed intact; hemostasis achieved with Exoseal to the Right Femoral artery. 11:41:11 EXOSEAL 6Fr (EX600) opened to sterile field. 11:41:12 Procedure ended.(Physican Out) 11:42:11 Fluoroscopy time 04.70 minutes. 11:42:15 Fluoroscopy dose: 603 mGy 11:42:15 Flurop Dose total: 603 11:42:26 Contrast amount:Isovue 300 78ml. 11:42:28 Sharps counted by scrub and verified by R.N. 11:44:17 Insertion/operative site no bleeding no hematoma. 11:44:20 Post-op/insertion site Right Femoral artery dressed using a 4 x 4 and Tegaderm. 11:44:21 Post Procedure Pulses reassessed and unchanged 11:44:24 Post-procedure physical assessment completed. ASA score P 2 - A patient with mild systemic disease as per Himanshu Alicia MD. 11:44:27 Post procedure rhythm: unchanged. 11:44:29 Estimated blood loss: 10 ml 11:44:31 Post procedure instruction explained to patient.Patient verbalizes understanding. 11:44:31 Patient needs reinforcement of post procedure teaching. 11:44:49 Procedure type changed to Cath procedure, Diagnostic procedure, LHC, LHC w/Coronaries w/Grafts, PCI procedure, AMI/SVG/PICCOLOIST PTCA or Stent, SVG-BMS/JANICE Initial 11:44:50 Procedure and supply charges have been captured, reviewed, submitted and are correct. 11:44:52 Procedure Complication : No complications 11:46:39 Vital chart was stopped 11:46:40 See physician's report for complete and final results. 11:46:47 Report given to [facility]. 11:46:50 Patient transfered to [facility] with Bed. 11:46:52 Procedure ended. 11:46:52 Full Disclosure recording stopped 11:53:49 pt cont to be drowsy. transport to post cath recovery until more awake. 11:57:49 End room use (Document Last) Intervention Summary Intervention Notes Time ActionType Lesion and Equipment Used Action# Pressure Duration Attributes 11:37:34 Inflate Aorta Left EUPHORA 4.0 x 1 21 00:10 balloon -> Dist CX 15 Balloon ([id number]) 11:40:27 Place stent Aorta Left YUMIKO RX 4.0 x 2 23 00:10 -> Dist CX 08 stent ([id number]) Device Usage Item Name Manufacture Quantity Catalog Number Hospital Part Current M inimal Lot# / Charge Number Stock Stock Serial# Code Tegaderm 4 x 4 3M 1 1626W [id number] 286159 [id number] 5 (1626W) ACIST Manifold Acist 1 70917 041793 715505 803191 5 (74600) Medical Systems Inc ACIST Hand Acist 1 81619 788466 779980 149921 5 Control Medical (24132) Systems Inc ACIST Syringe Acist 1 97034 406983 587723 494370 2 0 (65101) Medical Systems Inc Bag Decanter Microtek 1 052524 25279 576508 5 () Medical Inc. Medline Cath Medline 1 [id number] 678396 01811 093943 5 Pack ([id number]) DIAGNOSTIC St Luan 1 673218 795647 880259 591430 3 0 WIRE .035 260cm J wire (694632) DIAGNOSTIC Cardinal 1 DO9412 971500 37854 211001 3 0 Multipack 5Fr Health catheter set (FP4699) SHEATH 5FR Terumo 1 SUO501 986900 824700 770641 5 Elverta (OIN433) MULTIPACK Cardinal 1 918516 5 Pigtail 5 Fr Health catheter MULTIPACK JL Cardinal 1 237587 5 4.0 5Fr Health catheter MULTIPACK 3DRC Cardinal 1 807588 5 5Fr catheter Health DIAGNOSTIC AR2 Cardinal 1 [id number] 790443 154063 716482 2 0 MOD 5 Fr Health catheter (584814M) SHEATH 6FR Terumo 1 FOB074 129072 556315 193720 4 0 Elverta (TIG095) INFLATOR Merit Merit 1 OQ9680 852788 648543 526071 1 5 [employer] (NX6875) CHOICE PT Basco 1 [id number] 062519 830968 166430 5 Extra Support Scientific 182cm wire ([id number]) GUIDE 6FR AR Medtronic 1 [id number] 887432 12285 263854 1 2.0 SH catheter (TG1ND0HS) EUPHORA 4.0 x Medtronic 1 [id number] 572283 237527 783548 5 [id number] 15 Balloon ([id number]) YUMIKO RX 4.0 x Medtronic 1 [id number] 534670 0411167 401651 5 [id number] 08 stent ([id number]) EXOSEAL 6Fr Cardinal 1 EX600 405755 352470 156802 1 0 (EX600) Health IV Extension Hospira 1 85495-16 704059 16645 689495 5 Set Signature Audit [place] Stage Time Signature Unsigned Intra-Procedure 03/09/2018 Álvaro Syed 11:58:46 AM RT(R) Signatures Monitor : Álvaro Syed RT Signature : Date : Time : [address] [place] [address]
[2018-03-08] MEDS ORDERED: ALDACTONE25 MG PO (17:21)
[2018-03-08] MEDS ORDERED: ASPIRIN81 MG PO (17:23)
[2018-03-08] MEDS ORDERED: LASIX40 MG PO (17:26)
[2018-03-08] MEDS ORDERED: K-TAB10 MEQ PO (17:27)
[2018-03-08] MEDS ORDERED: BASAGLAR K100 UNIT/1 SC ×3 (17:29→17:32)
[2018-03-08 17:56] VITALS: BP 135/83; BMI 31.0
[2018-03-08 18:31] LABS: BASOPHILS 0.4 % (0-2); EOSINOPHILS 3.5 % (0-7); HEMATOCRIT 45.2 % (42.0-54.0); HEMOGLOBIN 14.6 g/dL (13.5-17.5); IMMATURE GRANULOCYTES 0.2 % (0-5); LYMPHOCYTES 14.9 % (15-50); MCHC 32.3 g/dL (31.0-37.0); MCV 86.8 fL (80.0-100.0); PLATELET COUNT 217 10x3/uL (130-400); RBC 5.21 10x6/uL (4.20-6.10); RDW 16.3 % (11.5-14.5); WBC 8.5 10x3/uL (4.8-10.8)
[2018-03-08 18:50] LABS: ALBUMIN 3.1 g/dL (3.4-5.0); ANION GAP 14.8 mmol/L (8-16); BILIRUBIN - TOTAL 0.69 mg/dL (0.2-1.3); CALCIUM 8.9 mg/dL (8.5-10.1); CARBON DIOXIDE 25.4 mmol/L (21.0-32.0); CREATININE - SERUM 1.8 mg/dL (0.6-1.3); POTASSIUM - SERUM 4.2 mmol/L (3.5-5.1); PROTEIN - SERUM 7.8 g/dL (6.4-8.2)
[2018-03-08 20:00] VITALS: BP 114/71
--- NOTE | 2018-03-08 21:30 | NUR ---
AWAKE,ALERT.RESP EVEN AND UNALBORED. O2 @ 2L PER NC ON. NO DISTESS NOTED. SL STARTED TO RIGHT HAND X 2 STICKS WITH 22 G. TOLERATED WELL. UP AD NATAN TO BR. CL IN REACH
[2018-03-09] VITALS: BP 112/75
[2018-03-09 04:00] VITALS: BP 108/65
--- NOTE | 2018-03-09 07:15 | NUR ---
REC'D IN BED AWAKE AND ALERT. RESP EVEN AND UNLABORED WITH NO DISTRESS NOTED. CAN EXPRESS NEEDS AND WANTS. NO C/O NO COLLEEN OR VOICED. ASSESSMENT COMPLETED. C/L IN REACH AT BEDSIDE.
--- NOTE | 2018-03-09 08:09 | NUR ---
REC'D SITTING ON SIDE OF BED AWAKE AND ALERT. RESP EVEN AND UNLABORED WITH NO DISTRESS NOTED. CAN EXPRESS NEEDS AND WANTS WANTS. ASSESSMENT COMPLETED. C/L IN REACH AT BEDSIDE.
[2018-03-09 08:58] VITALS: BP 103/74
--- NOTE | 2018-03-09 11:00 | NUR ---
RESTING QUIETLY. RESP WITH EASE. NO DISTRESS NOR COMPLAINTS WILL CONTINUE WITH POC
--- NOTE | 2018-03-09 12:20 | NUR ---
6L SIMPLE MASK WITH NO RESP DISTRESS. RIGHT GROIN 6F EXOSEAL CDI, NO BLEEDING OR HEMATOMA NOTED. NO C/O NAUSEA OR PAIN. VSS. WILL CONTINUE TO MONITOR CLOSELY.
--- NOTE | 2018-03-09 12:50 | NUR ---
2L SIMPLE MASK WITH NO RESP DISTRESS. RIGHT GROIN 6F EXOSEAL CDI, NO BLEEDING OR HEMATOAM NOTED. VSS. WILL CONTINUE TO MONITOR.
--- NOTE | 2018-03-09 13:30 | NUR ---
TRANSFERRED VIA BED BACK TO ROOM 2106. RIGHT GROIN 6F EXOSEAL CDI, NO BLEEDING OR HEMATOMA NOTED. VSS.
[2018-03-09 14:47] VITALS: BMI 31.0
[2018-03-09 15:46] VITALS: Ht 175.3 cm; Wt 89.8 kg
[2018-03-09 15:55] VITALS: BP 125/62
[2018-03-09 20:00] VITALS: BP 123/72
--- NOTE | 2018-03-09 20:00 | NUR ---
RESUMING PT CARE. PT IS LAYING IN BED WITH EYES CLOSED RESTING COMFORTABLY. BED IN LOW POSITION WITH CALL LIGHT IN REACH. SIDE RAILS UP X 2. WILL CONTINUE TO MONITOR PT AND FOLLOW PLAN OF CARE.
[2018-03-09 22:17] VITALS: BP 123/72
[2018-03-10] VITALS (7 sets, daily range): BP systolic 98–129; BP diastolic 63–74
[2018-03-10 09:18] LABS: BASOPHILS 0.4 % (0-2); EOSINOPHILS 3.4 % (0-7); HEMATOCRIT 43.7 % (42.0-54.0); HEMOGLOBIN 14.1 g/dL (13.5-17.5); IMMATURE GRANULOCYTES 0.1 % (0-5); LYMPHOCYTES 14.9 % (15-50); MCH 27.9 pg (26.0-34.0); MCHC 32.3 g/dL (31.0-37.0); MCV 86.5 fL (80.0-100.0); MEAN PLATELET VOLUME 11.3 fL (7.4-10.4); MONOCYTES 12.9 % (2-11); NEUTROPHILS 68.3 % (40-80); PLATELET COUNT 220 10x3/uL (130-400); RBC 5.05 10x6/uL (4.20-6.10); RDW 16.4 % (11.5-14.5)
[2018-03-10 09:39] LABS: ANION GAP 16.1 mmol/L (8-16); BILIRUBIN - TOTAL 0.73 mg/dL (0.2-1.3); CARBON DIOXIDE 25.8 mmol/L (21.0-32.0); CREATININE - SERUM 1.9 mg/dL (0.6-1.3); POTASSIUM - SERUM 3.9 mmol/L (3.5-5.1); PROTEIN - SERUM 7.6 g/dL (6.4-8.2)
--- NOTE | 2018-03-10 20:19 | NUR ---
REST IN BED, CALL LIGHT IN REACH.
[2018-03-11] VITALS (7 sets, daily range): BP systolic 92–119; BP diastolic 57–76
--- NOTE | 2018-03-11 03:07 | NUR ---
REST IN BED, CALL LIGHT IN REACH.
--- NOTE | 2018-03-11 07:10 | NUR ---
REPORT RECIEVED FROM CRAB CATCHER. PATIENT LAYING ON BACK WITH HOB ELEVATED 30 DEGREES. EYES CLOSED AND PATIENT BREATHING EVENLY. SR UP X 2 BED IN LOW PSOTION CAN CALL LIGHT IN REACH. WILL CONTINUE WITH PLAN OF CARE.
--- NOTE | 2018-03-11 10:00 | NUR ---
PATIENT SITTING UP IN BED WATCHING TV. VS GOOD. PATIENT DENIES ANY NEEDS OR PAIN. WILL CONTINUE TO MONITOR. SR UP X 2 BED IN LOW POSITION AND CALL LAIGHT IN REACH.
[2018-03-11 10:32] LABS: BASOPHILS 0.6 % (0-2); EOSINOPHILS 3.4 % (0-7); HEMATOCRIT 41.8 % (42.0-54.0); HEMOGLOBIN 13.4 g/dL (13.5-17.5); IMMATURE GRANULOCYTES 0.1 % (0-5); LYMPHOCYTES 15.4 % (15-50); MCH 27.5 pg (26.0-34.0); MCHC 32.1 g/dL (31.0-37.0); MCV 85.7 fL (80.0-100.0); MEAN PLATELET VOLUME 11.3 fL (7.4-10.4); MONOCYTES 13.2 % (2-11); NEUTROPHILS 67.3 % (40-80); PLATELET COUNT 212 10x3/uL (130-400); RBC 4.88 10x6/uL (4.20-6.10); RDW 16.3 % (11.5-14.5); WBC 6.8 10x3/uL (4.8-10.8)
[2018-03-11 10:34] LABS: ANION GAP 14.7 mmol/L (8-16); CALCIUM 8.6 mg/dL (8.5-10.1); CARBON DIOXIDE 26.7 mmol/L (21.0-32.0); CREATININE - SERUM 1.9 mg/dL (0.6-1.3); POTASSIUM - SERUM 3.4 mmol/L (3.5-5.1)
--- NOTE | 2018-03-11 11:45 | NUR ---
PATIENT IS UNCHANGED. AT BEDSIDE. WILL CONTINUE TO MONITOR.
--- NOTE | 2018-03-11 12:11 | CN ---
PATIENT NAME:YINKA SANDHU MEDICAL RECORD: [id number] : 43 LOCATION:D.M2 D.2106 ADMIT DATE: 03/08/18 ACCOUNT: [id number] CONSULTING PHYSICIAN: AMRIT VILLALBA MD REFERRING PHYSICIAN: MATEUSZ FAN MD DATE OF CONSULTATION: 03/09/2018 DIAGNOSES: 1. Congestive heart failure. 2. Pulmonary edema. 3. Shortness of breath. 4. Angina. 5. Coronary artery disease. 6. Status post coronary artery bypass graft surgery. 7. COPD. 8. Smoking history. 9. Hypertension. 10. Hyperlipidemia. HISTORY OF PRESENT ILLNESS: This is a gentleman known to us with a past history of coronary artery disease, status post coronary artery bypass graft surgery, hypertension, hyperlipidemia, who presents with increasing chest pressure and shortness of breath for the past few weeks. His last evaluation from an ischemic standpoint was in 2018, the stress test was abnormal; however, we continued medical management at that time with 40 of Lasix. We will see an IV on him and then we will cath him later, but we will get that done as soon as possible. PHYSICAL EXAMINATION: GENERAL APPEARANCE: Well-nourished, well-developed, appears stated age. Level of distress, comfortable. PSYCHIATRIC: Mental status, alert, normal affect. Orientation, oriented to time, place and person. EYES: Lids and conjunctiva, noninjected. No discharge, no pallor. ENT: Lips, teeth, gums, normal dentition. Oropharynx, no cyanosis, no pallor. NECK: Carotid arteries, bilateral normal upstroke, no bruits, no thrills. JUGULAR VEINS: No jugular venous pressure or distention. CERVICAL LYMPH NODES: Nontender, nonenlarged. THYROID: Not enlarged. Nontender. No nodules. LUNGS: Respiratory effort, unlabored. CHEST: Normal curvature. No thoracic deformity. No chest wall tenderness. Percussion, resonant. Auscultation, clear. No wheezes, no rales, no rhonchi. CARDIOVASCULAR: Precordial exam, nondisplaced. No heaves or pericardial thrills. Rate and rhythm, regular. Heart sounds, normal S1, normal S2. No S3, no gallop, no rub. Systolic murmur, not heard. Diastolic murmur, not heard. EXTREMITIES: No cyanosis, no edema. Peripheral pulses, full and equal in all extremities, except as noted. No bruits appreciated. ABDOMEN: Soft, nondistended. Normal aorta. No bruit. Nontender. No masses. Liver, nontender, no hepatomegaly. Spleen, nontender, no splenomegaly. MUSCULOSKELETAL: No joint tenderness. No joint swelling. No erythema. NEUROLOGICAL: Normal gait, normal strength, normal tone. SKIN: Warm and dry. OVERALL IMPRESSION: Pulmonary edema, shortness of breath in association with angina, most likely has hemodynamically significant coronary artery disease CONSULT REPORT [id number] YINKA SANDHU and/or graft failure. We will proceed with coronary angiography. Further care depends upon findings of the angiography. TRANSINT:[id number] Voice Confirmation ID: [id number] DOCUMENT ID: [id number] AMRIT VILLALBA MD at 1211 CC: [id number] DICTATION DATE: 03/09/18 0837 CERTIFIED PERSONAL FINANCE COUNSELOR: 03/09/18 1136 ADM IN [place] [id number] [place] [id number]
--- NOTE | 2018-03-11 12:11 | EC ---
PATIENT:YINKA SANDHU DATE OF SERVICE: 03/08/18 SEX: M MEDICAL RECORD: [id number] DATE OF : 43 LOCATION:D.M2 D.210 AGE OF PATIENT: 72 ADMISSION DATE: 03/08/18 REFERRING PHYSICIAN: INTERPRETING PHYSICIAN: AMRIT ALICIA MD ECHOCARDIOGRAM REPORT ECHO CHARGES 4 ECHO COMPLETE Date: 03/09/18 CLINICAL DIAGNOSIS: CP ECHOCARDIOGRAPHIC MEASUREMENTS (adult normal given) AC root (d.<3.7cm) 2.8 cm LV Septum d (<1.2 cm> 1.1 cm Valve Excursion 1.2 cm LV Septum (systole) 1.6 cm Left Atria (s.<4.0cm> 4.2 cm LVPW d(<1.2cm) 1.0 cm RV (d.<2.3cm) 3.2 cm LVPW (sytole) 1.6 cm LV diastole(<5.6CM) 6.0 cm MV E-F(>70mm/sec) cm LV systole 4.8 cm LVOT Diameter 1.9 cm MV exc.(>10mm) cm Est.ejection fraction (50-75%) % DOPPLER: LVIT cm/sec A 60 cm/sec E 98 cm/sec LA cm/sec RVSP 24.7 mmHg LVOT 170 cm/sec AOP1/2T m/s Asc. Ao 203 cm/sec RVOT 66 cm/sec RA cm/sec PA 107 cm/sec AV Gradient Peak 16.6 mmHg AV Mean 10.5 mmHg AV Area 1.0 cm MV Gradient Peak 6.1 mmHg MV Mean 2.8 mmHg MV Area cm COMMENTS: Appeals Assistant: Obie [facility] Glaze Handler: 1 Dr. Alicia TAPE# PACS Pericardial Effusion N DATE OF SERVICE: 03/09/2018 PROCEDURE: Echocardiogram. FINDINGS: 1. Left ventricular chamber size is mildly dilated. Left ventricular systolic function is preserved. Overall ejection fraction estimated at 50%. 2. Left atrium is enlarged at 4.2 cm. Right atrium and right ventricle chamber sizes are as well mildly dilated. 3. Valvular structures have normal structure and motion. ECHOCARDIOGRAM REPORT [id number] YINKA SANDHU 4. Doppler interrogation reveals mild aortic insufficiency, mild mitral regurgitation, mild tricuspid regurgitation, no other valvular insufficiency or stenosis. Pulmonary systolic pressure is estimated at 25 mmHg. 5. No evidence of pericardial effusion or left ventricular thrombus. TRANSINT:[id number] Voice Confirmation ID: [id number] DOCUMENT ID: [id number] AMRIT ALICIA MD at 1211 CC: [id number] DICTATION DATE: 03/09/18 1607 SNAGGER: 03/10/18 0045 ADM IN [facility] [address] [place] [id number]
--- NOTE | 2018-03-11 12:11 | OP ---
PATIENT NAME: YINKA SANDHU MEDICAL RECORD: [id number] :43 LOCATION:D.M2 D.2106 ADMISSION DATE:03/08/18 SURGEON: AMRIT VILLALBA MD DATE OF OPERATION: 03/09/2018 DATE OF SERVICE: 03/09/2018 PROCEDURES: 1. PTCA stent vein graft to left circumflex. 2. Left heart catheterization. 3. Selective coronary angiography. 4. Vein graft angiography. 5. ZHANG angiography. 6. Left ventriculogram. INDICATION: Angina and coronary artery disease, heart failure and cardiomyopathy. DESCRIPTION OF PROCEDURE: After informed consent was obtained and after detailed description of risks, benefits as well as alternative therapies, the patient elected to proceed with angiogram and angioplasty. The right femoral area was prepped and draped in normal sterile fashion. Right femoral artery was cannulated via modified Seldinger technique with placement of 6-Lao sheath. All catheters exchanged through this sheath. FINDINGS: The left ventriculogram was performed in standard 30-degree ZIMMERMAN view, reveals global hypokinesis throughout all segments. Overall ejection fraction estimated at 30%. SELECTIVE CORONARY ANGIOGRAPHY: 1. Left main is with no significant angiographic disease. 2. Left anterior descending is totally occluded. 3. Left circumflex is 99% stenosed. 4. Right coronary is 99% stenosed. 6. The ZHANG to the LAD is widely patent. Distal LAD is widely patent. 7. Vein graft skipping from LAD diagonal to the left circumflex is patent; however, there is previously placed stent at the proximal portion of this with greater than 80% in-stent restenosis. 8. Vein graft to the right coronary is patent. Distal right coronary is patent. PTCA STENT OF THE VEIN GRAFT TO THE CIRCUMFLEX: The stent used is 4.0 x 9 mm Sterling taken to 23 atmospheres. Result was 0% residual stenosis. OVERALL IMPRESSION: Successful percutaneous transluminal coronary angioplasty stent of the vein graft to the right coronary artery with 80% in-stent restenosis to 0% residual stenosis. TRANSINT:[id number] Voice Confirmation ID: [id number] DOCUMENT ID: [id number] OPERATIVE REPORT [id number] YINKA SANDHU AMRIT VILLALBA MD at 121 CC: [id number] DICTATION DATE: 03/09/18 1147 HIGH DENSITY PRESS LABORER: 03/09/18 1209 ADM IN [facility] [address] [id number]
--- NOTE | 2018-03-11 14:09 | NUR ---
PATIENT LAYING IN BED WITH EYES CLOSED AND BREATHING EVENLY.L SR UP X 2 BED IN LOW POSITION AND CALL LIGHT IN REACH.
--- NOTE | 2018-03-11 19:33 | MORECARE ---
CASE MANAGEMENT DISCHARGE SUMMARY PATIENT: YINKA SANDHU UNIT: [id number] ADM DATE: 03/08/18 AGE: 72 : 44 SEX: M ROOM/BED: D.2106 AUTHOR: MAGALIS,DOC PHYSICIAN: REFERRING PHYSICIAN: MATEUSZ FAN MD DATE OF SERVICE: 03/11/18 Discharge Plan Patient Name: YINKA SANDHU Facility: [facility]:[place] : 1945 Planned Disposition: Home Anticipated Discharge Date: 03/12/18 Discharge Date: Expected LOS: 4 Initial Reviewer: [id number] Initial Review Date: 03/11/2018 Generated: 03/11/18 8:33 pm Comments DCP- Discharge Planning Updated by [id number]: Marin Horton on 03/11/18 6:[address] Patient Name: YINKA SANDHU Admission Status: Urgent Accout number: [id number] Admission Date: 03-08-2018 : 1945 Admission Diagnosis:CHEST PAIN, UNSPECIFIED Attending: MATEUSZ FAN Current LOS: 3 Anticipated DC Date: 03-12-2018 Planned Disposition: Home Primary Insurance: MEDICARE A & B Discharge Planning Comments: CM MET WITH PT IN ROOM TO DISCUSS DISCHARGE PLANNING AND NEEDS. PT REPORTS LIVING AT HOME DEPENDENT ON SPOUSE WHO IS A NURSE AND ASSISTS WITH MEDICATION MANAGEMENT AT HOME. PT HAS OXYGEN AT NIGHT AND NEBULIZER FROM UNKNOWN MEDICAL EQUIPMENT PROVIDER AND NO OUTSIDE SERVICES ASSISTING IN THE HOME. CM DISCUSSED AVAILABILITY OF HOME HEALTH, REHAB SERVICES AND MEDICAL EQUIPMENT. PT DENIES DISCHARGE NEEDS, REPORTS HIS WILL PICK HIM UP FOR DISCHARGE HOME. IMPORTANT MESSAGE FROM MEDICARE PROVIDED AND EXPLAINED. PT PLANS TO DISCHARGE HOME WITH SPOUSE, HAS NO ANTICIPATED DISCHARGE NEEDS AT THIS TIME. CM TO FOLLOW AND ASSIST IF NEEDED. Master Motorcycle Technician: Marin Horton DCPIA - Discharge Planning Initial Assessment Updated by [id number]: Marin Horton on 03/11/18 7:30 pm * Is the patient Alert and Oriented? Yes * How many steps to enter\exit or inside your home? NONE * PCP DR SMITH * Pharmacy [facility] * Preadmission Environment Home with Family * ADLs Partial Dependent * Partial ADLs (Assistance needed) Medication Management * Equipment Nebulizer Oxygen Wheelchair * Other Equipment HOME OXYGEN ONLY - UNKNOWN PROVIDER * List name and contact numbers for known caregivers / representatives who currently or will assist patient after discharge: EDUARDO SANDHU, SPOUSE, * Verbal permission to speak to the caregivers and representatives has been obtained from the patient. Yes * Community resources currently utilized None * Please name any agencies selected above. NONE * Additional services required to return to the preadmission environment? No * Can the patient safely return to the preadmission environment? Yes * Has this patient been hospitalized within the prior 30 days at any hospital? No Coverage Notice Reviewer: [id number] Eb Horton Notice Issued Date-Time: 03/11/2018 13:40 Notice Type: IM Discharge Notice Notice Delivered To: Patient Relationship to Patient: Psychologist Engineering Name: Delivery Method: HAND - Hand Delivered Divya Days: Prior Verbal Notification: Recipient Understood Notice: Yes Recipient Signature: Yes Med Rec Note Co-signed by Attending: Coverage Notice Comment: Patient Name: YINKA SANDHU Page [phone] at 1933 All edits/amendments must be made on the electronic document DICTATION DATE: 03/11/181931 AIRDOX FITTER: LUIS 03/11/181931 RPT#: [id number] DC DATE: STATUS: ADM IN [facility] [address] [place] [address] END OF REPORT
--- NOTE | 2018-03-11 19:34 | NUR ---
EVENING ROUNDS COMPLETED. PT SITTING ON TOILET WITH EYES OPEN, RR EVEN AND UNLABORED. NO S/S OF DISTRESS NOTED. CALL LIGHT BESIDE BED. WILL CTM.
--- NOTE | 2018-03-12 02:26 | NUR ---
PT SITTING UP IN BED WITH EYES OPEN, RR EVEN AND UNLABORED. BED IN LOW POSITION. SIDE RAILS UP X2. DOBUTAMINE INFUSING ORDERED THROUGH LEFT HAND PIV. NO S/S OF DISTRESS NOTED. CALL LIGHT IN REACH. WILL CTM.
[2018-03-12 04:00] VITALS: BP 103/49
--- NOTE | 2018-03-12 05:28 | NUR ---
RESTING IN BED WITH EYES CLOSED. NO S/S OF DISTRESS OBSERVED. WILL CONT. POC.
--- NOTE | 2018-03-12 05:41 | NUR ---
RESTING IN BED WITH EYES CLOSED. NO S/S OF DISTRESS OBSERVED, WILL CONT. POC.
--- NOTE | 2018-03-12 08:18 | NUR ---
PATIENT IS RESTING QUIETLY AT THIS TIME. LIGHTS OFF.
[2018-03-12 09:00] VITALS: BP 110/60
[2018-03-12 09:08] LABS: BASOPHILS 0.3 % (0-2); EOSINOPHILS 2.7 % (0-7); HEMATOCRIT 42.4 % (42.0-54.0); HEMOGLOBIN 13.6 g/dL (13.5-17.5); IMMATURE GRANULOCYTES 0.3 % (0-5); LYMPHOCYTES 10.4 % (15-50); MCH 27.5 pg (26.0-34.0); MCHC 32.1 g/dL (31.0-37.0); MCV 85.8 fL (80.0-100.0); MEAN PLATELET VOLUME 11.1 fL (7.4-10.4); MONOCYTES 10.6 % (2-11); NEUTROPHILS 75.7 % (40-80); PLATELET COUNT 220 10x3/uL (130-400); RBC 4.94 10x6/uL (4.20-6.10); RDW 16.4 % (11.5-14.5); WBC 7.9 10x3/uL (4.8-10.8)
[2018-03-12 09:13] LABS: CALCIUM 8.6 mg/dL (8.5-10.1); CARBON DIOXIDE 24.8 mmol/L (21.0-32.0); CREATININE - SERUM 1.9 mg/dL (0.6-1.3); POTASSIUM - SERUM 3.8 mmol/L (3.5-5.1)
[2018-03-12 09:40] VITALS: BP 110/60
--- NOTE | 2018-03-12 09:46 | NUR ---
UP ADLIB IN ROOM. IV PATENT. GAIT STEADY.
--- NOTE | 2018-03-12 10:45 | NUR ---
WAITING FOR TO BRING PATIENT OWN MED FROM HOME. CALLED AND CONFERMED WITH PHARMACY.
[2018-03-12] MEDS ORDERED: OMNICEF300 MG PO (11:11)
--- NOTE | 2018-03-12 15:10 | NUR ---
PATIENT HAS BEEN DISCHARGED. HE HAS BEEN BROUGHT DOWNSTAIRS BY WHEEL CHAIR TO GO HOME WITH HIS . IV REMOVED FROM LEFT HAND WITH CATHETER INTACT. PATIENT HAS REPORTED OCCATIONAL NOSE BLEEDS. ALL PATIENT BELONGINGS HAVE BEEN REMOVED FROM THE ROOM. DISCHARGE TEACHING HAS BEEN DONE AND SIGNED. PATIENT IS AWARE OF FOLLOW UP APPOINTMENTS.
--- NOTE | 2018-03-14 09:01 | MORECARE ---
CASE MANAGEMENT DISCHARGE SUMMARY PATIENT: YINKA SANDHU UNIT: [id number] ADM DATE: 03/08/18 AGE: 72 : 44 SEX: M ROOM/BED: D.2106 AUTHOR: MAGALIS,DOC PHYSICIAN: REFERRING PHYSICIAN: MATEUSZ FAN MD DATE OF SERVICE: 03/14/18 Discharge Plan Patient Name: YINKA SANDHU Facility: [facility]:[place] : 1945 Planned Disposition: Home Anticipated Discharge Date: 03/12/18 Discharge Date: 03/12/2018 Expected LOS: 4 Initial Reviewer: [id number] Initial Review Date: 03/11/2018 Generated: 03/14/18 10:01 am Comments DCP- Discharge Planning Updated by [id number]: Marin Horton on 03/11/18 6:[address] Patient Name: YINKA SANDHU Admission Status: Urgent Accout number: [id number] Admission Date: 03-08-2018 : 1945 Admission Diagnosis:CHEST PAIN, UNSPECIFIED Attending: MATEUSZ FAN Current LOS: 3 Anticipated DC Date: 03-12-2018 Planned Disposition: Home Primary Insurance: MEDICARE A & B Discharge Planning Comments: CM MET WITH PT IN ROOM TO DISCUSS DISCHARGE PLANNING AND NEEDS. PT REPORTS LIVING AT HOME DEPENDENT ON SPOUSE WHO IS A NURSE AND ASSISTS WITH MEDICATION MANAGEMENT AT HOME. PT HAS OXYGEN AT NIGHT AND NEBULIZER FROM UNKNOWN MEDICAL EQUIPMENT PROVIDER AND NO OUTSIDE SERVICES ASSISTING IN THE HOME. CM DISCUSSED AVAILABILITY OF HOME HEALTH, REHAB SERVICES AND MEDICAL EQUIPMENT. PT DENIES DISCHARGE NEEDS, REPORTS HIS WILL PICK HIM UP FOR DISCHARGE HOME. IMPORTANT MESSAGE FROM MEDICARE PROVIDED AND EXPLAINED. PT PLANS TO DISCHARGE HOME WITH SPOUSE, HAS NO ANTICIPATED DISCHARGE NEEDS AT THIS TIME. CM TO FOLLOW AND ASSIST IF NEEDED. Facing Baster Jumpbasting: Marin Horton DCPIA - Discharge Planning Initial Assessment Updated by [id number]: Marin Horton on 03/11/18 7:30 pm * Is the patient Alert and Oriented? Yes * How many steps to enter\exit or inside your home? NONE * PCP DR SMITH * [facility] * Preadmission Environment Home with Family * ADLs Partial Dependent * Partial ADLs (Assistance needed) Medication Management * Equipment Nebulizer Oxygen Wheelchair * Other Equipment HOME OXYGEN ONLY - UNKNOWN PROVIDER * List name and contact numbers for known caregivers / representatives who currently or will assist patient after discharge: EDUARDO SANDHU, SPOUSE, * Verbal permission to speak to the caregivers and representatives has been obtained from the patient. Yes * Community resources currently utilized None * Please name any agencies selected above. NONE * Additional services required to return to the preadmission environment? No * Can the patient safely return to the preadmission environment? Yes * Has this patient been hospitalized within the prior 30 days at any hospital? No Coverage Notice Reviewer: [id number] Eb Horton Notice Issued Date-Time: 03/11/2018 13:40 Notice Type: IM Discharge Notice Notice Delivered To: Patient Relationship to Patient: Ultimate Hoops Referee Name: Delivery Method: HAND - Hand Delivered Divya Days: Prior Verbal Notification: Recipient Understood Notice: Yes Recipient Signature: Yes Med Rec Note Co-signed by Attending: Coverage Notice Comment: Last DP export: 03/11/18 6:33 pm Patient Name: YINKA SANDHU Page [phone] at 0901 All edits/amendments must be made on the electronic document DICTATION DATE: 03/14/18899 TECHNICAL PRODUCER: LUIS 03/14/18899 RPT#: [id number] DC DATE:03/12/18 STATUS: DIS IN [facility] [address] [place] [address] END OF REPORT
== END 2018-03-12 15:14 | disposition home or self-care (01) | DRG 246 ==
LOC: D.M2 16:16
PROVIDERS: Internal Medicine; Internal Medicine Interventional Cardiology; ADMIT Internal Medicine Nephrology
PROC: B2121ZZ Fluoroscopy of Single Coronary Artery Bypass Graft using Low Osmolar Contrast (ICD-10-PCS; 2018-03-09)
PROC: B2111ZZ Fluoroscopy of Multiple Coronary Arteries using Low Osmolar Contrast (ICD-10-PCS; 2018-03-09)
PROC: B2181ZZ Fluoroscopy of Left Internal Mammary Bypass Graft using Low Osmolar Contrast (ICD-10-PCS; 2018-03-09)
PROC: B2151ZZ Fluoroscopy of Left Heart using Low Osmolar Contrast (ICD-10-PCS; 2018-03-09)
PROC: 027034Z Dilation of Coronary Artery, One Artery with Drug-eluting Intraluminal Device, Percutaneous Approach (ICD-10-PCS; principal; 2018-03-09 10:30)
PROC: 4A023N7 Measurement of Cardiac Sampling and Pressure, Left Heart, Percutaneous Approach (ICD-10-PCS; 2018-03-09 10:30)
DX: I25.119 Atherosclerotic heart disease of native coronary artery with unspecified angina pectoris (principal); I50.23 Acute on chronic systolic (congestive) heart failure; J18.9 Pneumonia, unspecified organism; J96.21 Acute and chronic respiratory failure with hypoxia; T82.855A Stenosis of coronary artery stent, initial encounter; J98.11 Atelectasis; I13.0 Hypertensive heart and chronic kidney disease with heart failure and stage 1 through stage 4 chronic kidney disease, or unspecified chronic kidney disease; Y83.8 Other surgical procedures as the cause of abnormal reaction of the patient, or of later complication, without mention of misadventure at the time of the procedure; I42.9 Cardiomyopathy, unspecified; Z79.01 Long term (current) use of anticoagulants; J20.9 Acute bronchitis, unspecified; I27.20 Pulmonary hypertension, unspecified; K21.9 Gastro-esophageal reflux disease without esophagitis; I48.91 Unspecified atrial fibrillation; E11.22 Type 2 diabetes mellitus with diabetic chronic kidney disease; N18.9 Chronic kidney disease, unspecified; R91.1 Solitary pulmonary nodule; E11.40 Type 2 diabetes mellitus with diabetic neuropathy, unspecified; F03.90 Unspecified dementia, unspecified severity, without behavioral disturbance, psychotic disturbance, mood disturbance, and anxiety; F41.8 Other specified anxiety disorders; E78.5 Hyperlipidemia, unspecified; I08.3 Combined rheumatic disorders of mitral, aortic and tricuspid valves; Z86.718 Personal history of other venous thrombosis and embolism; Z86.711 Personal history of pulmonary embolism; N18.3 Chronic kidney disease, stage 3 (moderate)

== ENCOUNTER → 2018-05-27 10:31 | Outpatient (CLI) | payer MEDICARE ==
[2018-03-09 15:46] VITALS: BMI 31.0
[~2018-05-27 10:31] MED LIST changes: +BASAGLAR K100 UNIT/1 SC; +LASIX40 MG PO; +OMNICEF300 MG PO
== END | disposition home or self-care (01) ==
LOC: D.HCCARDIO 10:31
PROVIDERS: ATTEND Internal Medicine Cardiovascular Disease
DX: I25.10 Atherosclerotic heart disease of native coronary artery without angina pectoris (principal)

== ENCOUNTER 2018-07-14 16:04 | Inpatient (IN) | payer MEDICARE ==
--- NOTE | 2018-07-14 17:53 | NUR ---
RECIEVED FROM DOCTORS OFFICE. ALERT AND ORIENTED. 02 AT 3 L/M PER NC. TELEMERTY SHOWS SR 77. NO NEEDS VOICED
[2018-07-14 18:40] LABS: ANION GAP 15.5 mmol/L (8-16); CALCIUM 8.8 mg/dL (8.5-10.1); CARBON DIOXIDE 26.1 mmol/L (21.0-32.0); CREATININE - SERUM 1.7 mg/dL (0.6-1.3); POTASSIUM - SERUM 4.6 mmol/L (3.5-5.1)
--- NOTE | 2018-07-14 19:30 | NUR ---
RESUMING PATIENT CARE. PATIENT IS ALERT AND ORIENTED, RESTING COMFORTABLY IN BED. RESPIRATIONS ARE EVEN AND UNLABORED. NO S/S OF DISTRESS. NO C/O PAIN. NEEDS MET. CALL LIGHT WITHIN REACH. WILL CPOC.
[2018-07-14 20:00] VITALS: BP 143/84
--- NOTE | 2018-07-14 23:20 | NUR ---
STARTED IV WITH 22 TO LEFT INNER FOREARM
[2018-07-15] VITALS (8 sets, daily range): BP systolic 91–145; BP diastolic 51–84; BMI 31.0
[2018-07-15 06:47] LABS: ANION GAP 14.7 mmol/L (8-16); CALCIUM 8.7 mg/dL (8.5-10.1); CARBON DIOXIDE 25.2 mmol/L (21.0-32.0); CREATININE - SERUM 1.7 mg/dL (0.6-1.3); MAGNESIUM - SERUM 2.2 mg/dL (1.8-2.4); PHOSPHOROUS 3.8 mg/dL (2.5-4.9)
[2018-07-15 06:50] LABS: POTASSIUM - SERUM 3.9 mmol/L (3.5-5.1)
--- NOTE | 2018-07-15 07:27 | NUR ---
REPORT RECEIVED. WILL CONTINUE WITH POC. PT CURRENTLY LYING SEMI FOWLERS. CALL LIGHT W/I REACH. RR EVEN AND UNLABORED ON 3L 02. PT CURRENTLY UNDERGOING RESP TRX. DOBUTAMINE INFUSING @14.3 AND BUMEX INFUSING @10ML/HR VIA L.FOR PIV. WILL STOP BUMEX DRIP AT 0800 PER ORDER. PT DENIES ANY NEEDS AT THIS TIME. NO S/S OF DISTRESS NOTED. WILL CTM.
[2018-07-15 07:53] LABS: BASOPHILS 0.8 % (0-2); EOSINOPHILS 6.5 % (0-7); HEMATOCRIT 43.4 % (42.0-54.0); HEMOGLOBIN 14.2 g/dL (13.5-17.5); LYMPHOCYTES 18.8 % (15-50); MCH 27.8 pg (26.0-34.0); MCHC 32.7 g/dL (31.0-37.0); MCV 84.9 fL (80.0-100.0); MONOCYTES 17.2 % (2-11); NEUTROPHILS 56.7 % (40-80); RBC 5.11 10x6/uL (4.20-6.10); RDW 19.3 % (11.5-14.5); WBC 5.1 10x3/uL (4.8-10.8)
[2018-07-15 07:54] LABS: PLATELET COUNT 130 10x3/uL (130-400)
--- NOTE | 2018-07-15 08:28 | NUR ---
AM MEDICATIONS ADMINISTERED. BUMEX DRIP STOPPED. PT CURRENTLY SITTING ON EDGE OF BED EATING BREAKFAST. WILL CTM.
--- NOTE | 2018-07-15 17:00 | NUR ---
DOBUTAMINE DECREASED TO 2.5MCG/KG/MIN. PT CURRENTLY EATING DINNER. PT DENIES ANY NEEDS. WILL CTM.
--- NOTE | 2018-07-15 17:25 | MORECARE ---
CASE MANAGEMENT DISCHARGE SUMMARY PATIENT: YINKA SANDHU UNIT: [id number] ADM DATE: 07/14/18 AGE: 72 : 44 SEX: M ROOM/BED: D.2121 AUTHOR: SHANICE BLANCAS PHYSICIAN: REFERRING PHYSICIAN: MESFIN RAYO M.D. DATE OF SERVICE: 07/15/18 Discharge Plan Patient Name: YINKA SANDHU Facility: [facility]:[place] : 1945 Planned Disposition: Home Anticipated Discharge Date: 07/15/18 Discharge Date: Expected LOS: 1 Initial Reviewer: [id number] Initial Review Date: 07/15/2018 Generated: 07/15/18 6:24 pm DCPIA - Discharge Planning Initial Assessment Updated by [email or web address]: Marin Horton on 07/15/18 5:21 pm * Is the patient Alert and Oriented? Yes * How many steps to enter\exit or inside your home? NONE * PCP DR. SMITH * [facility] * Preadmission Environment Home with Family * ADLs Partial Dependent * Partial ADLs (Assistance needed) Medication Management * Equipment Nebulizer Oxygen Rolling Walker * Other Equipment WALKER WITH SEAT AND BRAKES HOME OXYGEN FROM UNKNOWN PROVIDER * List name and contact numbers for known caregivers / representatives who currently or will assist patient after discharge: EDUARDO SANDHU, SPOUSE, * Verbal permission to speak to the caregivers and representatives has been obtained from the patient. N/A * Community resources currently utilized None * Please name any agencies selected above. NONE * Additional services required to return to the preadmission environment? No * Can the patient safely return to the preadmission environment? Yes * Has this patient been hospitalized within the prior 30 days at any hospital? No Coverage Notice Reviewer: [id number] - Marin Horton Notice Issued Date-Time: 07/15/2018 12:25 Notice Type: IM Discharge Notice Notice Delivered To: Patient Relationship to Patient: Director Of Content Marketing Name: Delivery Method: HAND - Hand Delivered Divya Days: Prior Verbal Notification: Recipient Understood Notice: Yes Recipient Signature: Yes Med Rec Note Co-signed by Attending: Coverage Notice Comment: Patient Name: YINKA SANDHU Page [phone] at 1725 All edits/amendments must be made on the electronic document DICTATION DATE: 07/15/181723 HAT BLOCK BENCH HAND: LUIS 07/15/181723 RPT#: [id number] DC DATE: STATUS: ADM IN [facility] [address] [place] [address] END OF REPORT
--- NOTE | 2018-07-15 17:32 | MORECARE ---
CASE MANAGEMENT DISCHARGE SUMMARY PATIENT: YINKA SANDHU UNIT: [id number] ADM DATE: 07/14/18 AGE: 72 : 44 SEX: M ROOM/BED: D.9320 AUTHOR: MAGALIS,DOC PHYSICIAN: REFERRING PHYSICIAN: MESFIN RAYO M.D. DATE OF SERVICE: 07/15/18 Discharge Plan Patient Name: YINKA SANDHU Facility: [facility]:[place] : 1945 Planned Disposition: Home Anticipated Discharge Date: 07/15/18 Discharge Date: Expected LOS: 1 Initial Reviewer: [email or web address] Initial Review Date: 07/15/2018 Generated: 07/15/18 6:32 pm Comments DCP- Discharge Planning Updated by [id number]: Marin Horton on 07/15/18 4:[address] Patient Name: YINKA SANDHU Admission Status: Urgent Accout number: [id number] Admission Date: 07-14-2018 : 1945 Admission Diagnosis: Attending: MESFIN RAYO Current LOS: 1 Anticipated DC Date: 07-15-2018 Planned Disposition: Home Primary Insurance: MEDICARE A & B Discharge Planning Comments: CM RECEIVED ORDER FOR OUTPATIENT APPOINTMENT FOR OUTPATIENT PSYCHIATRIC CONSULT. CM MET WITH PT IN ROOM TO DISCUSS DISCHARGE PLANNING AND NEEDS. PT REPORTS LIVING AT HOME WITH HIS WHO ASSISTS WITH MEDICATION MANAGEMENT. PT REPORTS OTHERWISE BEING INDEPENDENT AT HOME. . PT HAS CANE, NEBULIZER, HOME OXYGEN, WALKER WITH SEAT AND BRAKES WELL WHEELCHAIR WITH NO MEDICAL EQUIPMENT PROVIDER PREFERENCE; PT CANNOT REMEMBER WHO PROVIDES HIS OXYGEN. PT HAS NO OUTSIDE SERVICES ASSISTING IN THE HOME. CM DISCUSSED AVAILABILITY OF HOME HEALTH, REHAB SERVICES AND MEDICAL EQUIPMENT. PT DENIES DISCHARGE NEEDS, REPORTS HIS WILL PICK HIM UP FOR DISCHARGE HOME. IMPORTANT MESSAGE FROM MEDICARE PROVIDED AND EXPLAINED. CM DISCUSSED ORDER FOR OUTPATIENT PSYCHIATRIC CONSULT. PT REPORTS HE HAS COMPULSIVELY PICKED AT HIS SKIN SINCE HE WAS A CHILD. PT STATES THAT HIS IS VERY ORGANIZED AND DOES NOT LIKE THE BEHAVIOR AND PT HAS AGREED TO SEE SOMEONE ABOUT THE BEHAVIOR. CM PROVIDED PT WITH INFORMATION TO [facility], WALK IN CLINIC HOURS ARE M- 8:30AM TO 3:30PM AND SATURDAYS 9AM TO 2PM. NO APPOINTMENT IS NECESSARY. ADDRESS AND PHONE NUMBER TO THE FACILITY LOCATED ON THE CARD. PT REPORTS UNDERSTANDING AND REPORTS HIS WILL TAKE HIM AFTER DISCHARGE HOME. PT DENIES FURHTER NEEDS. PT HAS BEEN PROVIDED INFORMATION TO [facility], NO APPOINTMENT NECESSARY AND HE ONLY NEEDS TO SHOW UP DURING CLINIC HOURS: - 8:30AM TO 3:30PM AND SATURDAYS 9AM TO 2PM. [address] [place] [address] [place] [address]; [phone]. Telex Operator: Marin Horton DCPIA - Discharge Planning Initial Assessment Updated by [email or web address]: Marin Horton on 07/15/18 5:30 pm * Is the patient Alert and Oriented? Yes * How many steps to enter\exit or inside your home? NONE * PCP DR. SMITH * [facility] * Preadmission Environment Home with Family * ADLs Partial Dependent * Partial ADLs (Assistance needed) Medication Management * Equipment Cane Nebulizer Oxygen Rolling Walker Walker * Other Equipment WALKER WITH SEAT AND BRAKES HOME OXYGEN FROM UNKNOWN PROVIDER * List name and contact numbers for known caregivers / representatives who currently or will assist patient after discharge: EDUARDO SANDHU, SPOUSE, * Verbal permission to speak to the caregivers and representatives has been obtained from the patient. N/A * Community resources currently utilized None * Please name any agencies selected above. NONE * Additional services required to return to the preadmission environment? No * Can the patient safely return to the preadmission environment? Yes * Has this patient been hospitalized within the prior 30 days at any hospital? No Coverage Notice Reviewer: [id number] - Marin Horton Notice Issued Date-Time: 07/15/2018 12:25 Notice Type: IM Discharge Notice Notice Delivered To: Patient Relationship to Patient: Bias Cutting Machine Operator Vertical Name: Delivery Method: HAND - Hand Delivered Divya Days: Prior Verbal Notification: Recipient Understood Notice: Yes Recipient Signature: Yes Med Rec Note Co-signed by Attending: Coverage Notice Comment: Last DP export: 07/15/18 4:24 pm Patient Name: YINKA SANDHU Page [phone] at 1732 All edits/amendments must be made on the electronic document DICTATION DATE: 06/07/19 1732 MONOTYPE KEYBOARD OPERATOR: LUIS 07/15/18 1732 RPT#: [id number] DC DATE: STATUS: ADM IN [facility] [address] [place] [address] END OF REPORT
--- NOTE | 2018-07-15 19:30 | NUR ---
ASSESSMENT COMPLETE, PT A&O. SITTING UP IN CHAIR AT BED SIDE. RESPERATIONS EVEN ON RA. IV TO LEFT ARM WITH DOBUTAMINE IN FUSING AT 7.3 CC/HR (2.5 MCG/KILO). PT DENIES PAIN OR NEEDS, BED LOW, CL IN REACH.
--- NOTE | 2018-07-15 20:30 | NUR ---
HS MEDS GIVEN WITH FRESH ICE WATER. PT PAIN OR NEEDS.
--- NOTE | 2018-07-16 02:52 | NUR ---
RESTING WITH EYES CLOSED, RESPERATIONS EVEN, NO S/S DISTRESS NOTED.
--- NOTE | 2018-07-16 03:02 | NUR ---
I have reviewed this patient and I concur with the Shift Assessment completed by the Licensed Practical Nurse today this shift.
[2018-07-16 04:00] VITALS: BP 94/55
--- NOTE | 2018-07-16 05:44 | NUR ---
COILED TUBING OPERATOR AT BED SIDE, PT UP TO SHOWER WITH SOWER CHAIR. LINENS CHANGED.
[2018-07-16 06:05] LABS: BASOPHILS 0.5 % (0-2); EOSINOPHILS 4.8 % (0-7); HEMATOCRIT 41.8 % (42.0-54.0); HEMOGLOBIN 14.2 g/dL (13.5-17.5); LYMPHOCYTES 13.5 % (15-50); MCH 28.3 pg (26.0-34.0); MCV 83.4 fL (80.0-100.0); MONOCYTES 13.5 % (2-11); NEUTROPHILS 67.7 % (40-80); PLATELET COUNT 144 10x3/uL (130-400); RBC 5.01 10x6/uL (4.20-6.10); RDW 18.7 % (11.5-14.5); WBC 6.3 10x3/uL (4.8-10.8)
[2018-07-16 06:29] LABS: ANION GAP 14.6 mmol/L (8-16); CALCIUM 8.7 mg/dL (8.5-10.1); CARBON DIOXIDE 24.4 mmol/L (21.0-32.0); CREATININE - SERUM 1.8 mg/dL (0.6-1.3)
[2018-07-16 09:37] VITALS: BP 125/78
--- NOTE | 2018-07-16 10:48 | NUR ---
I have reviewed this patient and I concur with the Shift Assessment completed by the Licensed Practical Nurse today this shift.
--- NOTE | 2018-07-16 12:25 | NUR ---
DR NIEVES HERE. NEW ORDERS RECEIVED.
[2018-07-16 14:15] LABS: BASOPHILS 0.3 % (0-2); EOSINOPHILS 2.7 % (0-7); HEMATOCRIT 43.1 % (42.0-54.0); HEMOGLOBIN 14.3 g/dL (13.5-17.5); IMMATURE GRANULOCYTES 0.2 % (0-5); MCH 27.8 pg (26.0-34.0); MCHC 33.2 g/dL (31.0-37.0); MCV 83.9 fL (80.0-100.0); MONOCYTES 10.2 % (2-11); NEUTROPHILS 74.6 % (40-80); PLATELET COUNT 161 10x3/uL (130-400); RBC 5.14 10x6/uL (4.20-6.10); RDW 18.7 % (11.5-14.5); WBC 6.4 10x3/uL (4.8-10.8)
[2018-07-16 15:18] VITALS: BP 112/61
[2018-07-16 18:48] VITALS: BP 104/76
[2018-07-16 20:00] VITALS: BP 126/72
--- NOTE | 2018-07-16 21:59 | NUR ---
INITIAL ROUNDS COMPLETED AT 1909 HRS. PT DENIED ANY DISCOMFORT. PT PICKING AT SCABS TO BILAT FACE AND L CHEST. L CHEST BLEEDING AND BANDAGE APPLIED. ALSO HAS C/O NOSE BEING DRIED OUT. HUMIDIFER PLACED ON O2. ASSESSMENT COMPLETED AT 2024 HRS. VSS. SR WITH OCC PVC'S PER CM HR 87. PT ALERT AND ORIENTED TO PERSON, PLACE AND TIME. [place]. O2 3LNC. PT SOB WITH ACTIVITY. IV TO LFA WITH DOBUTREX AT 1.25 MCG/KG/MIN (3.6CC/HR). IV PATENT. LUNGS DIMINISHED IN BASES BILAT. PM FSBS 227. SCHEDULED LANTUS GIVEN WITH PM MEDS. PT CURRENTLY RESTING WITH EYES CLOSED. RESP EVEN AND REGULAR. SR UP X2, CALL LIGHT WITHIN REACH.
[2018-07-17] VITALS: BP 99/56
--- NOTE | 2018-07-17 01:39 | NUR ---
PT RESTING WITH EYES CLOSED. RESP EVEN AND REGULAR. SR UP X2, CALL LIGHT WITHIN REACH.
[2018-07-17 04:00] VITALS: BP 110/66
--- NOTE | 2018-07-17 04:16 | NUR ---
PT RESTING WITH EYES CLOSED. RESP EVEN AND REGULAR. SR UP X2,CALL LIGHT WITHIN REACH.
--- NOTE | 2018-07-17 06:13 | NUR ---
VSS THROUGHOUT NIGHT. SR PER CM. PT DENIED ANY DISCOMFORT. NEEDS MET; WILL CONTINUE TO MONITOR.
[2018-07-17 06:21] LABS: BASOPHILS 0.5 % (0-2); EOSINOPHILS 3.2 % (0-7); HEMATOCRIT 42.1 % (42.0-54.0); HEMOGLOBIN 13.9 g/dL (13.5-17.5); IMMATURE GRANULOCYTES 0.2 % (0-5); LYMPHOCYTES 13.9 % (15-50); MCH 27.9 pg (26.0-34.0); MCV 84.4 fL (80.0-100.0); MONOCYTES 15.4 % (2-11); NEUTROPHILS 66.8 % (40-80); PLATELET COUNT 155 10x3/uL (130-400); RBC 4.99 10x6/uL (4.20-6.10); RDW 19.2 % (11.5-14.5); WBC 6.5 10x3/uL (4.8-10.8)
[2018-07-17 06:30] LABS: INR 1.28 (0.85-1.17); PROTIME 15.5 SECONDS (11.6-15.0)
--- NOTE | 2018-07-17 07:20 | NUR ---
RECIEVE REPORT. PATIENT RESTING IN BED WITH EYES CLOSED. RESPIRATIONS EVEN AND REGULAR. OXYGEN AT 3L NC. HR-84 SINUS RHYTHM WITH PVCs. CONTINUE PLAN OF CARE AND SAFETY PRECAUTIONS.
[2018-07-17 07:49] LABS: ANION GAP 16.1 mmol/L (8-16); CALCIUM 8.7 mg/dL (8.5-10.1); CARBON DIOXIDE 22.7 mmol/L (21.0-32.0); CREATININE - SERUM 1.6 mg/dL (0.6-1.3); POTASSIUM - SERUM 3.8 mmol/L (3.5-5.1)
[2018-07-17 08:36] VITALS: BP 108/66
[2018-07-17] MEDS ORDERED: LASIX40 MG PO ×2 (10:51→10:55)
--- NOTE | 2018-07-17 10:54 | NUR ---
ALERT AND ORIENTED X4. UP TO RESTROOM. DC DOBUTREX DRIP PER DOCTOR ORDER. SINUS RHYTHM ON TELEMETRY. CONTINUE PLAN OF CARE AND SAFETY PRECAUTIONS.
[2018-07-17 11:41] VITALS: BP 108/57
--- NOTE | 2018-07-17 12:45 | NUR ---
PER DR NIEVES PT IS INSTRUCTED TO HOLD PLAVIX AND ASPIRIN X 3 DAYS, USE AFRIN AND SALINE NS X 3 DAYS THEN PRN.
--- NOTE | 2018-07-17 16:07 | NUR ---
ALERT AND ORIENTED X4. SITTING UP IN CHAIR. DISCHARGE INSTRUCTIONS GIVEN VERBALLY AND WRITTEN. DISCHARGE PAPERS SIGNED ON CHART. DC LT FA IV TIP INTACT. SPOUSE ARRIVES. ESCORT TO RIDE VIA WHEELCHAIR. REMAINS FREE FROM INJURY.
--- NOTE | 2018-07-17 17:36 | MORECARE ---
CASE MANAGEMENT DISCHARGE SUMMARY PATIENT: YINKA SANDHU UNIT: [id number] ADM DATE: 07/14/18 AGE: 72 : [birth year] SEX: M ROOM/BED: D.1982 AUTHOR: MAGALIS,DOC PHYSICIAN: REFERRING PHYSICIAN: MESFIN RAYO M.D. DATE OF SERVICE: 07/17/18 Discharge Plan Patient Name: YINKA SANDHU Facility: [facility]:[place] : 1945 Planned Disposition: Home Anticipated Discharge Date: 07/15/18 Discharge Date: 07/17/2018 Expected LOS: 1 Initial Reviewer: [id number] Initial Review Date: 07/15/2018 Generated: 07/17/18 6:36 pm Comments DCP- Discharge Planning Updated by [email or web address]: Marin Horton on 07/15/18 4:[address] Patient Name: YINKA SANDHU Admission Status: Urgent Accout number: [id number] Admission Date: 07-14-2018 : 1945 Admission Diagnosis: Attending: MESFIN RAYO Current LOS: 1 Anticipated DC Date: 07-15-2018 Planned Disposition: Home Primary Insurance: MEDICARE A & B Discharge Planning Comments: CM RECEIVED ORDER FOR OUTPATIENT APPOINTMENT FOR OUTPATIENT PSYCHIATRIC CONSULT. CM MET WITH PT IN ROOM TO DISCUSS DISCHARGE PLANNING AND NEEDS. PT REPORTS LIVING AT HOME WITH HIS WHO ASSISTS WITH MEDICATION MANAGEMENT. PT REPORTS OTHERWISE BEING INDEPENDENT AT HOME. . PT HAS CANE, NEBULIZER, HOME OXYGEN, WALKER WITH SEAT AND BRAKES WELL WHEELCHAIR WITH NO MEDICAL EQUIPMENT PROVIDER PREFERENCE; PT CANNOT REMEMBER WHO PROVIDES HIS OXYGEN. PT HAS NO OUTSIDE SERVICES ASSISTING IN THE HOME. CM DISCUSSED AVAILABILITY OF HOME HEALTH, REHAB SERVICES AND MEDICAL EQUIPMENT. PT DENIES DISCHARGE NEEDS, REPORTS HIS WILL PICK HIM UP FOR DISCHARGE HOME. IMPORTANT MESSAGE FROM MEDICARE PROVIDED AND EXPLAINED. CM DISCUSSED ORDER FOR OUTPATIENT PSYCHIATRIC CONSULT. PT REPORTS HE HAS COMPULSIVELY PICKED AT HIS SKIN SINCE HE WAS A CHILD. PT STATES THAT HIS IS VERY ORGANIZED AND DOES NOT LIKE THE BEHAVIOR AND PT HAS AGREED TO SEE SOMEONE ABOUT THE BEHAVIOR. CM PROVIDED PT WITH INFORMATION TO [facility] AND [facility], WALK IN CLINIC HOURS ARE M- 8:30AM TO 3:30PM AND SATURDAYS 9AM TO 2PM. NO APPOINTMENT IS NECESSARY. ADDRESS AND PHONE NUMBER TO THE FACILITY LOCATED ON THE CARD. PT REPORTS UNDERSTANDING AND REPORTS HIS WILL TAKE HIM AFTER DISCHARGE HOME. PT DENIES FURHTER NEEDS. PT HAS BEEN PROVIDED INFORMATION TO [facility], NO APPOINTMENT NECESSARY AND HE ONLY NEEDS TO SHOW UP DURING CLINIC HOURS: M- 8:30AM TO 3:30PM AND SATURDAYS 9AM TO 2PM. [address] [place] [address] ZAIDA MONTEZUMA, LOI. [address]; [phone]. Flare Man: Marin Horton DCPIA - Discharge Planning Initial Assessment Updated by [id number]: Marin Horton on 07/15/18 5:30 pm * Is the patient Alert and Oriented? Yes * How many steps to enter\exit or inside your home? NONE * PCP DR. SMITH * Pharmacy [facility] * Preadmission Environment Home with Family * ADLs Partial Dependent * Partial ADLs (Assistance needed) Medication Management * Equipment Cane Nebulizer Oxygen Rolling Walker Walker * Other Equipment WALKER WITH SEAT AND BRAKES HOME OXYGEN FROM UNKNOWN PROVIDER * List name and contact numbers for known caregivers / representatives who currently or will assist patient after discharge: EDUARDO SANDHU, SPOUSE, * Verbal permission to speak to the caregivers and representatives has been obtained from the patient. N/A * Community resources currently utilized None * Please name any agencies selected above. NONE * Additional services required to return to the preadmission environment? No * Can the patient safely return to the preadmission environment? Yes * Has this patient been hospitalized within the prior 30 days at any hospital? No Coverage Notice Reviewer: [id number] - Marin Horton Notice Issued Date-Time: 07/15/2018 12:25 Notice Type: IM Discharge Notice Notice Delivered To: Patient Relationship to Patient: Technical Aid Name: Delivery Method: HAND - Hand Delivered Divya Days: Prior Verbal Notification: Recipient Understood Notice: Yes Recipient Signature: Yes Med Rec Note Co-signed by Attending: Coverage Notice Comment: Reviewer: [email or web address] Eb Stock Notice Issued Date-Time: 07/17/2018 10:25 Notice Type: IM Discharge Notice Notice Delivered To: Patient Relationship to Patient: Self Technical Aid Name: Delivery Method: HAND - Hand Delivered Divya Days: Prior Verbal Notification: Recipient Understood Notice: Yes Recipient Signature: Yes Med Rec Note Co-signed by Attending: Coverage Notice Comment: Last DP export: 07/15/18 4:32 pm Patient Name: YINKA SANDHU Page [id number] at 1736 All edits/amendments must be made on the electronic document DICTATION DATE: 07/17/181735 CABLE TOWER OPERATOR: LUIS 07/17/181735 RPT#: [id number] DC DATE:07/17/18 STATUS: DIS IN [facility] [address] [place] [address] END OF REPORT
== END 2018-07-17 16:08 | disposition home or self-care (01) | DRG 291 ==
LOC: D.M2 16:04 → D.SDCHOLD 16:04 → D.M2 16:18
PROVIDERS: Internal Medicine Pulmonary Disease; ADMIT Internal Medicine Cardiovascular Disease; ATTEND Internal Medicine Cardiovascular Disease
DX: I13.0 Hypertensive heart and chronic kidney disease with heart failure and stage 1 through stage 4 chronic kidney disease, or unspecified chronic kidney disease (principal); I50.23 Acute on chronic systolic (congestive) heart failure; J18.9 Pneumonia, unspecified organism; J96.21 Acute and chronic respiratory failure with hypoxia; N18.9 Chronic kidney disease, unspecified; E11.22 Type 2 diabetes mellitus with diabetic chronic kidney disease; I87.8 Other specified disorders of veins; F32.9 Major depressive disorder, single episode, unspecified; F41.9 Anxiety disorder, unspecified; F03.90 Unspecified dementia, unspecified severity, without behavioral disturbance, psychotic disturbance, mood disturbance, and anxiety; E78.5 Hyperlipidemia, unspecified; I08.3 Combined rheumatic disorders of mitral, aortic and tricuspid valves; I48.91 Unspecified atrial fibrillation; R91.1 Solitary pulmonary nodule; G47.33 Obstructive sleep apnea (adult) (pediatric); K21.9 Gastro-esophageal reflux disease without esophagitis; J30.9 Allergic rhinitis, unspecified; I25.10 Atherosclerotic heart disease of native coronary artery without angina pectoris; J20.9 Acute bronchitis, unspecified; I27.20 Pulmonary hypertension, unspecified; I25.5 Ischemic cardiomyopathy; Z86.711 Personal history of pulmonary embolism; Z86.73 Personal history of transient ischemic attack (TIA), and cerebral infarction without residual deficits

== ENCOUNTER 2018-07-23 17:52 | Emergency (ER) | payer MEDICARE ==
[~2018-07-23] VITALS: Ht 175.3 cm; Wt 94.1 kg
[2018-07-23 18:02] VITALS: Ht 175.3 cm; Wt 94.1 kg
[2018-07-23 19:09] LABS: ALBUMIN 2.6 g/dL (3.4-5.0); ALKALINE PHOSPHATASE 86 U/L (46-116); ALT (SGPT) 13 U/L (10-68); BILIRUBIN - TOTAL 0.69 mg/dL (0.2-1.3); CALC OSMOLALITY 296 mosm/kg (275-300); CALCIUM 8.8 mg/dL (8.5-10.1); CARBON DIOXIDE 25.3 mmol/L (21.0-32.0); CHLORIDE - SERUM 108 mmol/L (98-107); CREATININE - SERUM 1.7 mg/dL (0.6-1.3); GLUCOSE 130 mg/dL (74-106); POTASSIUM - SERUM 4.2 mmol/L (3.5-5.1); PROTEIN - SERUM 6.5 g/dL (6.4-8.2); SODIUM 143 mmol/L (136-145); UREA NITROGEN 41 mg/dL (7-18); eGFR NON AFRICAN AMERICAN 42 mL/min (90-120)
[2018-07-23 19:12] LABS: BASOPHILS 0.9 % (0-2); EOSINOPHILS 3.5 % (0-7); HEMOGLOBIN 10.6 g/dL (13.5-17.5); IMMATURE GRANULOCYTES 0.1 % (0-5); LYMPHOCYTES 15.6 % (15-50); MCH 27.6 pg (26.0-34.0); MCHC 33.1 g/dL (31.0-37.0); MCV 83.3 fL (80.0-100.0); MEAN PLATELET VOLUME 10.9 fL (7.4-10.4); MONOCYTES 14.9 % (2-11); PLATELET COUNT 149 10x3/uL (130-400); RBC 3.84 10x6/uL (4.20-6.10); RDW 18.8 % (11.5-14.5); WBC 7.4 10x3/uL (4.8-10.8)
[2018-07-23 19:14] LABS: AMYLASE - SERUM 20 U/L (25-115); LIPASE 121 U/L (73-393); TROPONIN-I < 0.017 ng/mL (0.000-0.060)
[2018-07-23 19:50] LABS: APPEARANCE CLEAR (CLEAR); BILIRUBIN NEGATIVE (NEGATIVE); COLOR YELLOW (YELLOW); GLUCOSE NEGATIVE (NEGATIVE); KETONE NEGATIVE (NEGATIVE); NITRITE NEGATIVE (NEGATIVE); PROTEIN NEGATIVE (NEGATIVE); UROBILINOGEN NORMAL (NORMAL)
[2018-07-23 21:17] LABS: INR 1.48 (0.85-1.17); PROTIME 17.3 SECONDS (11.6-15.0)
[2018-07-24 03:15] VITALS: BP 114/76
== END 2018-07-24 03:16 | disposition other institution (70) ==
LOC: D.ER 17:52
PROVIDERS: Emergency Medicine
DX: K92.2 Gastrointestinal hemorrhage, unspecified (principal)

== ENCOUNTER 2018-08-16 12:20 | Inpatient (IN) | payer MEDICARE ==
[~2018-08-16] VITALS: Ht 177.8 cm; Wt 86.2 kg
--- NOTE | 2018-08-16 12:10 | NUR ---
RECIEVED FROM HOME TO ROOM 1110/WC,ON O2@3L/NC.ORIENTED TO ROOM AND SURROUNDINGS.CL IN REACH.
--- NOTE | 2018-08-16 13:10 | NUR ---
UP OOB , ALARM SOUNDING;FOUND IN BATHROOM;ASSISTED TO COMMODE AND BACK TO BED.ALARM SET.CL IN REACH.
[2018-08-16] MEDS ORDERED: AZELASTINE137 MCG/0. NASAL (15:52)
[2018-08-16] MEDS ORDERED: CARAFATE1 G PO (15:52)
[2018-08-16] MEDS ORDERED: PROTONIX40 MG PO (15:53)
[2018-08-16] MEDS ORDERED: FLUTICASONE PRO16 GM NASAL (15:53)
[2018-08-16] MEDS ORDERED: LOW DOSE ASPIRI81 M1 PO (15:55)
[2018-08-16] MEDS ORDERED: SLOW RELEASE I160 MG PO (15:55)
[2018-08-16] MEDS ORDERED: K-DUR20 MEQ PO (15:56)
[2018-08-16] MEDS ORDERED: VITAMIN B-6100 MG PO (15:57)
[2018-08-16] MEDS ORDERED: MULTI-DAY VITAM1 TAB PO (15:58)
[2018-08-16] MEDS ORDERED: LASIX40 MG PO (16:00)
[2018-08-16] MEDS ORDERED: ATARAX 25 MG TA25 MG PO (16:01)
[2018-08-16 17:18] VITALS: BP 115/80; BMI 27.3
--- NOTE | 2018-08-16 19:35 | NUR ---
RESTING IN BED WITH EYES CLOSED AND RESPIRAITONS UNLABORED. NO ACUTE DISTRESS NOTED. CALL LIGHT IN REACH.
[2018-08-16 20:02] VITALS: BP 113/68
--- NOTE | 2018-08-17 03:42 | NUR ---
RESTING IN BED. UP AT INTERVALS TO GO TO BATHROOM. CONTINUES TO HAVE SOME DISORIENTATION TO SITUATION. RESPIRATIONS UNLABORED. NO DISTRESS NOTED.
--- NOTE | 2018-08-17 04:55 | NUR ---
RESTING IN BED WITH NO DISTRESS NOTED. NO ACUTE CHANGES IN CONDITION THIS SHIFT.
[2018-08-17 08:02] VITALS: BP 112/52
--- NOTE | 2018-08-17 08:04 | NUR ---
ALERT WITH CONFUSION NOTED. NO C/O PAIN. CL IN REACH. RESP EVEN AND UNLABORED.
[2018-08-17 08:21] LABS: BASOPHILS 0.6 % (0-2); EOSINOPHILS 5.1 % (0-7); HEMATOCRIT 37.6 % (42.0-54.0); HEMOGLOBIN 11.8 g/dL (13.5-17.5); IMMATURE GRANULOCYTES 0.1 % (0-5); MCH 26.1 pg (26.0-34.0); MCHC 31.4 g/dL (31.0-37.0); MCV 83.2 fL (80.0-100.0); MEAN PLATELET VOLUME 11.4 fL (7.4-10.4); MONOCYTES 14.1 % (2-11); NEUTROPHILS 64.1 % (40-80); RBC 4.52 10x6/uL (4.20-6.10); RDW 17.9 % (11.5-14.5); WBC 6.7 10x3/uL (4.8-10.8)
[2018-08-17 08:24] LABS: ANION GAP 13.8 mmol/L (8-16); CALCIUM 8.5 mg/dL (8.5-10.1); CARBON DIOXIDE 23.5 mmol/L (21.0-32.0); CREATININE - SERUM 1.8 mg/dL (0.6-1.3); PLATELET COUNT 189 10x3/uL (130-400); POTASSIUM - SERUM 4.3 mmol/L (3.5-5.1)
--- NOTE | 2018-08-17 09:21 | NUR ---
NIFEREX. VIT B6 AND THERGRAN REQUESTED FROM PHARMACY. NONE IN [place] OR [place]. PATIENT GAVE HIM CANCER MED TODAY. SENT TO PHARMACY TO GET LABELED FOR US TO GIVE NEXT TIME.
--- NOTE | 2018-08-17 09:53 | NUR ---
THERAPIST QUESTIONED IF PATIENT HAS SCABIES.(HAS SORES OVER MOST OF BODY AND HEAD). TOLD NURSE MEGAN ZAPATA RN AND SHE HAD ME CALL LORI ROY INFECTION CONTROL. PATIENT PLACED IN TEMEPORARY ISOLATION UNTIL LORI CAN COME CHECK PATIENT SKIN TO VERIFIFY IF HAS SCABIES OR NOT.
--- NOTE | 2018-08-17 12:09 | RHP ---
PATIENT: YINKA SANDHU MEDICAL RECORD: [id number] ACCOUNT: [id number] LOCATION:[facility].1110 : [birth year] ADMISSION DATE: 08/16/18 REHABILITATION HISTORY AND PHYSICAL EXAMINATION POST ADMISSION PHYSICIAN EXAMINATION DATE OF ADMISSION: 08/16/2018. ADMITTING DIAGNOSES: Disuse myopathy. HISTORY OF PRESENT ILLNESS: The patient is a 72-year-old gentleman who presents secondary to history of CVA, neuropathy, dementia, severe COPD with O2 dependence, coronary artery disease, status post CABG and stenting, sleep apnea, chronic respiratory failure. He has had multiple hospitalizations due to his CHF and GI bleed in the past couple of months. He was seen by [facility] on 08/15/2018 and was found that the patient needed more intensive therapy and medical management that could be done at home, so inpatient acute rehab was indicated. He is currently being treated for UTI that has not been resolving at home causing increased confusion, new onset bowel and bladder incontinence, multiple falls. He has been assessed, no significant injuries. He does have proximal muscle weakness, impaired mobility, gait disturbance, high fall risk, decreased mobility, inability to rise from bed to chair, dyspnea with exertion, recent weight loss, and self-care deficits. These are all barriers to his discharge home at this time. He lives at home with his , was independent with mobility and ADLs up to the last couple of weeks. He is currently mod assist to total assist for mobility. He is set up for total assist for ADLs. His would like for him to return home after a short stay in the rehab to get him back to his normal level of functioning. COMORBIDITIES: In this patient include UTI, acute mental status changes, multiple falls, increased confusion, recent GI bleed, dyspnea on exertion, new-onset bowel and bladder incontinence, chronic hypoxic respiratory failure, asthma, history of pulmonary embolism in the past, allergic rhinitis, gastroesophageal reflux disease, obstructive sleep apnea, atrial fib, chronic kidney disease, diabetes, hypertension, hyperlipidemia, debility, dementia, depression, anxiety, and lower extremity stasis. PAST MEDICAL HISTORY: Significant for neuropathy, dementia, allergies, diabetes, hypertension, MA, coronary artery disease, mitral valve problems, and Dfzab-Kmpufuuwq-Cwkvj, hyperlipidemia, chronic O2 use, sleep apnea, pulmonary emboli, depression and anxiety. PAST SURGICAL HISTORY: Includes gallbladder surgery, angioplasty with stents, coronary artery bypass grafting, and vasectomy. ALLERGIES: LORAZEPAM. HE IS ALSO ALLERGIC TO VALIUM, HALDOL, AND VERSED. CURRENT MEDICATIONS: Include Floranex daily, aspirin 81 mg daily. He is on Niferex 1 cap daily, potassium 10 mEq daily, pyridoxine 100 mg daily, multivitamin daily, Plavix 75 mg daily, spironolactone 12.5 mg daily, Amaryl 4 mg daily. He is on Aricept 10 mg q.h.s., Cymbalta 60 mg q.h.s., Pravachol 20 mg q.h.s., Lyrica 75 mg b.i.d., furosemide 40 mg b.i.d., nitrofurantoin daily b.i.d. with meals. He is on Coreg 3.125 mg b.i.d. He is on Protonix 40 mg daily, hydroxyzine 25 mg t.i.d., Astelin nasal spray, Flonase nasal spray, Carafate 1 gram t.i.d. and a.c., [place] 10/325 one tab q.6 hours p.r.n. HISTORY AND PHYSICAL [id number] YINKA SANDHU HABITS: No alcohol or tobacco use. FAMILY HISTORY: Noncontributory. SOCIAL HISTORY: The patient hopes to return back home with his and get back to his prior level of functioning. REVIEW OF SYSTEMS: GENERAL: Does complain of weakness and fatigue. HEENT: Denies cold, cough, or congestion. CARDIOVASCULAR: Denies any chest pain. PHYSICAL EXAMINATION: VITAL SIGNS: Stable, afebrile. GENERAL: Elderly gentleman in no acute distress, alert upon exam. HEENT: Normocephalic and atraumatic. Mucosa moist. NECK: Supple. No lymphadenopathy. LUNGS: Clear in upper hutch[place]. HEART: Regular rate and rhythm. He does have a holosystolic murmur. ABDOMEN: Soft, benign, and nondistended, positive bowel sounds times 4. EXTREMITIES: No clubbing, cyanosis or edema. Does have some bruising from previous scars. NEUROLOGIC: He does have slow mentation and weakness. LABORATORY DATA: White count is 6.7 from today, H&H are 12 and 37.6, and platelet count is noted to be 189. His sodium and electrolytes are pending. ASSESSMENT: This is a 72-year-old gentleman admitted to the rehab with a working diagnosis of disuse myopathy. The patient has potential to make improvement. We instituted the following multidisciplinary therapies including, but not limited to physical, occupational, respiratory, speech, nutritional services, prosthetics, and orthotics. Given his complex medical condition, risk of further medical complications, rehabilitative services cannot be provided at a low level of care such as [facility] facility. PLAN: 1. Admit to [facility] rehab for an intensive inpatient therapy to include the following disciplines: A. Physical therapy to improve gait, all transfer skills and bed mobility to a modified independent level. B. Occupational therapy to improve activities of daily living to a modified independent level. C. Case management to assist with discharge planning and placement options. D. Nutrition to assist with nutritional needs. E. Rehabilitation nursing to assist in monitoring the patient's underlying medical conditions and to assist with any type of bowel or bladder management. 2. The patient's current medication and medical care will be continued. 3. The patient will be placed on standard fall precautions. 4. The patient's estimated length of stay is approximately 7-10 days. 5. We will discuss this patient during care team staff meeting this week. TRANSINT:[id number] Voice Confirmation ID: [id number] DOCUMENT ID: [id number] HISTORY AND PHYSICAL [id number] YINKA SANDHU notes whether there has been none or any medical/functional change since admission: - No change since prescreen. BECK attests patient continues to be appropriate for IRF: - Continues to be appropriate. KAREEN SABA MD at 1209 CC: [id number] DICTATION DATE: 08/17/18 0825 PRESSURE TESTER OPERATOR: 08/17/18 0844 ADM IN [facility] [address] [place] [address]
[2018-08-17 12:47] VITALS: Ht 177.8 cm; Wt 86.2 kg
--- NOTE | 2018-08-17 12:48 | NUR ---
SHOWER TODAY PER OT. SITTING IN CHAIR WITH ALARM AT THSI TIME.
--- NOTE | 2018-08-17 14:14 | NUR ---
PATIENT CLEARED FROM TEMPORARY ISOLATION BY LORI ROY INFECTION CONTROL. BERNARD ROY SPOKE TO DR MACKENZIE AND PATIENT HAS SKIN CONDITION RT: PRE CANCEROUS CELLS-ACTINIC KERTOSIS.
--- NOTE | 2018-08-17 16:24 | NUR ---
Blanchable redness noted on bilateral buttocks. Recommended Mepilex sacral for protection. Instructed pt to reposition himself while in wheelchair and in bed to relieve pressure. He voiced understanding. Will monitor.
--- NOTE | 2018-08-17 17:17 | NUR ---
NO CHANGE IN ASSESSMENT. RESTING WO DISTRESS. CL IN REACH. MEPLIX PLACED TO REDNESS ON BUTTOCKS FOR PREVENTIVE. BED ALARM ON.
--- NOTE | 2018-08-17 19:35 | NUR ---
PT LYING IN BED. CL IN REACH. NO DISTRESS NOTED. WCTM.
[2018-08-17 21:48] VITALS: BP 107/66
--- NOTE | 2018-08-17 21:48 | NUR ---
PT SITTING UP ON SIDE OF BED. CL IN REACH. DENIES NEEDS OR PAIN. ASSESSMENT COMPLETED. CONFUSED ALERT TO SELF. RESP EVEN AND UNLABORED. LUNGS CLEAR. BOWEL ACTIVE X4. BED ALARM ON. MEDS WHOLE. WCTM
--- NOTE | 2018-08-18 04:32 | NUR ---
I have reviewed this patient and I concur with the Shift Assessment completed by the Licensed Practical Nurse today this shift.
--- NOTE | 2018-08-18 05:07 | NUR ---
PT SITTING UP ON SIDE OF BED WENT INTO ROOM TO CHECK ON PT. PT STATED HE WAS JUST SITTING UP. BLOOD NOTED ON BED SHEET. RIGHT ELBOW HAS A SKIN TEAR WITH DRY BLOOD ON IT. MEPILEX BANDAGE APPLIED. WCTM PT LAYED BACK DOWN
[2018-08-18 08:00] VITALS: BP 115/67
--- NOTE | 2018-08-18 08:38 | NUR ---
PT RESTING IN BED WITH EYES OPEN CALL LIGHT IN REACH NO PROBLEMS WILL MONITER
--- NOTE | 2018-08-18 18:18 | NUR ---
PT RESTING IN BED WITH EYES OPEN CALL LIGHT IN REACH WILL MONITER
[2018-08-18 19:44] VITALS: BP 116/71
--- NOTE | 2018-08-18 20:07 | NUR ---
AWAKE AND ALERT WITH SOME FORGETFULNESS AND MILD CONFUSION. SOMETIMES FORGETS WHAT HE IS DOING MID TASK. RESPIRATIONS EVEN WITH NOTED SHORTNESS OF BREATH WITH EXERTION. O2/2L ON PER NASAL CANNULA. NO ACUTE DISTRESS NOTED. CALL LIGHT IN REACH.
--- NOTE | 2018-08-19 03:24 | NUR ---
RESTING IN BED WITH EYES CLOSED AND RESPIRAITONS UNLABORED. NO DISTRESS NOTED. CALL LIGHT IN REACH.
--- NOTE | 2018-08-19 05:00 | NUR ---
QUIET HOURS. RESTING IN BED WITH NO DISTRESS NOTED. NO ACUTE CHANGES IN CONDITION THIS SHIFT. CALL LIGHT IN REACH. SAFETY MEASURES IN PLACE.
[2018-08-19 06:22] LABS: BASOPHILS 0.7 % (0-2); EOSINOPHILS 3.9 % (0-7); HEMATOCRIT 36.7 % (42.0-54.0); HEMOGLOBIN 11.9 g/dL (13.5-17.5); IMMATURE GRANULOCYTES 0.1 % (0-5); LYMPHOCYTES 17.5 % (15-50); MCH 26.4 pg (26.0-34.0); MCHC 32.4 g/dL (31.0-37.0); MCV 81.4 fL (80.0-100.0); MEAN PLATELET VOLUME 11.8 fL (7.4-10.4); MONOCYTES 16.6 % (2-11); NEUTROPHILS 61.2 % (40-80); PLATELET COUNT 196 10x3/uL (130-400); RBC 4.51 10x6/uL (4.20-6.10); RDW 18.1 % (11.5-14.5); WBC 6.8 10x3/uL (4.8-10.8)
[2018-08-19 06:29] LABS: ANION GAP 15.3 mmol/L (8-16); CALCIUM 8.8 mg/dL (8.5-10.1); CARBON DIOXIDE 24.1 mmol/L (21.0-32.0); POTASSIUM - SERUM 4.4 mmol/L (3.5-5.1)
--- NOTE | 2018-08-19 07:06 | NUR ---
RECEIVED REPORT. LYING IN BED ON LEFT SIDE EYES CLOSED RESTING. CONTINUES ON 2L VIA NC. RR EVEN AND UNLABORED. CALL LIGHT WITHIN REACH, FALL PRECAUTIONS IN PLACE. WILL CONTINUE TO MONITOR
--- NOTE | 2018-08-19 07:33 | NUR ---
ASSISTED PT WITH TRANSFER FROM BED TO W/C WITH MIN ASSIST
[2018-08-19 08:00] VITALS: BP 111/71
--- NOTE | 2018-08-19 10:55 | NUR ---
Nutrition Follow Up: Chart reviewed Diet: Regular; Glucerna TID PO Intake: 83% meal avg BM: 08/18/18 Labs reviewed Meds noted including Vit B6, MV, Lasix Rec continue current diet, supplement regimen. RD following.
--- NOTE | 2018-08-19 11:48 | NUR ---
IN THERAPY GYM PARTICIPATING IN OT.
--- NOTE | 2018-08-19 13:51 | NUR ---
IN ROOM LYING IN BED PARTICIPATING IN SPEECH WITH VALERY
--- NOTE | 2018-08-19 17:04 | NUR ---
SITTING UP IN W/C EATING DINNER. NO SIGNS OF DISTRESS NOTED
[2018-08-19 19:40] VITALS: BP 125/62
--- NOTE | 2018-08-19 19:56 | NUR ---
AWAKE AND ALERT. RESTING IN BED WITH RESPIRATIONS UNLABORED. O2/2L ON PER NASAL CANNULA. SOME MILD CONFUSION. NO ACUTE DISTRESS NOTED. CALL LIGHT IN REACH.
--- NOTE | 2018-08-20 05:05 | NUR ---
QUIET HOURS. RESTING IN BED WITH NO DISTRESS NOTED. NO ACUTE CHANGES IN CONDITION THIS SHIFT. CALL LIGHT IN REACH.
--- NOTE | 2018-08-20 07:10 | NUR ---
RECEIVED REPORT. SITTING UP IN BED EYES OPEN ALERT. DENIES ANY NEEDS OR PAIN. NO SIGNS OF DISTRESS NOTED. CONTINUES ON 3L VIA NC. CALL LIGHT WITHIN REACH, FALL PRECAUTIONS IN PLACE. WILL CONTINUE TO MONITOR
[2018-08-20 08:50] VITALS: BP 110/66
--- NOTE | 2018-08-20 12:41 | NUR ---
SITTING UP IN W/C EATING LUNCH. NO SIGNS OF DISTRESS NOTED. CONTINUES ON 3L VIA NC. CHAIR ALARM ON. WILL CONTINUE TO MONITOR
--- NOTE | 2018-08-20 15:00 | NUR ---
ASSISTED FROM CHAIR TO BED WITH MIN ASSIST. BED ALARM ON
--- NOTE | 2018-08-20 17:38 | NUR ---
ASSISTED WITH TRANSFER FROM TOILET TO CHAIR MIN ASSIST. MEDIUM FORMED BM. SET UP DINNER TRAY. CONTINUES ON 3L VIA NC. WILL CONTINUE TO MONITOR
--- NOTE | 2018-08-20 19:30 | NUR ---
GREETED PATIENT AND INTRODUCED MYSELF. PATIENT IS SITTING IN WHEELCHAIR. PT. HAD REMOVED NC AND HAD IT IN THE FLOOR. REAPPLIED NC AND PTS. BREATHING IMPROVED. PT. IS CONFUSED TO SURROUNDINGS. CALL LIGHT WITHIN REACH.
[2018-08-20 20:13] VITALS: BP 118/67
[2018-08-20 20:24] VITALS: BP 118/67
--- NOTE | 2018-08-21 02:30 | NUR ---
ASSISTED PATIENT TO BATHROOM USING WHEELCHAIR. BACK TO BED AND REPOSITIONED FOR COMFORT. CALL LIGHT IN REACH.
--- NOTE | 2018-08-21 03:34 | NUR ---
PATIENT LAYING IN BED AWAKE. DENIES ANY NEEDS AT THIS TIME. CALL LIGHT IN REACH.
[2018-08-21 07:30] VITALS: BP 108/64
--- NOTE | 2018-08-21 07:30 | NUR ---
RECEIVED REPORT. SITTING UP IN W/C LOOKING OUT WINDOW, W/C ALARM ON. ALERT TO SELF. REORIENTED TO PLACE, TIME, AND SITUATION. VS STABLE. CONTINUES ON 3L VIA NC. SHIFT ASSESSMENT COMPLETE. DENIES ANY PAIN OR NEEDS. CALL LIGHT WITHIN REACH, FALL PRECAUTIONS IN PLACE. WILL CONTINUE TO MONITOR
--- NOTE | 2018-08-21 12:49 | NUR ---
SITTING UP ON SIDE OF BED EATING LUNCH. BED ALARM ON. DENIES ANY NEEDS. C/O SOME GENERALIZED DISCOMFORT. WILL ADMININSTER PRN NORCO. WILL CONTINUE TO MONITOR
--- NOTE | 2018-08-21 17:44 | NUR ---
SITTING UP ON SIDE OF BED EATING DINNER. DENIES ANY NEEDS. HAS REFUSED TO SHOWER TODAY OFFER X3 ATTEMPTS AND REFUSED ALL ATTEMPTS. CHANGED LINENS. CONTINUES ON 3L VIA PR. WILL CONTINUE TO MONITOR
--- NOTE | 2018-08-21 20:00 | NUR ---
PATIENT WAS FOUND OUTSIDE OF ROOM IN WHEELCHAIR. STATES HE WAS LOOKING FOR THE BATHROOM. TOOK PATIENT BACK TO ROOM AND ASSITED HIM WITH URINATION. WAS NOT READY TO GO TO BED SO LET HIM SIT UP IN HIS WHEELCHAIR.
--- NOTE | 2018-08-21 20:45 | NUR ---
PATIENT WAS GIVEN MEDICATION AND ASSITED BACK TO BED. MADE COMFORTABLE. NO COMPLAINTS OF PAIN OR DISCOMFORT. WILL CONTINUE TO MONITOR. CALL IGHT WITHIN REACH.
[2018-08-21 22:52] VITALS: BP 104/56
--- NOTE | 2018-08-22 01:58 | NUR ---
PATIENT SLEEPING AT THIS TIME. WILL CONITNUE TO MONITOR.
[2018-08-22 06:29] LABS: BASOPHILS 0.6 % (0-2); EOSINOPHILS 2.8 % (0-7); HEMATOCRIT 37.9 % (42.0-54.0); HEMOGLOBIN 12.2 g/dL (13.5-17.5); IMMATURE GRANULOCYTES 0.1 % (0-5); LYMPHOCYTES 12.9 % (15-50); MCH 25.9 pg (26.0-34.0); MCHC 32.2 g/dL (31.0-37.0); MCV 80.5 fL (80.0-100.0); MEAN PLATELET VOLUME 11.6 fL (7.4-10.4); MONOCYTES 19.2 % (2-11); NEUTROPHILS 64.4 % (40-80); PLATELET COUNT 218 10x3/uL (130-400); RBC 4.71 10x6/uL (4.20-6.10); WBC 7.8 10x3/uL (4.8-10.8)
[2018-08-22 06:46] LABS: ANION GAP 14.3 mmol/L (8-16); CALCIUM 9.1 mg/dL (8.5-10.1); CARBON DIOXIDE 23.5 mmol/L (21.0-32.0); CREATININE - SERUM 2.2 mg/dL (0.6-1.3); POTASSIUM - SERUM 4.8 mmol/L (3.5-5.1)
[2018-08-22 08:00] VITALS: BP 138/72
--- NOTE | 2018-08-22 08:05 | NUR ---
PT UP IN WHEELCHAIR AT BEDSIDE EATING BREAKFAST TOLERATING WELL
--- NOTE | 2018-08-22 13:47 | NUR ---
PT RESTING IN BED WITH EYES OPEN CALL LIGHT IN REACH NO PROBLEMS WILL MONITER
--- NOTE | 2018-08-22 14:11 | NUR ---
PATIENT ADMITTED TO REHAB FROM HOME WITH RECCOMENDATIONS FROM [facility]. HIS PCP IS DR. SMITH, DME AT HOME IS CANE, NEBULIZER, O2, WALKER AND A WHEELCHAIR. DISCHARGE PLANS ARE FOR PATIENT TO RETURN HOME WITH SPOUSE. WILL CONTINUE TO FOLLOW WITH PATIENT.
--- NOTE | 2018-08-22 18:09 | NUR ---
PT RESTING IN BED WITH EYES OPEN CALL LIGHT IN REACH NO PROBLEMS WILL MONITER
--- NOTE | 2018-08-22 18:13 | NUR ---
NURSE CALLED TO GIVE PT A BREATHING TREATMENT. I ARRIVED TO PT ROOM, PT LAYING FLAT IN BED WITH NO SIGNS OF DISTRESS I ASESSED PT. SATS 99% PT STATES HE DOES WANT A TREATMENT, HE SAYS HIS BREATHING IS FINE. I DID NOT GIVE PT TREATMENT. SPOKE WITH NURSE. I WILL ASSESS PT AGAIN LATER
--- NOTE | 2018-08-22 19:39 | NUR ---
AWAKE AND RESTING IN BED WITH O2/2L ON PER NASAL CANNULA. NOTED SHORTNESS OF BREATH WITH MINIMAL EXERTION. NOTED CONFUSION. WILL CONTINUE TO MONITOR. CALL LIGHT IN REACH.
[2018-08-22 21:10] VITALS: BP 117/69
--- NOTE | 2018-08-22 22:26 | NUR ---
CAME TO REASSESS PT. SATS 98% HR 75. PT SITTING UP ON SIDE OF BED. NO SIGNS OF DISTRESS AT THIS TIME. WILL CONTINUE TO MONITOR
--- NOTE | 2018-08-23 03:39 | NUR ---
RESTLESS, SITTING ON SIDE OF BED OFTEN THEN LYING BACK DOWN. SHORT OF BREATH WITH MINIMAL EXERTION. O2/2L ON PER NASAL CANNULA. O2 SATURATION 99% ON OXYGEN. MILD NOSE BLEED FROM LEFT NARE. AREA CLEANED AND NO FURTHER BLEEDING AT THIS TIME. WILL CONTINUE TO MONITOR.
--- NOTE | 2018-08-23 05:02 | NUR ---
RESTING IN BED. O2/2L PER NASAL CANNULA. RESPIRATIONS SHALLOW BUT UNLABORED. MAKES OCCASSIONAL GRUNTING SOUND WHILE SLEEPING. CALL LIGHT IN REACH.
--- NOTE | 2018-08-23 06:02 | NUR ---
ASSISTED UP TO BATHROOM. WHILE UP HE STATES "I'M GETTING PNEUMONIA". I INFORMED PATIENT THAT I WOULD LEAVE MESSAGE FOR DR SABA TO SEE ON ROUNDS. ASSISTED BACK TO BED. O2/2L ON PER NASAL CANNULA. HAS ONLY COUGHED LIGHTLY ONCE DURING TRANSFER TO TOILET. REMAINS SHORT OF BREATH WITH MINIMAL EXERTION.
[2018-08-23 07:35] VITALS: BP 111/61
--- NOTE | 2018-08-23 07:35 | NUR ---
RECEIVED REPORT. SITTING UP ON SIDE OF BED ALERT TO SELF, REORIENTED TO PLACE TIME AND SIUTATION. DENIES ANY NEEDS OR PAIN. CONTINUES ON 3L VIA NC. VS STABLE, SHIFT ASSESSMENT COMPLETE. CALL LIGHT WITHIN REACH, FALL PRECAUTIONS IN PLACE. WILL CONTINUE TO MONITOR
--- NOTE | 2018-08-23 11:45 | NUR ---
TRANSPORTED OFF FLOOR BY RADIOLOGY VIA W/C
--- NOTE | 2018-08-23 14:27 | NUR ---
IN THERAPY GYM PARTICIPATING IN OT. NO SIGNS OF DISTRESS NOTED.
--- NOTE | 2018-08-23 17:36 | NUR ---
SITTING UP ON SIDE OF BED EATING DINNER. DENIES ANY NEEDS OR PAIN. NO SIGNS OF DISTRESS NOTED. WILL CONTINUE TO MONITOR
[2018-08-23 19:39] VITALS: BP 106/65
--- NOTE | 2018-08-23 20:13 | NUR ---
AWAKE AND ALERT. RESTING IN BED WITH O2/2L ON PER NASAL CANNULA. SHORTNESS OF BREATH WITH MINIMAL EXERTION. CALL LIGHT IN REACH.
--- NOTE | 2018-08-24 02:20 | NUR ---
RESTLESS AND WAS UP AND DOWN A LOT AT FIRST HALF OF SHIFT. MOVED TO A RECLINER FOR COMFORT AND TO DECREASE SHORTNESS OF BREATH WHILE LYING DOWN. STAYED IN RECLINER FOR APPROX. TWO HOURS. NOW BACK IN BED PER HIS REQUEST. O2/2L ON PER NASAL CANNULA. WILL CONTINUE TO MONITOR. CALL LIGHT IN REACH.
--- NOTE | 2018-08-24 04:58 | NUR ---
CURRENTLY RESTING IN BED WITH NO ACUTE DISTRESS NOTED. O2/2L ON PER NASAL CANNULA. CALL LIGHT IN REACH.
[2018-08-24 07:54] LABS: BASOPHILS 0.5 % (0-2); EOSINOPHILS 2.3 % (0-7); HEMOGLOBIN 12.1 g/dL (13.5-17.5); IMMATURE GRANULOCYTES 0.1 % (0-5); LYMPHOCYTES 13.3 % (15-50); MCH 25.6 pg (26.0-34.0); MCHC 32.7 g/dL (31.0-37.0); MCV 78.4 fL (80.0-100.0); MEAN PLATELET VOLUME 11.6 fL (7.4-10.4); MONOCYTES 18.9 % (2-11); NEUTROPHILS 64.9 % (40-80); PLATELET COUNT 226 10x3/uL (130-400); RBC 4.72 10x6/uL (4.20-6.10); RDW 17.5 % (11.5-14.5); WBC 7.7 10x3/uL (4.8-10.8)
[2018-08-24 08:00] VITALS: BP 123/70
--- NOTE | 2018-08-24 08:01 | NUR ---
ALERT AND ORIENTED. EATING BREAKFAST. NO C/O PAIN. CL IN REACH. RESP EVEN AND UNLABORED.
[2018-08-24 08:21] LABS: ANION GAP 16.4 mmol/L (8-16); CALCIUM 9.2 mg/dL (8.5-10.1); CARBON DIOXIDE 22.6 mmol/L (21.0-32.0); CREATININE - SERUM 2.2 mg/dL (0.6-1.3)
--- NOTE | 2018-08-24 13:38 | NUR ---
Nutrition Follow Up: Chart reviewed Diet: Regular; Glucerna TID PO Intake: 58% meal avg BM: 08/23/18 Labs reviewed Meds noted including Lasix Rec continue current diet, supplement regimen. RD following.
--- NOTE | 2018-08-24 13:55 | NUR ---
PARTICIPATING IN THERAPY. NO C/O PAIN. RESTING IN BED AT THIS TIME. CL IN REACH.
--- NOTE | 2018-08-24 14:37 | NUR ---
CARE TEAM MEETING: PATIENT SPOUSE ATTENDED MEETING.HER QUESTIONS AND CONCERNS WERE ADDRESSED. TENATIVE DISCHARGE DATE IS 08/29/18. WILL CONTINUE TO FOLLOW WITH PATIENT.
[2018-08-24 16:42] VITALS: BP 115/67
--- NOTE | 2018-08-24 18:14 | NUR ---
NO CHANGE IN ASSESSMENT. BED ALARM ON. CL IN REACH.
--- NOTE | 2018-08-24 19:42 | NUR ---
AWAKE AND ALERT. SITTING IN WHEELCHAIR. STATES HE FEELS BETTER TODAY. RESPIRATIONS SLIGHTLY LABORED WITH SHORTNESS OF BREATH WITH MINIMAL EXERTION. ASSISTED BACK TO BED AFTER USING THE BATHROOM. CALL LIGHT IN REACH.
[2018-08-24 20:40] VITALS: BP 114/64
--- NOTE | 2018-08-25 05:25 | NUR ---
QUIET HOURS. NO ACUTE CHANGES IN CONDITION THIS SHIFT. O2/2L ON PER NASAL CANNULA. CALL LIGHT IN REACH.
[2018-08-25 08:00] VITALS: BP 112/58
[2018-08-25 08:09] LABS: ERYTHROCYTE SEDIMENTATION RATE 4 mm/hr (0-20)
--- NOTE | 2018-08-25 08:15 | NUR ---
PT RESTING IN BED WITH EYES OPEN CALL LIGHT IN REACH NO PROBLEMS WILL MONITER
--- NOTE | 2018-08-25 13:45 | CN ---
PATIENT NAME:YINKA SADNHU MEDICAL RECORD: [id number] : 43 LOCATION:[id number] ADMIT DATE: 08/16/18 ACCOUNT: [id number] CONSULTING PHYSICIAN: STEPHANIE NAIK MD REFERRING PHYSICIAN: KAREEN SABA MD DATE OF CONSULTATION: 08/24/2018 PSYCHIATRIC CONSULTATION IDENTIFYING DATA: Mr. Sandhu is 72 years old and he is admitted to the hospital on a voluntary basis. CHIEF COMPLAINT: Deconditioning. 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 Unfortunately, he has been quite confused. The patient, upon interview, is only oriented to person. He thinks he is at his house. He says he does not have any problems or complaints and is very cooperative, but not able to give me much in the way of useful history. PAST MEDICAL HISTORY: Includes stroke; neuropathy; dementia; respiratory failure from COPD and he is oxygen dependent; coronary artery disease, coronary artery bypass grafting, stent placement; sleep apnea; congestive heart failure; Cxrha-Dlpbvyhms-Kzqyf syndrome; GI bleed; and a recent urinary tract infection. The patient does not have a urinalysis on the chart that is current. He has significant lab abnormalities in both his hematology and chemistry. ASSESSMENT: Dementia, type uncertain, probably multifocal, probably vascular in nature. PLAN: The patient at this time is severely impaired cognitively. Not only does he have a number of medical conditions that affect cognition, he also has an established diagnosis of dementia. He is taking Atarax on a scheduled basis. Atarax is antihistaminic and I have taken the liberty of discontinuing it. Sometimes things in the chart that are not spoken by the patient can be very informative. HE IS ALLERGIC HALDOL WELL ATIVAN, VALIUM, AND VERSED. Chronic lunger may well have been exposed to benzodiazepines and had an adverse reaction, but why did he receive Haldol? Obviously someone was treating a disruptive behavior and it was probably associated with the dementia. Unfortunately, I think there is little that can be done for him. He is taking Cymbalta, which I do not object to. If his behaviors become problematic, I would recommend ifrah Suarez or I would be happy to assess him for transfer to the behavioral unit. However, at this point, given the patient's overall condition, it does not surprise me that he is unable to participate in rehab services or only participate minimally. I do not think there is much I can do to improve his cognition. Given the degree of dementia and his underlying vast array of medical problems, I do not think that palliative care or even hospice would be inappropriate. His cognition may improve if he has an active urinary tract infection, so it might be helpful to check a urinalysis. He is also incontinent apparently as he is lying in bed in a diaper with his oxygen on. Again, the patient is unfortunately very advanced in his mental and physical decline and comfort care would not be an unreasonable thing for him. TRANSINT:[id number] Voice Confirmation ID: [id number] DOCUMENT ID: [id number] CONSULT REPORT [id number] YINKA SANDHU PETER MD at 1345 CC: [id number] DICTATION DATE: 08/24/18 172 DELIVERY HELPER: 08/24/181911 [facility] [address] [place] [address]
--- NOTE | 2018-08-25 18:33 | NUR ---
PT RESTING IN BED WITH EYES OPEN CALL LIGHT IN REACH WILL MONITER
--- NOTE | 2018-08-25 19:47 | NUR ---
VIDA RECEIVED SITING UP IN BED. ASSESSMENT & VITAL SIGNS DONE. NO C/O PAIN OR DISTRESS. BED LOW. ALARM ON. CALL LIGHT WITHIN REACH. WILL CONTINUE TO MONITOR.
[2018-08-25 20:01] VITALS: BP 100/58
--- NOTE | 2018-08-26 02:25 | NUR ---
PATIENT EYES CLOSED. RESPIRATIONS 20 & EVEN. BED LOW. ALARM ON. CALL LIGHT WITHIN REACH. WILL CONTINUE TO MONITOR.
--- NOTE | 2018-08-26 06:17 | NUR ---
I have reviewed this patient and I concur with the Shift Assessment completed by the Licensed Practical Nurse today this shift.
[2018-08-26 07:08] LABS: ANION GAP 12.1 mmol/L (8-16); CALCIUM 8.6 mg/dL (8.5-10.1); CREATININE - SERUM 1.9 mg/dL (0.6-1.3)
[2018-08-26 07:09] LABS: POTASSIUM - SERUM 4.1 mmol/L (3.5-5.1)
[2018-08-26 07:11] LABS: BASOPHILS 0.3 % (0-2); EOSINOPHILS 2.2 % (0-7); HEMATOCRIT 35.6 % (42.0-54.0); HEMOGLOBIN 11.5 g/dL (13.5-17.5); IMMATURE GRANULOCYTES 0.1 % (0-5); LYMPHOCYTES 14.2 % (15-50); MCH 25.1 pg (26.0-34.0); MCHC 32.3 g/dL (31.0-37.0); MCV 77.7 fL (80.0-100.0); MEAN PLATELET VOLUME 11.6 fL (7.4-10.4); NEUTROPHILS 66.2 % (40-80); PLATELET COUNT 192 10x3/uL (130-400); RBC 4.58 10x6/uL (4.20-6.10); RDW 17.3 % (11.5-14.5); WBC 6.8 10x3/uL (4.8-10.8)
--- NOTE | 2018-08-26 08:15 | NUR ---
PT RESTING IN BED WITH EYES OPEN CALL LIGHT IN REACH NO PROBLEMS WILL MONITER
[2018-08-26 08:31] VITALS: BP 107/66
--- NOTE | 2018-08-26 17:13 | NUR ---
PT RESTING IN BED WITH EYES OPEN CALL LIGHT IN REACH PT EATING SUPPER NO PROBLEMS WILL MONITER
[2018-08-26 19:47] VITALS: BP 109/47
--- NOTE | 2018-08-26 20:00 | NUR ---
PATIENT RECEIVED SITTING UP IN BED. ASSESSMENT & VITAL SIGNS DONE. NO C/O PAIN OR DISTRESS AT THIS TIME. BED LOW. ALARM ON. TABLE & CALL LIGHT WITHIN REACH. WILL CONTINUE TO MONITOR.
--- NOTE | 2018-08-27 02:19 | NUR ---
I have reviewed this patient and I concur with the Shift Assessment completed by the Licensed Practical Nurse today this shift.
--- NOTE | 2018-08-27 03:42 | NUR ---
PATIENT EYES CLOSED. RESPIRATIONS 18 & EVEN. BED LOW. ALARM ON. TABLE & CALL LIGHT WITHIN REACH. WILL CONTINUE TO MONITOR.
--- NOTE | 2018-08-27 08:05 | NUR ---
ALERT WITH SOME CONFUSION NOTED. CL IN REACH. NO DISTRESS NOTED.
[2018-08-27 09:01] VITALS: BP 126/70
[2018-08-27 09:15] VITALS: BP 123/64
--- NOTE | 2018-08-27 10:34 | NUR ---
ACCIDENT URINE ON LINENS/CLOTHES THIS AM. CLEANED PATIENT AND CHANGED LINENS.
--- NOTE | 2018-08-27 13:47 | NUR ---
BATHED PATIENT. HAS HAD ACCIDENT URINE X3.
--- NOTE | 2018-08-27 13:57 | NUR ---
RESTING AT THIS TIME WITH BED ALARM ON. CL IN REACH.
[2018-08-27 16:06] VITALS: BP 116/54
--- NOTE | 2018-08-27 17:06 | NUR ---
NO CHANGE IN ASSESSMENT. NO C/O PAIN. SITTING UP IN WC AT THIS TIME. CHAIR ALARM IS ON. CL IN REACH.
[2018-08-27 19:30] VITALS: BP 105/48
--- NOTE | 2018-08-27 19:43 | NUR ---
PT SITTING UP ON SIDE OF BED. CL IN REACH. DENIES NEEDS AT THIS TIME BESIDE LYING IN BED. ASSISTED LEGS INTO BED. LEGS ELEVATED DUE TO SWELLING. RESP EVEN AND UNLABORED. CONFUSED. LUNGS CLEAR BOWEL ACTIVE X4. BED IN LOW SIDE RAILS X3. ASSESSMENT COMPLETED. O2 ON 2L VIA NC. WCTM
--- NOTE | 2018-08-28 02:11 | NUR ---
PT SITTING UP ON SIDE OF BED. WENT INTO ROOM TO CHECK ON PT AND ASKED WHAT HE WAS DOING AND HE STATED HE WAS ABOUT TO GO POOP. ASSISTED TO AND FROM BATHROOM. PT ASKED "HAVE YOU SEEN RADAR MY DOG" THIS NURSE STATED "YOU ARE IN THE HOSPITAL AND THERE ARE NO DOGS IN HERE". ASSISTED PT BACK TO BED. INSTRUCTED PT TO GET CLOSE TO THE RAIL HE COULD. PT STATED " DOES GETTING CLOSE TO THE RAIL KEEP THE RABITS AWAY?" REORIENTATED PT AGAIN. DENIES FURTHER NEEDS. CL IN REACH. BED ALARM ON. CPOC
--- NOTE | 2018-08-28 03:56 | NUR ---
I have reviewed this patient and I concur with the Shift Assessment completed by the Licensed Practical Nurse today this shift.
--- NOTE | 2018-08-28 07:38 | NUR ---
ALERT WITH CONFUSION. BREAKFAST SERVED. NO C/O PAIN. CL IN REACH. BED ALARM ON.
[2018-08-28 08:03] VITALS: BP 133/70
--- NOTE | 2018-08-28 10:52 | NUR ---
RESTING IN BED. BED ALARM ON. CL IN REACH. NO DISTRESS NOTED.
[2018-08-28 15:35] VITALS: BP 130/64
--- NOTE | 2018-08-28 16:04 | NUR ---
NO CHANGE IN ASSESSMENT. FAMILY HERE. BED ALARM ON. CL IN REACH.
--- NOTE | 2018-08-28 19:44 | NUR ---
PT SITTING UP ON SIDE OF BED. CL IN REACH. BED ALARM ON. BED IN LOW SIDE RAILS X2. O2 ON 2L VIA NC. PT MOANING DUE TO BACK PAIN. NEXT PAIN PILL IS NOT AVAILABLE AT THIS TIME. PT IS PICKING AT SORES ON HIS ARMS ENCOURAGED TO STOP PICKING AT THEM AND MAKING THEM BLEED. PT ALSO HAS PITTING EDEMA IN BILAT ARMS AND BILAT LEGS 2+ REFUSES TO LAY DOWN IN BED AND ELEVATE LEGS. ENCOURAGED MULTIPLE TIMES TO DO SO. WCTM. RESP EVEN AND UNLABORED. ASSESSMENT COMPLETED.
[2018-08-28 20:08] VITALS: BP 101/64
--- NOTE | 2018-08-28 20:09 | NUR ---
PT SITTING UP ON SIDE OF BED WANTING TO USE BATHROOM. BED LINEN ALREADY SOILED. CHANGED LINEN. ASSISTED TO AND FROM BATHROOM. CHANGED PANTS AND BRIEF. BACK IN BED. ENCOURAGE TO LAY DOWN AND HE DID. HAD TO REPLACE ARMBAND DUE TO SWELLING. FOIL ODOR COMING FROM WRIST WHEN REMOVED ARMBAND AND WATCH. ARMBAND WAS YELLOW AND HAD VERY STRONG FOIL ODOR. CPOC
--- NOTE | 2018-08-28 22:38 | NUR ---
ASSISTED PT INTO SHOWER AND ASSISTED BATHING. PT PREFORMED TASK WELL MIN ASSIST WITH BATHING. CLOTHES CHANGED. PT STATED HE FELT BETTER. DEODORANT APPLIED UNDER ARMS. PT BACK IN BED. LEGS ELEVATED. CL IN REACH BED ALARM ON. CPOC
--- NOTE | 2018-08-29 00:10 | NUR ---
I have reviewed this patient and I concur with the Shift Assessment completed by the Licensed Practical Nurse today this shift.
--- NOTE | 2018-08-29 03:00 | NUR ---
PT SITTING ON SIDE OF BED. DENIES HELP OR NEEDS. ASSISTED PT BACK IN BED. CL IN REACH. BED ALARM ON. CPOC
--- NOTE | 2018-08-29 06:16 | NUR ---
PT BS 52. OFFERED DENIZ CRACKERS AND PEANUT BUTTER BUT PT REFUSED. GAVE ORANGE JUICE AND PT DRANK 8 OZ. WCTM
[2018-08-29 07:12] LABS: ANION GAP 12.9 mmol/L (8-16); CARBON DIOXIDE 28.1 mmol/L (21.0-32.0); CREATININE - SERUM 1.9 mg/dL (0.6-1.3)
[2018-08-29 07:19] LABS: BASOPHILS 0.9 % (0-2); EOSINOPHILS 6.8 % (0-7); HEMATOCRIT 39.7 % (42.0-54.0); HEMOGLOBIN 12.8 g/dL (13.5-17.5); IMMATURE GRANULOCYTES 0.3 % (0-5); LYMPHOCYTES 15.1 % (15-50); MCH 25.5 pg (26.0-34.0); MCHC 32.2 g/dL (31.0-37.0); MCV 79.1 fL (80.0-100.0); MEAN PLATELET VOLUME 11.2 fL (7.4-10.4); MONOCYTES 12.8 % (2-11); NEUTROPHILS 64.1 % (40-80); RBC 5.02 10x6/uL (4.20-6.10); RDW 17.7 % (11.5-14.5); WBC 7.8 10x3/uL (4.8-10.8)
[2018-08-29 07:24] LABS: PLATELET COUNT 244 10x3/uL (130-400)
[2018-08-29 08:00] VITALS: BP 110/56
--- NOTE | 2018-08-29 09:30 | NUR ---
PATIENT IS CONFUSED. BED/CHAIR ALARM ON AT ALL TIMES. CALL LIGHT WITHIN REACH. VOICES NO NEEDS. WILL CONTINUE WITH PLAN OF CARE
--- NOTE | 2018-08-29 13:38 | NUR ---
Nutrition follow-up: Diet: Regular as tolerated PO intake ~50% average of last 9 meals Labs reviewed +BM Pt remains confused per nursing. RDN following.
--- NOTE | 2018-08-29 14:02 | NUR ---
PATIENT RESTING IN BED AFTER THERAPY AND LUNCH. BED ALARM ON
--- NOTE | 2018-08-29 19:36 | NUR ---
PT UP ON SIDE OF BED, ROCKING AND MOANING WHEN ASKED IF HE WAS IN PAIN, HE SAID NO AND CARRIED ON A NORMAL CONVERSATION, PREVIOUS GAVE PRN PAIN MED AROUND 4PM, FLUIDS AND CALL LIGHT WITHIN REACH
[2018-08-29 20:05] VITALS: BP 104/80
--- NOTE | 2018-08-30 01:20 | NUR ---
PT IN BED LOWEST POSITION, EYES CLOSED, AROUSES EASILY TO VOICE, RESPIRATIONS EVEN AND UNLABORED, NO IMMEDIATE NEEDS NOTED AT THIS TIME, FLUIDS AND CALL LIGHT WITHIN REACH
[2018-08-30 08:00] VITALS: BP 108/64
--- NOTE | 2018-08-30 08:43 | NUR ---
ALERT AND CONFUSED. NO DISTRESS NOTED. BED ALARM ON. CL IN REACH.
--- NOTE | 2018-08-30 14:33 | NUR ---
DC'D HOME WITH . DC INSTRUCTIONS GIVEN TO . VERBALIZES UNDERSTANDING. PATIENT CANCER MED RETURNED TO .(HE USED IT WHILE IN HOSPITAL).ASSISTED TO CAR IN WC PER STAFF FOR DC HOME WITH .
--- NOTE | 2018-08-30 15:11 | NUR ---
CASE MANAGEMENT NOTE LATE ENTRY- Patient discharging homw with family. [facility] appointment scheduled and information faxed. Patient has home O2, brought portable for discharge home. Patient Choice form and IM[facility] forms signed, copy given to patient and filed in chart. Milana Sotomayor, ATMOSPHERIC CHEMIST Rehab PD
--- NOTE | 2018-10-06 10:44 | DS ---
PATIENT:YINKA SANDHU :43 MEDICAL RECORD: [id number] DISCHARGE SUMMARY ADMISSION DATE: 08/16/18 DISCHARGE DATE: 08/30/18 This is a discharge dated 08/30/2018 from inpatient rehabilitation. PRIMARY DIAGNOSIS: Decreased functional ability and ability to provide activities of daily living secondary to disuse myopathy. SECONDARY DIAGNOSES: 1. Non-Q-wave myocardial infarction. 2. Atrial fibrillation. 3. Rxbyb-Djkirmdal-Yfxpc syndrome. 4. Chronic hypoxic respiratory failure. 5. Chronic obstructive pulmonary disease. 6. Obstructive sleep apnea. 7. Renal insufficiency. 8. Hypertension. 9. Diabetes. 10. Hypokalemia. 11. Hyperlipidemia. 12. Depression/anxiety. 13. Confusion. 14. Frequent falls. 15. Urinary tract infection. 16. Gastrointestinal bleed. 17. Congestive heart failure. 18. Coronary artery disease. 19. Dementia. 20. Neuropathy. 21. History of stroke. CONSULTS DURING THIS HOSPITALIZATION: Psychiatry with Dr. Wiggins. HOSPITAL COURSE: Full H&P is located elsewhere on the chart on this 72-year-old male who was admitted to inpatient rehab for physical therapy and occupational therapy to improve gait, transfer skills, bed mobility, and activities of daily living to a modified independent level. He was evaluated by PT, OT and ST and their plans of care were followed. He required care home care for observation and assessment and medication administration. He was on Macrobid for antibiotic coverage and had nebulized medications for respiratory support. Electrolytes were managed by protocol. Fingerstick blood sugars were monitored throughout the stay with appropriate adjustment in medications as needed. He had significant confusion. He was seen by psychiatry, Dr. Wiggins with no new recommendations. He was cooperative with therapies, progressing towards goals. Case management was involved for discharge planning. He was considered stable for discharge on 08/30/2018. Having made progress with PT, OT and ST; however, hampered by decreased mental status. It was felt that he would benefit from continued care as an outpatient. DISCHARGE MEDICATIONS: As per discharge medication reconciliation. DISCHARGE DISPOSITION: The patient is discharged home. He will continue his current diet and level of activity. He will be seen by [facility]. He will follow up with primary care and specialists as directed and already has DISCHARGE SUMMARY REPORT [id number] YINKA SANDHU home oxygen set up through [facility]. At least 30 minutes was spent in this discharge activity. TRANSINT:[id number] Voice Confirmation ID: [id number] DOCUMENT ID: [id number] Dictated By: NEGRO KRAFT I have interviewed/examined the above patient and agree with these documented findings. KAREEN SABA MD at 1046 at 1044 CC: [id number] DICTATION DATE: 10/02/18 1616 ICE CREAM MIXER: 10/02/18 2305 DIS IN 08/30/18 [id number] [place] [id number]
== END 2018-08-30 13:15 | disposition home health service (06) | DRG 92 ==
LOC: D.REHAB 12:20
PROVIDERS: ADMIT Emergency Medicine; ATTEND Emergency Medicine
DX: G72.89 Other specified myopathies (principal); N39.0 Urinary tract infection, site not specified; J96.11 Chronic respiratory failure with hypoxia; I12.9 Hypertensive chronic kidney disease with stage 1 through stage 4 chronic kidney disease, or unspecified chronic kidney disease; E11.22 Type 2 diabetes mellitus with diabetic chronic kidney disease; N18.9 Chronic kidney disease, unspecified; R15.9 Full incontinence of feces; R32 Unspecified urinary incontinence; J45.909 Unspecified asthma, uncomplicated; K21.9 Gastro-esophageal reflux disease without esophagitis; G47.33 Obstructive sleep apnea (adult) (pediatric); I48.91 Unspecified atrial fibrillation; E78.5 Hyperlipidemia, unspecified; F03.90 Unspecified dementia, unspecified severity, without behavioral disturbance, psychotic disturbance, mood disturbance, and anxiety; F41.8 Other specified anxiety disorders; R41.82 Altered mental status, unspecified